=== PATIENT | female | born 1965 | race Caucasian/White ===

== ENCOUNTER 2018-09-14 22:48 | Inpatient (IN) ==
--- NOTE | 2018-09-15 01:39 | MB ---
cc: Randy Colmenares MD, PhD DATE: 09/15/2018 REASON FOR CONSULTATION: Stroke alert. HISTORY OF PRESENT ILLNESS: This is a 52-year-old woman who was in her usual state of health until this evening when she fell at home. She presented to the emergency room and was found to have a trimalleolar fracture of her right ankle and arrangements were being made for admission to the [facility] from [facility] in ER with orthopedic consultation. Initially while in the ER, she was alert, was speaking clearly with no focal deficits. At 12:45 a.m., she suddenly developed difficulty expressing herself and had a left facial droop. A stroke alert was therefore called. I was consulted and evaluated the patient via the teleneurology system. The patient is not on any anticoagulants. PAST MEDICAL HISTORY: Remarkable for hypertension and diabetes. MEDICATIONS AT HOME: Listed as metformin and glyburide. NEUROLOGICAL EXAMINATION CONDUCTED VIA THE TELENEUROLOGY SYSTEM: VITAL SIGNS: Blood pressure 112/56, pulse 93, respiratory rate 18. HIGHER CORTICAL FUNCTION TESTING: The patient is alert. She has an expressive aphasia, is unable to speak fluently. She is able to answer some questions and repeat some sentences, but it is very fragmentary. At other times, she is not able to repeat at all. There is no neglect. CRANIAL NERVES: She has got a right facial droop at this time. MOTOR: She has weakness of the right arm compared with the left. She does have a drift in the right upper extremity. There is no drift in the lower extremities. SENSORY: Intact. CEREBELLAR TESTING: There is mild dysmetria right upper extremity. IMAGING STUDIES: CT of the brain: There is some motion artifact, but there is no evidence for hemorrhage. LABORATORY DATA: The white count is 9300, hemoglobin 12.8, hematocrit 38.9%, platelet count 250,000. PT 9.7, INR 0.9, APTT 19.5. Sodium is 143, potassium 4.3, chloride 109, CO2 22, BUN is 17, creatinine 0.7, GFR is 88, glucose 378. Tox screen and serum alcohol level was 79. IMPRESSION: The examination is consistent with a probable left hemisphere stroke with expressive aphasia and mild right-sided weakness. Her calculated NIH stroke scale is 8. Because of the ankle fracture as well as the potential for head trauma on her fall, I recommended against giving TPA, especially with the ankle fracture with the hemorrhagic risk. I recommended proceeding with CT angiogram of the head and neck to assess as to whether or not there would be a large vessel occlusion amenable for clot extraction. This is currently being conducted. I called the interventional radiologist surveyor oil well directional, Dr. Kian Mora, and discussed the case with him and he is going to be reviewing the CT angiogram results. I would recommend close neurological checks, further evaluation after transfer to the main hospital with MRI and MRA of the brain, as well as echocardiogram. ADDENDUM Since the original dictation, CT angiogram has been obtained of the head and neck, and I spoke with Dr. Kian Mora regarding the results. The patient has a very distal left M2 and M3 thrombus as well as a very significant left carotid stenosis. He feels that because of these findings and the distal nature of the thrombus as well as the difficulty passing the carotid with the catheter that she would not be a candidate for intervention. Given this finding, I did recommend proceeding with IV TPA, although there was an increased risk of hemorrhage regarding the ankle fracture; however, there is definite thrombus in the left middle cerebral artery. I discussed this with Dr. Rudy Dunlap of the emergency department as the patient has now been transferred to the main ED and we will proceed with IV TPA per protocol. We will wrap the ankle and watch the ankle fracture carefully. Randy Colmenares MD, PhD MAICO/lidia , 01:58 AM , 02:06 AM
[2018-09-15] MEDS ORDERED: ALTEPLASE DRIP IV.SIG ONE (01:41)
[2018-09-15] MEDS ORDERED: Alteplase Bolus 9 MG/9 ML Syringe IV.PUSH ONE (01:41)
--- NOTE | 2018-09-15 02:17 | ED ---
HPI General Chief Complaint: Stroke Alert Time Seen by Provider: 09/15/18 01:37 EST History of Present Illness HPI Narrative: This is a 52-year-old female history diabetes mellitus, presents here as a transfer from [place] on a emergency department for stroke alert. Patient had a presentation at [facility] after she had a fall and had a broken ankle. At approximately 12:45 AM, the patient started to experiencing expressive a aphasia and receptive aphasia. She also had a right upper extremity drift and intermittent right-sided facial droop. The patient has stroke scale of 8. At that time Dr. Colmenares did tell neurology and evaluated the patient. Initially there was concern given the fact that she had a broken ankle. The initial discussion was that she was not a TPA candidate because of the ankle. Patient was transferred emergently to the [facility] and when she was on rote, Dr. Colmenares discussed with the orthopedic surgeon the risks and benefits of TPA. It was then decided that she would benefit from the TPA. When the patient arrived here, she was unable to express herself or tell me whether or not she was agreeable to the TPA. Her was on his way. When he arrived , risks and benefits were discussed and the decision was to administer the TPA. Please note that she was 2.5 hours into her stroke window when the decision was made. Related Data Home Medications Medication Instructions Recorded Confirmed glyburide 5 mg PO BID 09/14/18 09/15/18 metformin 500 mg PO BID 09/14/18 09/15/18 Allergies Allergy/AdvReac Type Severity Reaction Status Date / Time No Known Allergies Allergy Verified 09/15/18 01:40 EST Review of Systems ROS Unobtainable ROS Unobtainable: unobtainable due to mental status (Patient is unable to give me review of systems. Please see HPI.) ROS: all other systems reviewed are negative PMFSH Medical History Medical History Diabetes 1.5, managed as type 2 (Acute) Surgical History Surgical History No history of previous surgery (Acute) Social History Social History Substance History: No History of Abuse Second Hand Smoke Exposure: Yes Smoking Status: Current every day smoker Tobacco Type: Cigarettes How Often Do You Have a Drink Containing Alcohol: 2 to 4 times a month Immunization History Tetanus Immunization: Unsure Exam Narrative Exam Narrative: GENERAL: Well-developed well-nourished female in no acute respiratory distress. SKIN: Focused skin assessment warm/dry. HEAD: Atraumatic. Normocephalic. EYES: Pupils equal and round. No scleral icterus. No injection or drainage. ENT: No nasal bleeding or discharge. Mucous membranes pink and moist. NECK: Trachea midline. Supple. CARDIOVASCULAR: Regular rate and rhythm. No murmur appreciated. RESPIRATORY: No accessory muscle use. Clear to auscultation. Breath sounds equal bilaterally. GASTROINTESTINAL: Abdomen soft, non-tender, nondistended. Hepatic and splenic margins not palpable. MUSCULOSKELETAL: No obvious deformities. No clubbing. No cyanosis. No edema. NEUROLOGICAL: Awake and alert. The patient has incomprehensible words. She knows what she wants to say but cannot say. She also has a right upper extremity arm drift. Her stroke scale was then 9 here. Course Initial Documented Vital Signs Temperature 98.3 F 09/15/18 01:34 EST Pulse Rate 97 H 09/15/18 01:34 EST Respiratory Rate 18 09/15/18 01:34 EST Blood Pressure 133/70 09/15/18 01:34 EST Pulse Oximetry 96 09/15/18 01:34 EST Last Documented Vital Signs Temperature 98.3 F 09/15/18 01:34 EST Pulse Rate 108 H 09/15/18 01:55 EST Respiratory Rate 18 09/15/18 01:34 EST Blood Pressure 134/65 09/15/18 01:55 EST Pulse Oximetry 96 09/15/18 01:39 EST Critical Care Time Critical Care Time: Yes Total Critical Care Time: 45 Attestation: Aggregate critical care time was 45 minutes. Time to perform other separately billable procedures was not included in the critical care time. My time did not include minutes spent treating any other patients simultaneously or on activities that did not directly contribute to the patient's treatment. The services I provided to this patient were to treat and/or prevent clinically significant deterioration that could result in: , hemorrhage, worsening condition. I provided critical care services requiring my management, as noted below: Chart data review, documentation time, medication orders and management, vital sign assessments/reviewing monitor data, ordering and reviewing lab tests, ordering and interpreting/reviewing x-rays and diagnostic studies, care of the patient and discussion of the patient with the admitting physicians. NIH Stroke Scale NIH Stroke Scale Level of Consciousness: 0-Alert Orientation Questions: 0-Answers both correct Responds to Commands: 0-Both tasks correct Gaze Eye Movement: 1-Partial gaze palsy Visual Nunn: 1-Partial hemianopia Facial Movement: 2-Partial facial palsy Motor Functions Arm LEFT: 0-No drift Motor Functions Arm RIGHT: 1-Drift before 10 seconds Motor Functions Leg LEFT: 0-No drift Motor Functions Leg RIGHT: 0-No drift Limb Ataxia: 0-No ataxia Sensory Loss: 0-No sensory loss Best Language: 2-Severe aphasia Articulation: 2-Severe dysarthria Extinction or Inattention Sensory: 0-Absent Total: 9 Medical Decision Making MDM Narrative Medical decision making narrative: 52-year-old female presents [facility] emergency department with acute stroke. Patient also has a trimalleolar right ankle fracture. She is in a splint for her ankle fracture. The case was discussed with Dr. Colmenares who discussed with the orthopedic surgeon the risks and benefits of TPA. While the patient was on route via EMS, the decision was made to give the patient TPA. When the arrived, risks and benefits were discussed with him and he decided for the TPA. TPA was started at 2.5 hours into the stroke. The patient will be admitted to the intensive care unit , under Dr. Aneta Thomson. Case was discussed with Dr. Thomson. Dr. Saad Colmenares will also follow as a systems security consultant. Medical Screen Exam Complete: Yes Emergency Medical Condition: Yes Differential Diagnosis Differential Diagnosis: Embolic versus hemorrhagic CVA versus right ankle fracture versus contusion Discharge Plan Discharge Disposition Patient Disposition: 30 Still Patient Discharge Details Diagnosis: Acute CVA (cerebrovascular accident), Closed trimalleolar fracture of ankle, Diabetes mellitus Physicians Team ED Provider: Rudy Dunlap Primary Care Provider: Steven Paloom Rxs /Orders / Referrals /Forms Prescriptions: No Action metformin 500 mg Tablet 500 mg PO BID RF: 0 glyburide 5 mg Tablet 5 mg PO BID RF: 0 Discharge Interventions Interventions: Vital Signs Last Done: 09/15/18 01:55 Status ED Status: With Doctor
[2018-09-15] MEDS ORDERED: Morphine Inj 4 MG/ML Vial IV.PUSH ONE (02:48)
[2018-09-15] MEDS ORDERED: Morphine Inj 4 MG/ML Vial ONE (02:57)
[2018-09-15] MEDS ORDERED: Dextrose 50% in Water 50 ML Vial IV.PUSH PRN (04:58)
[2018-09-15] MEDS ORDERED: niCARdipine Inj 25 MG in Sodium Chlor 0.9% Inj 240 ML IV.CONT PRN (05:00)
[2018-09-15] MEDS ORDERED: Bisacodyl 10 MG Supp RECTAL PRN (05:11)
[2018-09-15] MEDS ORDERED: Acetaminophen 325 MG Tablet PO PRN (05:11)
[2018-09-15] MEDS: hydrALAZINE HCl Inj 20 MG/ML Vial IV.PUSH PRN ×3 (06:00→17:10)
[2018-09-15] MEDS: Sod Chloride 0.9% Inj 1,000 ML IV.CONT SCH ×2 (06:01→21:10)
--- NOTE | 2018-09-15 06:30 | P.HPCC ---
History of Present Illness Service: Critical care medicine Primary Care Physician: Steven Palomo MD Chief Complaint: Fall, R ankle fracture, stroke History of Present Illness: 52-year-old female with past medical history of diabetes, tobacco abuse who tripped over a rake in the yard and presented to [facility] with right ankle pain. She was diagnosed with R trimalleolar fracture and preparations were being made for transfer to [facility] for eventual operative management. While in the [place] ED, she became agitated with aphasia and R facial droop. Stroke alert was called. CT brain was negative for hemorrhage. She had no head trauma. Initial preference was to avoid systemic TPA due to the fracture. Stat CTA brain and carotids were performed and she was transferred to [facility] for possible IR thrombectomy/ intraarterial lysis. CTA demonstrates proximal L MCA occlusion. Dr. Dunlap states images were reviewed by Dr. Mora and patient was not a candidate for IR intervention due to carotid atherosclerotic disease with significant stenosis. At that point, decision was made to proceed with systemic TPA which has been administered. Patient has persistent expressive aphasia. No prior h/o stroke or TIA. No seizure. She was drinking tonight with friends before this happened, but denies daily EtOH. - Diagnosis (1) Acute ischemic left MCA stroke (2) Tobacco abuse (3) Aphasia due to acute stroke (4) Fall (5) Closed trimalleolar fracture of ankle (6) Diabetes mellitus (7) HLD (hyperlipidemia) Inpatient Certification: I certify that the inpatient services were ordered in accordance with Medicare regulations governing the order. This includes certification that hospital inpatient services are reasonable and necessary and in the case of services not specified as inpatient-only under 42 CFR 419.22(n), that they are appropriately provided as inpatient services in accordance to with the 2-midnight benchmark under 43 CFR 412.3(e) Estimated Total Length of Stay (Days): 7 Plans for Post Hospital Care: Not yet determined Review of Systems Constitutional: Denies chills Cardiovascular: Denies chest pain Gastrointestinal: Denies abdominal pain, Denies black, tarry stools, Denies bright, red blood in stools Genitourinary: Denies abnormal periods, Denies abnormal vaginal bleeding PMF - History History Provided By: Patient, Significant Other - Medical History Medical History: Medical History (Last Updated 09/15/18 @ 08:50 by Aneta Thomson MD) Diabetes mellitus Tobacco abuse - Surgical History Surgical History: Surgical History (Last Updated 09/14/18 @ 23:06 by Lesley Spring RN) No history of previous surgery - Family History Family History: Family History (Last Updated 09/15/18 @ 08:48 by Aneta Thomson MD) Father Hx of CABG CAD (coronary artery disease) - Tobacco History Second Hand Smoke Exposure: No Tobacco Use In Past 30 Days: Yes Smoking Status: Current some day smoker Tobacco Type: Cigarettes - Alcohol History How Often Do You Have a Drink Containing Alcohol: Monthly or less - Substance Use History Substance History: No History of Abuse - Immunization History Tetanus Immunization: Unsure Medications and Allergies Active Medications: Active Medications Acetaminophen (Tylenol) 650 mg PO Q6H PRN PRN Reason: PAIN 1-10 AND/OR FEVER >101F Al Hydroxide/Mg Hydroxide (Milk Of Magnestrellita Liq) 30 ml PO Q12H PRN PRN Reason: Mild Constipation Albuterol (Albuterol Neb (Prn)) 2.5 mg NEB Q2HR NEB PRN PRN Reason: SHORTNESS OF BREATH/WHEEZING Bisacodyl (Dulcolax Supp) 10 mg RECTAL DAILY PRN PRN Reason: SEVERE CONSITIPATION Chlorhexidine Gluconate (Chlorhexidine 2% Cloth) 3 pack TOPICAL DAILY@0400 JULIAN Stop: 09/21/18 03:59 Chlorhexidine Gluconate (Chlorhexidine 2% Cloth) 3 pack TOPICAL DAILY@0400 PRN PRN Reason: Extra cloth needed Stop: 09/21/18 03:59 Dextrose (D50w Vial) 50 ml IV.PUSH UNSCH PRN PRN Reason: PER HYPOGLYCEMIA PROTOCOL Famotidine (Pepcid Pf Inj) 20 mg IV.PUSH Q12HR JULIAN Glucagon (Glucagon Inj) 1 mg OTHER PRN PRN PRN Reason: for Hypoglycemia Protocol Hydralazine HCl (Apresoline Inj) 10 mg IV.PUSH Q4H PRN PRN Reason: SBP >180/DBP >100 Last Admin: 09/15/18 06:00 Dose: 10 mg Nicardipine HCl 25 mg/ Sodium (Chloride) 250 mls @ 50 mls/hr IV.CONT TITRATE PRN; Protocol PRN Reason: Per Protocol Sodium Chloride (Ns Inj) 1,000 mls @ 70 mls/hr IV.CONT .[id number] [facility] Last Admin: 09/15/18 06:01 Dose: 70 mls/hr Insulin Aspart (Novolog Insulin Correctional Sugar Inj) 0 unit SQ Q4HR [facility]; Protocol Labetalol HCl (Trandate Inj) 10 mg IV.PUSH Q20M PRN PRN Reason: SBP >180/DBP >100 Lactulose (Lactulose Liq) 30 ml PO DAILY PRN PRN Reason: SEVERE CONSITIPATION Ondansetron HCl (Zofran Inj) 4 mg IV.PUSH Q6H PRN PRN Reason: NAUSEA OR VOMITING Senna/Docusate Sodium (Deena-Colace) 1 tab PO BID [facility] Sennosides (Senokot) 17.2 mg PO Q12H PRN PRN Reason: Moderate Constipation Sodium Chloride (Ns Flush) 2 ml IV.FLUSH BID [facility] Sodium Chloride (Ns Flush) 2 ml IV.FLUSH PRN PRN PRN Reason: FLUSH AFTER USING IV ACCESS Allergies Allergy/AdvReac Type Severity Reaction Status Date / Time No Known Allergies Allergy Verified 09/15/18 01:40 EST Home Medications Medication Instructions Recorded Confirmed Type glyburide 5 mg PO BID 09/14/18 09/15/18 History metformin 500 mg PO BID 09/14/18 09/15/18 History Exam Vital signs: Vital Signs 09/15/18 01:34 EST 09/15/18 01:39 EST 09/15/18 01:55 EST Temperature 98.3 F Pulse Rate 97 H 108 H Respiratory Rate 18 Blood Pressure 133/70 134/65 Pulse Oximetry 96 96 09/15/18 03:10 Temperature Pulse Rate 96 H Respiratory Rate Blood Pressure 142/64 H Pulse Oximetry Intake & Output 09/14/18 09/14/18 09/15/18 06:59 18:59 05:59 Weight 62.2 kg Other: Weight On Admission 62.2 kg Narrative: GENERAL: Well-nourished, well-developed female patient who is aphasic, frustrated by this. SKIN: Warm and dry. HEAD: Atraumatic. Normocephalic. EYES: Pupils equal and round. No scleral icterus. No injection or drainage. ENT: No nasal bleeding or discharge. Mucous membranes pink and moist. NECK: Trachea midline. No JVD. CARDIOVASCULAR: Regular rate and rhythm, sinus rhythm on the monitor. No murmurs rubs or gallops. RESPIRATORY: No accessory muscle use. Clear to auscultation. Breath sounds equal bilaterally. On room air GASTROINTESTINAL: Abdomen soft, non-tender, nondistended. MUSCULOSKELETAL: Extremities without clubbing, cyanosis. Posterior splint in place RLE, knee immobilizer in place. Normal cap refill. NEUROLOGICAL: Awake and alert. Tongue deviates to right. Right lower facial droop. No pronator drift. Strength 5/5 BUE and sensation intact. 5/5 hip flexor bilaterally, 5/5 L plantar and dorsiflexion. Caprini VTE Risk Assessment Caprini VTE Risk Assessment: Moderate/High Risk (score >= 2) VTE Pharmacological Exception Reason: Documented (TPA ) Caprini Risk Assessment Model: Point Value = 1 Point Value = 2 Point Value = 3 Point Value = 5 Age 41-60 Minor surgery BMI > 25 kg/m2 Swollen legs Varicose veins or History of unexplained or recurrent spontaneous Oral contraceptives or hormone replacement Sepsis (< 1 month) Serious lung disease, including pneumonia (< 1 month) Abnormal pulmonary function Acute myocardial infarction Congestive heart failure (< 1 month) History of inflammatory bowel disease Medical patient at bed rest Age 61-74 Arthroscopic surgery Major open surgery (> 45 min) Laparoscopic surgery (> 45 min) Malignancy Confined to bed (> 72 hours) Immobilizing plaster cast Central venous access Age >= 75 History of VTE Family history of VTE Factor V Leiden Prothrombin [id number] Lupus anticoagulant Anticardiolipin antibodies Elevated serum homocysteine Heparin-induced thrombocytopenia Other congenital or acquired thrombophilia Stroke (< 1 month) Elective arthroplasty Hip, pelvis, or leg fracture Acute spinal cord injury (< 1 month) Prophylaxis Regimen: Total Risk Factor Score Risk Level Prophylaxis Regimen 0-1 Low Early ambulation 2 Moderate Order ONE of the following: *Sequential Compression Device (SCD) *Heparin 5000 units SQ BID 3-4 Higher Order ONE of the following medications: *Heparin 5000 units SQ TID *Enoxaparin/Lovenox 40 mg SQ daily (WT < 150 kg, CrCl > 30 mL/min) *Enoxaparin/Lovenox 30 mg SQ daily (WT < 150 kg, CrCl > 10-29 mL/min) *Enoxaparin/Lovenox 30 mg SQ BID (WT < 150 kg, CrCl > 30 mL/min) AND/OR *Sequential Compression Device (SCD) 5 or more Highest Order ONE of the following medications: *Heparin 5000 units SQ TID (Preferred with Epidurals) *Enoxaparin/Lovenox 40 mg SQ daily (WT < 150 kg, CrCl > 30 mL/min) *Enoxaparin/Lovenox 30 mg SQ daily (WT < 150 kg, CrCl > 10-29 mL/min) *Enoxaparin/Lovenox 30 mg SQ BID (WT < 150 kg, CrCl > 30 mL/min) AND *Sequential Compression Device (SCD) Assessment and Plan - Problem List (1) Acute ischemic left MCA stroke Code(s): I63.512 - Cerebral infarction due to unspecified occlusion or stenosis of left middle cerebral artery Status: Acute (2) Tobacco abuse Code(s): Z72.0 - Tobacco use Status: Chronic (3) Aphasia due to acute stroke Code(s): I63.9 - Cerebral infarction, unspecified; R47.01 - Aphasia Status: Acute (4) Fall Code(s): W19.XXXA - Unspecified fall, initial encounter Status: Acute (5) Closed trimalleolar fracture of ankle Code(s): S82.853A - Displaced trimalleolar fracture of unspecified lower leg, initial encounter for closed fracture Status: Acute (6) Diabetes mellitus Code(s): E11.9 - Type 2 diabetes mellitus without complications Status: Chronic (7) HLD (hyperlipidemia) Code(s): E78.5 - Hyperlipidemia, unspecified Status: Chronic - Assessment and Plan Plan: NEURO: Acute ischemic left MCA stroke Bilateral carotid stenosis s/p TPA 02:16 on 09/15. No antiplatelets or anticoagulants for 24 hours post TPA. Will need antiplatelet therapy. F/u CT brain 24 hours post-TPA. Neurochecks and BP monitoring in ISC. Maintain SBP <180/100 due to TPA, avoid hypotension with carotid disease. 2D Echo, fasting lipid, hgbA1c, telemetry monitoring (currently sinus rhythm) F/u MRI Neurology consult. Vascular surgery consult RESP: Tobacco abuse Tobacco cessation counseling discussed. On room air. CV: HTN Labetalol/hydralazine/cardene prn SBP <180/100 for first 24 hours post TPA. HLD pravastatin 40 mg daily GI: NPO. Speech therapy consult to evaluate swallow FEN/RENAL: Normal creatinine. Voiding. Replace electrolytes as indicated ID: Monitor for signs and symptoms of infection HEME: Monitor CBC ENDO: Diabetes mellitus, with acute hyperglycemia Hold oral anti-hypoglycemics including metformin Monitor bedside glucose q4 and initiate low dose sliding scale MSK: Trimalleolar ankle fracture Neurovascular checks, maintain splint and knee immobilizer. Eventual operative management when stabilized from standpoint of stroke. PROPH: SCD for DVT prophylaxis. No pharmacologic DVT prophylaxis for 24 hours post TPA. Famotidine 20 mill grams IV every 12 hours for stress ulcer prophylaxis. ACCESS: Peripheral IV. No central or arterial sticks for 24 hours post TPA Discussed with Dr. Win and Dr. Dunlap. Patient and her updated at bedside. Discussed with Dr. Dempsey; eventual operative repair when stabilized from standpoint of stroke. He states operative repair can wait up to 1- 1.5 week,, also needs to allow swelling to ease. Timing of operative repair will be determined based on stroke clinical course. Dr. Kumar assuming ortho care Sunday. Level 3 H and P H&P: Quality - VTE Deep Vein Thrombosis/Pulmonary Embolism Present on Admission: No (5) Closed trimalleolar fracture of ankle Qualifiers: Encounter type: initial encounter Laterality: right Qualified Code(s): S82.851A - Displaced trimalleolar fracture of right lower leg, initial encounter for closed fracture (6) Diabetes mellitus Qualifiers: Diabetes mellitus type: type 2 Diabetes mellitus jail insulin use: without termination clerk use Diabetes mellitus complication status: with neurologic complications Qualified Code(s): E11.69 - Type 2 diabetes mellitus with other specified complication (7) HLD (hyperlipidemia) Qualifiers: Hyperlipidemia type: mixed hyperlipidemia Qualified Code(s): E78.2 - Mixed hyperlipidemia
[2018-09-15 07:21] LABS: Chol/HDL Ratio 8.03 Ratio; HDL Cholesterol 25.5 mg/dL (40.0-60.0)
--- NOTE | 2018-09-15 08:26 | P.CONOP ---
[facility] Orthopedics Consult Note - [facility] Consult date: 09/15/18 Requesting physician: Aneta Thomson Consult reason: fracture Chief complaint: Acute CVA, Trimalleolar fx of rt ankle, diabetes Narrative: This 52-year-old female injured her right ankle late last night tripping over a rake. She had pain and an obvious deformity. She presented to the emergency department in [place] where x-rays revealed a displaced trimalleolar fracture of the ankle. It was recommended she be referred to the [facility] for surgical management. She subsequently began having symptoms of a stroke. She was admitted to the intensive care unit and evaluated by critical care and neurology. TPA was initiated. Her is at the bedside. She has an expressive aphasia. She denies other extremity injury. Review of Systems Reviewed and well outlined in the medical record PMFSH - History History Provided By: Patient, Significant Other - Medical History Medical History: Medical History (Last Reviewed 09/15/18 @ 07:46 by Claudia Angela, MOLINA) Diabetes 1.5, managed as type 2 - Surgical History Surgical History: Surgical History (Last Updated 09/14/18 @ 23:06 by Lesley Spring RN) No history of previous surgery - Tobacco History Second Hand Smoke Exposure: No Tobacco Use In Past 30 Days: Yes Smoking Status: Current some day smoker Tobacco Type: Cigarettes - Alcohol History How Often Do You Have a Drink Containing Alcohol: Monthly or less - Substance Use History Substance History: No History of Abuse - Immunization History Tetanus Immunization: Unsure Medications and Allergies Active Medications: Active Medications Acetaminophen (Tylenol) 650 mg PO Q6H PRN PRN Reason: PAIN 1-10 AND/OR FEVER >101F Al Hydroxide/Mg Hydroxide (Milk Of Magnestrellita Liq) 30 ml PO Q12H PRN PRN Reason: Mild Constipation Albuterol (Albuterol Neb (Prn)) 2.5 mg NEB Q2HR NEB PRN PRN Reason: SHORTNESS OF BREATH/WHEEZING Bisacodyl (Dulcolax Supp) 10 mg RECTAL DAILY PRN PRN Reason: SEVERE CONSITIPATION Chlorhexidine Gluconate (Chlorhexidine 2% Cloth) 3 pack TOPICAL DAILY@0400 [facility] Stop: 09/21/18 03:59 Chlorhexidine Gluconate (Chlorhexidine 2% Cloth) 3 pack TOPICAL DAILY@0400 PRN PRN Reason: Extra cloth needed Stop: 09/21/18 03:59 Dextrose (D50w Vial) 50 ml IV.PUSH UNSCH PRN PRN Reason: PER HYPOGLYCEMIA PROTOCOL Famotidine (Pepcid Pf Inj) 20 mg IV.PUSH Q12HR [facility] Glucagon (Glucagon Inj) 1 mg OTHER PRN PRN PRN Reason: for Hypoglycemia Protocol Hydralazine HCl (Apresoline Inj) 10 mg IV.PUSH Q4H PRN PRN Reason: SBP >180/DBP >100 Last Admin: 09/15/18 06:00 Dose: 10 mg Nicardipine HCl 25 mg/ Sodium (Chloride) 250 mls @ 50 mls/hr IV.CONT TITRATE PRN; Protocol PRN Reason: Per Protocol Sodium Chloride (Ns Inj) 1,000 mls @ 70 mls/hr IV.CONT .[id number] JULIAN Last Admin: 09/15/18 06:01 Dose: 70 mls/hr Insulin Aspart (Novolog Insulin Correctional Sugar Inj) 0 unit SQ Q4HR JULIAN; Protocol Labetalol HCl (Trandate Inj) 10 mg IV.PUSH Q20M PRN PRN Reason: SBP >180/DBP >100 Lactulose (Lactulose Liq) 30 ml PO DAILY PRN PRN Reason: SEVERE CONSITIPATION Ondansetron HCl (Zofran Inj) 4 mg IV.PUSH Q6H PRN PRN Reason: NAUSEA OR VOMITING Senna/Docusate Sodium (Deena-Colace) 1 tab PO BID [facility] Sennosides (Senokot) 17.2 mg PO Q12H PRN PRN Reason: Moderate Constipation Sodium Chloride (Ns Flush) 2 ml IV.FLUSH BID [facility] Sodium Chloride (Ns Flush) 2 ml IV.FLUSH PRN PRN PRN Reason: FLUSH AFTER USING IV ACCESS Allergies Allergy/AdvReac Type Severity Reaction Status Date / Time No Known Allergies Allergy Verified 09/15/18 01:40 EST Home Medications Medication Instructions Recorded Confirmed Type glyburide 5 mg PO BID 09/14/18 09/15/18 History metformin 500 mg PO BID 09/14/18 09/15/18 History Exam Vital signs: Vital Signs 09/15/18 01:34 EST 09/15/18 01:39 EST 09/15/18 01:55 EST Temperature 98.3 F Pulse Rate 97 H 108 H Respiratory Rate 18 Blood Pressure 133/70 134/65 Pulse Oximetry 96 96 09/15/18 03:10 09/15/18 04:23 09/15/18 04:24 Temperature Pulse Rate 96 H 96 H 99 H Respiratory Rate 25 H 23 Blood Pressure 142/64 H 184/84 H Pulse Oximetry 96 96 09/15/18 04:35 09/15/18 04:50 09/15/18 05:00 Temperature 98.5 F Pulse Rate 102 H 94 H 93 H Respiratory Rate 27 H 32 H 28 H Blood Pressure 178/88 H 179/92 H Pulse Oximetry 97 97 96 09/15/18 05:05 09/15/18 05:15 09/15/18 05:20 Temperature Pulse Rate 94 H 98 H 94 H Respiratory Rate 35 H 36 H 33 H Blood Pressure 197/100 H 194/88 H 170/92 H Pulse Oximetry 97 97 96 09/15/18 05:35 09/15/18 05:50 09/15/18 06:00 Temperature Pulse Rate 94 H 95 H 94 H Respiratory Rate 35 H 32 H 36 H Blood Pressure 196/85 H 194/91 H Pulse Oximetry 96 96 96 09/15/18 06:05 09/15/18 06:20 Temperature Pulse Rate 95 H 103 H Respiratory Rate 25 H 33 H Blood Pressure 192/92 H 168/81 H Pulse Oximetry 97 98 Intake & Output 09/14/18 09/15/18 09/15/18 19:59 06:59 18:59 Weight Other: # Voids Weight On Admission Narrative: The patient is awake and alert. She is able to answer some questions. Her assists with the history. The right lower extremity is in a splint. She has good capillary refill involving the toes and relates normal sensation. There are no other localizing signs of extremity injury. Results - Labs Labs: Laboratory Results - last 24 hr 09/15/18 09/15/18 09/15/18 00:40 04:34 07:19 Fibrinogen 240 POC Glucose 341 H Triglycerides 302 H Cholesterol 205 H LDL Cholesterol, Calc 119 H HDL Cholesterol 25.5 L Cholesterol/HDL Ratio 8.03 Assessment and Plan - Assessment and Plan Trimalleolar fracture right ankle Acute CVA with recent TPA treatment Diabetes Tobacco use The findings were discussed. The nature of the injury and the recommended plan of treatment was discussed. Her case was also discussed with the rock wool applicator. Because she recently had TPA, it is not recommended to proceed with surgical management of the right ankle at this time. This may also be of benefit to allow swelling to decrease. Recommendations are for ORIF when stable from a neurological standpoint. Because of this delay, she will most likely be referred to Dr. Kumar for definitive management. Patient and her acknowledge full understanding and agreed to the plan.
[2018-09-15] MEDS: Insulin NovoLOG Aspart Correctional Sugar Inj SQ SCH ×4 (08:30→21:36)
[2018-09-15] MEDS: Famotidine PF Inj 20 MG/2 ML Vial IV.PUSH SCH ×2 (09:29→21:36)
[2018-09-15] MEDS: Senna/Docusate Sodium 8.6/50 MG Tablet PO SCH ×2 (09:30→21:12)
[2018-09-15] MEDS: Labetalol HCl Inj 100 MG/20 ML Vial IV.PUSH PRN (09:30)
--- NOTE | 2018-09-15 10:09 | P.PNNEU ---
Subjective Active Medications: Active Medications Acetaminophen (Tylenol) 650 mg PO Q6H PRN PRN Reason: PAIN 1-10 AND/OR FEVER >101F Al Hydroxide/Mg Hydroxide (Milk Of Magnesia Liq) 30 ml PO Q12H PRN PRN Reason: Mild Constipation Albuterol (Albuterol Neb (Prn)) 2.5 mg NEB Q2HR NEB PRN PRN Reason: SHORTNESS OF BREATH/WHEEZING Bisacodyl (Dulcolax Supp) 10 mg RECTAL DAILY PRN PRN Reason: SEVERE CONSITIPATION Chlorhexidine Gluconate (Chlorhexidine 2% Cloth) 3 pack TOPICAL DAILY@0400 [facility] Stop: 09/21/18 03:59 Chlorhexidine Gluconate (Chlorhexidine 2% Cloth) 3 pack TOPICAL DAILY@0400 PRN PRN Reason: Extra cloth needed Stop: 09/21/18 03:59 Dextrose (D50w Vial) 50 ml IV.PUSH UNSCH PRN PRN Reason: PER HYPOGLYCEMIA PROTOCOL Famotidine (Pepcid Pf Inj) 20 mg IV.PUSH Q12HR [facility] Last Admin: 09/15/18 09:29 Dose: 20 mg Glucagon (Glucagon Inj) 1 mg OTHER PRN PRN PRN Reason: for Hypoglycemia Protocol Hydralazine HCl (Apresoline Inj) 10 mg IV.PUSH Q4H PRN PRN Reason: SBP >180/DBP >100 Last Admin: 09/15/18 06:00 Dose: 10 mg Nicardipine HCl 25 mg/ Sodium (Chloride) 250 mls @ 50 mls/hr IV.CONT TITRATE PRN; Protocol PRN Reason: Per Protocol Sodium Chloride (Ns Inj) 1,000 mls @ 70 mls/hr IV.CONT .[id number] [facility] Last Admin: 09/15/18 06:01 Dose: 70 mls/hr Insulin Aspart (Novolog Insulin Correctional Sugar Inj) 0 unit SQ Q4HR [facility]; Protocol Last Admin: 09/15/18 08:30 Dose: 5 unit Labetalol HCl (Trandate Inj) 10 mg IV.PUSH Q20M PRN PRN Reason: SBP >180/DBP >100 Last Admin: 09/15/18 09:30 Dose: 10 mg Lactulose (Lactulose Liq) 30 ml PO DAILY PRN PRN Reason: SEVERE CONSITIPATION Ondansetron HCl (Zofran Inj) 4 mg IV.PUSH Q6H PRN PRN Reason: NAUSEA OR VOMITING Pravastatin Sodium (Pravachol) 40 mg PO [facility] Senna/Docusate Sodium (Deena-Colace) 1 tab PO BID [facility] Last Admin: 09/15/18 09:30 Dose: Not Given Sennosides (Senokot) 17.2 mg PO Q12H PRN PRN Reason: Moderate Constipation Sodium Chloride (Ns Flush) 2 ml IV.FLUSH BID [facility] Last Admin: 09/15/18 09:29 Dose: 2 ml Sodium Chloride (Ns Flush) 2 ml IV.FLUSH PRN PRN PRN Reason: FLUSH AFTER USING IV ACCESS Allergies/Adverse Reactions: Allergies Allergy/AdvReac Type Severity Reaction Status Date / Time No Known Allergies Allergy Verified 09/15/18 01:40 EST Physical Exam Vital signs: Vital Signs 09/15/18 01:34 EST 09/15/18 01:39 EST 09/15/18 01:55 EST Temperature 98.3 F Pulse Rate 97 H 108 H Respiratory Rate 18 Blood Pressure 133/70 134/65 Pulse Oximetry 96 96 09/15/18 03:10 09/15/18 04:23 09/15/18 04:24 Temperature Pulse Rate 96 H 96 H 99 H Respiratory Rate 25 H 23 Blood Pressure 142/64 H 184/84 H Pulse Oximetry 96 96 09/15/18 04:35 09/15/18 04:50 09/15/18 05:00 Temperature 98.5 F Pulse Rate 102 H 94 H 93 H Respiratory Rate 27 H 32 H 28 H Blood Pressure 178/88 H 179/92 H Pulse Oximetry 97 97 96 09/15/18 05:05 09/15/18 05:15 09/15/18 05:20 Temperature Pulse Rate 94 H 98 H 94 H Respiratory Rate 35 H 36 H 33 H Blood Pressure 197/100 H 194/88 H 170/92 H Pulse Oximetry 97 97 96 09/15/18 05:35 09/15/18 05:50 09/15/18 06:00 Temperature Pulse Rate 94 H 95 H 94 H Respiratory Rate 35 H 32 H 36 H Blood Pressure 196/85 H 194/91 H Pulse Oximetry 96 96 96 09/15/18 06:05 09/15/18 06:20 09/15/18 08:00 Temperature 98.8 F Pulse Rate 95 H 103 H 110 H Respiratory Rate 25 H 33 H 25 H Blood Pressure 192/92 H 168/81 H 172/77 H Pulse Oximetry 97 98 96 Intake & Output 09/14/18 09/15/18 09/15/18 19:59 06:59 18:59 Weight Other: # Voids Weight On Admission Objective Laboratory Results - last 24 hr 09/15/18 09/15/18 09/15/18 00:40 03:30 04:34 Fibrinogen POC Glucose 341 H Triglycerides 302 H Cholesterol 205 H LDL Cholesterol, Calc 119 H HDL Cholesterol 25.5 L Cholesterol/HDL Ratio 8.03 Nasal Screen MRSA (PCR) Not detected 09/15/18 09/15/18 07:19 08:04 Fibrinogen 240 POC Glucose 282 H Triglycerides Cholesterol LDL Cholesterol, Calc HDL Cholesterol Cholesterol/HDL Ratio Nasal Screen MRSA (PCR) Review/Management - Review/Management Plan: ADDENDUM to TELENEUROLOGY CONSULT Since my original dictation, the patient underwent CT angiogram of the brain and the neck. I discussed the results as soon as available early this am with Dr Kian Mora of radiology who reported a distal left M2 and M3 thrombus on the left. He felt that given the very distal nature of the thrombus as well as aberrant anatomy of the carotid system with stenosis that the patient would not be a candidate for intervention. Because of this, I recommended proceeding with iv TPA since she was not a candidate for thrombectomy despite the ankle fracture. THe patient had been transferred to the main ED and was within the time window for iv TPA and I conveyed this recommendation to Dr Rudy Dunlap in the main ED.
--- NOTE | 2018-09-15 10:21 | P.CONVS ---
History of Present Illness Service: Vascular surgery Consult date: 09/15/18 Reason for Consult: Acute left hemispheric stroke, carotid artery stenosis Primary Care Provider: Steven Palomo MD Chief Complaint: Fall, R ankle fracture, stroke History of Present Illness: 53-year-old female who presented to the ER with acute right ankle fracture. During her ER visit she started developing stroke symptoms. The workup was completed and she is noted to have acute left MCA occlusion. She is not a candidate for any intervention by IR due to left carotid artery stenosis. She was given systemic TPA. Vascular was consulted f to evaluate her carotid artery stenosis. She currently have expressive aphasia. She denies any dysphagia. She complains of right ankle pain. She denies any chest pain or shortness of breath. Review of Systems All other systems reviewed negative except as stated in HPI [facility] - History History Provided By: Patient, Significant Other - Medical History Medical History: Medical History (Last Updated 09/15/18 @ 08:50 by Aneta Thomson MD) Diabetes mellitus Tobacco abuse - Surgical History Surgical History: Surgical History (Last Updated 09/14/18 @ 23:06 by Lesley Spring RN) No history of previous surgery - Family History Family History: Family History (Last Updated 09/15/18 @ 08:48 by Aneta Thomson MD) Father Hx of CABG CAD (coronary artery disease) - Tobacco History Second Hand Smoke Exposure: No Tobacco Use In Past 30 Days: Yes Smoking Status: Current some day smoker Tobacco Type: Cigarettes - Alcohol History How Often Do You Have a Drink Containing Alcohol: Monthly or less - Substance Use History Substance History: No History of Abuse - Immunization History Tetanus Immunization: Unsure Medications and Allergies Active Medications: Active Medications Acetaminophen (Tylenol) 650 mg PO Q6H PRN PRN Reason: PAIN 1-10 AND/OR FEVER >101F Al Hydroxide/Mg Hydroxide (Milk Of Nils Liq) 30 ml PO Q12H PRN PRN Reason: Mild Constipation Albuterol (Albuterol Neb (Prn)) 2.5 mg NEB Q2HR NEB PRN PRN Reason: SHORTNESS OF BREATH/WHEEZING Bisacodyl (Dulcolax Supp) 10 mg RECTAL DAILY PRN PRN Reason: SEVERE CONSITIPATION Chlorhexidine Gluconate (Chlorhexidine 2% Cloth) 3 pack TOPICAL DAILY@0400 [facility] Stop: 09/21/18 03:59 Chlorhexidine Gluconate (Chlorhexidine 2% Cloth) 3 pack TOPICAL DAILY@0400 PRN PRN Reason: Extra cloth needed Stop: 09/21/18 03:59 Dextrose (D50w Vial) 50 ml IV.PUSH UNSCH PRN PRN Reason: PER HYPOGLYCEMIA PROTOCOL Famotidine (Pepcid Pf Inj) 20 mg IV.PUSH Q12HR [facility] Last Admin: 09/15/18 09:29 Dose: 20 mg Glucagon (Glucagon Inj) 1 mg OTHER PRN PRN PRN Reason: for Hypoglycemia Protocol Hydralazine HCl (Apresoline Inj) 10 mg IV.PUSH Q4H PRN PRN Reason: SBP >180/DBP >100 Last Admin: 09/15/18 06:00 Dose: 10 mg Nicardipine HCl 25 mg/ Sodium (Chloride) 250 mls @ 50 mls/hr IV.CONT TITRATE PRN; Protocol PRN Reason: Per Protocol Sodium Chloride (Ns Inj) 1,000 mls @ 70 mls/hr IV.CONT .[id number] [facility] Last Admin: 09/15/18 06:01 Dose: 70 mls/hr Insulin Aspart (Novolog Insulin Correctional Sugar Inj) 0 unit SQ Q4HR [facility]; Protocol Last Admin: 09/15/18 08:30 Dose: 5 unit Labetalol HCl (Trandate Inj) 10 mg IV.PUSH Q20M PRN PRN Reason: SBP >180/DBP >100 Last Admin: 09/15/18 09:30 Dose: 10 mg Lactulose (Lactulose Liq) 30 ml PO DAILY PRN PRN Reason: SEVERE CONSITIPATION Ondansetron HCl (Zofran Inj) 4 mg IV.PUSH Q6H PRN PRN Reason: NAUSEA OR VOMITING Pravastatin Sodium (Pravachol) 40 mg PO HS [facility] Senna/Docusate Sodium (Deena-Colace) 1 tab PO BID [facility] Last Admin: 09/15/18 09:30 Dose: Not Given Sennosides (Senokot) 17.2 mg PO Q12H PRN PRN Reason: Moderate Constipation Sodium Chloride (Ns Flush) 2 ml IV.FLUSH BID [facility] Last Admin: 09/15/18 09:29 Dose: 2 ml Sodium Chloride (Ns Flush) 2 ml IV.FLUSH PRN PRN PRN Reason: FLUSH AFTER USING IV ACCESS Allergies Allergy/AdvReac Type Severity Reaction Status Date / Time No Known Allergies Allergy Verified 09/15/18 01:40 EST Home Medications Medication Instructions Recorded Confirmed Type glyburide 5 mg PO BID 09/14/18 09/15/18 History metformin 500 mg PO BID 09/14/18 09/15/18 History Physical Exam Vital Signs / I&O: Vital Signs 09/15/18 01:34 EST 09/15/18 01:39 EST 09/15/18 01:55 EST Temperature 98.3 F Pulse Rate 97 H 108 H Respiratory Rate 18 Blood Pressure 133/70 134/65 Pulse Oximetry 96 96 09/15/18 03:10 09/15/18 04:23 09/15/18 04:24 Temperature Pulse Rate 96 H 96 H 99 H Respiratory Rate 25 H 23 Blood Pressure 142/64 H 184/84 H Pulse Oximetry 96 96 09/15/18 04:35 09/15/18 04:50 09/15/18 05:00 Temperature 98.5 F Pulse Rate 102 H 94 H 93 H Respiratory Rate 27 H 32 H 28 H Blood Pressure 178/88 H 179/92 H Pulse Oximetry 97 97 96 09/15/18 05:05 09/15/18 05:15 09/15/18 05:20 Temperature Pulse Rate 94 H 98 H 94 H Respiratory Rate 35 H 36 H 33 H Blood Pressure 197/100 H 194/88 H 170/92 H Pulse Oximetry 97 97 96 09/15/18 05:35 09/15/18 05:50 09/15/18 06:00 Temperature Pulse Rate 94 H 95 H 94 H Respiratory Rate 35 H 32 H 36 H Blood Pressure 196/85 H 194/91 H Pulse Oximetry 96 96 96 09/15/18 06:05 09/15/18 06:20 09/15/18 08:00 Temperature 98.8 F Pulse Rate 95 H 103 H 110 H Respiratory Rate 25 H 33 H 25 H Blood Pressure 192/92 H 168/81 H 172/77 H Pulse Oximetry 97 98 96 Intake & Output 09/14/18 09/15/18 09/15/18 19:59 06:59 18:59 Weight Other: # Voids Weight On Admission Neuro: Expressive aphasia, tongue deviation to the right, motor 5/5 bilaterally. Her sensory is intact bilaterally HEENT: Normocephalic atraumatic Neck: Supple Heart: S1-S2 Lungs: Clear to auscultation bilateral Abdomen: Soft nontender nondistended Vascular: Palpable pulses throughout Laboratory Results - last 24 hr 09/15/18 09/15/18 09/15/18 00:40 03:30 04:34 Fibrinogen POC Glucose 341 H Triglycerides 302 H Cholesterol 205 H LDL Cholesterol, Calc 119 H HDL Cholesterol 25.5 L Cholesterol/HDL Ratio 8.03 Nasal Screen MRSA (PCR) Not detected 09/15/18 09/15/18 07:19 08:04 Fibrinogen 240 POC Glucose 282 H Triglycerides Cholesterol LDL Cholesterol, Calc HDL Cholesterol Cholesterol/HDL Ratio Nasal Screen MRSA (PCR) Assessment and Plan - Plan #1 acute left hemispheric stroke with occlusion of the left MCA. CT of the neck is reviewed. Very low bifurcation of the left carotid artery. Approximate 60% stenosis of the left internal carotid artery with ulcerative plaque and adherent thrombus. There is approximately 50% stenosis of the proximal left common carotid artery. Patient is currently on best medical therapy and I recommended smoke cessation. Her surgical options will include left carotid artery endarterectomy. She may need a sternotomy to obtain proximal control given the low bifurcation of the common carotid artery. Her other option will be left carotid artery stenting, this will be a very high risk for stroke given the nature of the plaque and adherent thrombus. Will await MRI of the brain to identify the size of the stroke and proceed with treatment plan. 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 Patient is currently asymptomatic with no evidence of dysphagia lusoria Continue with conservative management. Thank you for allowing me to participate in this patient care. If you have any questions please do not hesitate to call my cell phone Everardo Jack MD [facility] [phone]
--- NOTE | 2018-09-15 11:28 | P.PN ---
Subjective Interval history: per pt's speech is better s/p tpa early this am. seen by teleneurology Dr Colmenares. Physical Exam Vital signs: Vital Signs 09/15/18 01:34 EST 09/15/18 01:39 EST 09/15/18 01:55 EST Temperature 98.3 F Pulse Rate 97 H 108 H Respiratory Rate 18 Blood Pressure 133/70 134/65 Pulse Oximetry 96 96 09/15/18 03:10 09/15/18 04:23 09/15/18 04:24 Temperature Pulse Rate 96 H 96 H 99 H Respiratory Rate 25 H 23 Blood Pressure 142/64 H 184/84 H Pulse Oximetry 96 96 09/15/18 04:35 09/15/18 04:50 09/15/18 05:00 Temperature 98.5 F Pulse Rate 102 H 94 H 93 H Respiratory Rate 27 H 32 H 28 H Blood Pressure 178/88 H 179/92 H Pulse Oximetry 97 97 96 09/15/18 05:05 09/15/18 05:15 09/15/18 05:20 Temperature Pulse Rate 94 H 98 H 94 H Respiratory Rate 35 H 36 H 33 H Blood Pressure 197/100 H 194/88 H 170/92 H Pulse Oximetry 97 97 96 09/15/18 05:35 09/15/18 05:50 09/15/18 06:00 Temperature Pulse Rate 94 H 95 H 94 H Respiratory Rate 35 H 32 H 36 H Blood Pressure 196/85 H 194/91 H Pulse Oximetry 96 96 96 09/15/18 06:05 09/15/18 06:20 09/15/18 08:00 Temperature 98.8 F Pulse Rate 95 H 103 H 110 H Respiratory Rate 25 H 33 H 25 H Blood Pressure 192/92 H 168/81 H 172/77 H Pulse Oximetry 97 98 96 Intake & Output 09/14/18 09/15/18 09/15/18 19:59 06:59 18:59 Weight Other: # Voids Weight On Admission - Constitutional no acute distress - Routine HEENT Exam Head: Present: normocephalic Eye: Present: EOMI, PERRL - Routine Cardiovascular Exam Present: RRR, S1, S2 - Routine Abdominal Exam Present: soft - Routine Neurological Exam Present: alert, CN II-XII intact expressive aphasia motor ue nl right leg in cast but can lift against gravity. Results - Labs Laboratory Results - last 24 hr 09/15/18 09/15/18 09/15/18 00:40 03:30 04:34 Fibrinogen POC Glucose 341 H Triglycerides 302 H Cholesterol 205 H LDL Cholesterol, Calc 119 H HDL Cholesterol 25.5 L Cholesterol/HDL Ratio 8.03 Nasal Screen MRSA (PCR) Not detected 09/15/18 09/15/18 07:19 08:04 Fibrinogen 240 POC Glucose 282 H Triglycerides Cholesterol LDL Cholesterol, Calc HDL Cholesterol Cholesterol/HDL Ratio Nasal Screen MRSA (PCR) - Imaging reviewed Assessment and Plan - Plan ct as f/u tpa mri brain appreciate vascular surgeons input no anticoag or antiplatlets 24h post tpa bedrest today. cont current care post tpa.
--- NOTE | 2018-09-15 14:23 | MR ---
EXAM DATE: 09/15/2018 2:04 PM EST AGE/SEX: 52 years / Female INDICATIONS: CVA. CLINICAL DATA: This is the patient's initial encounter. Patient reports that signs and symptoms have been present for 1 day and indicates a pain score of 0/10. MEDICAL/SURGICAL HISTORY: Hypertension. Diabetes mellitus type II. None. COMPARISON: [facility]DL, CTA HEAD W CONTRAST W 3D, 09/15/2018. . TECHNIQUE: Multiplanar, multisequence examination of the brain was performed without contrast. FINDINGS: Cerebrum: Restricted diffusion has developed within the left insula, opercular region of the left fr ontal lobe and in the left posterior parietal cortex. Minimal restricted diffusion is also seen in th e head of the caudate nucleus on the left. There is no evidence of acute hemorrhage or significant ma ss effect. White Matter: No significant signal abnormalities are seen in the white matter. Posterior Fossa: The cerebellum and brainstem are intact. The 4th ventricle is midline. The cerebel lopontine angle is unremarkable. The cerebellar tonsils are normal in position. Diffusion Imaging: No other focal areas of restricted diffusion are seen. Extracranial: The visualized portions of the orbits and paranasal sinuses are unremarkable. CONCLUSION: 1. Focal areas of restricted diffusion in the left frontal, left parietal and left insular lobes yuli racteristic of acute middle cerebral artery infarcts. 2. No evidence of hemorrhage or significant edema. Electronically signed by: Kaleb Chandler MD 09/15/2018 2:21 PM EST
[2018-09-15] MEDS ORDERED: Metoprolol Inj 5 MG/5 ML Vial IV.PUSH PRN (17:40)
[2018-09-15] MEDS ORDERED: levETIRAcetam 1000mg/100mL Inj 100 ML IV.SIG ONE (18:00)
[2018-09-15] MEDS ORDERED: Phenylephrine Inj 40 MG in Sodium Chlor 0.9% Inj 496 ML IV.CONT PRN (18:00)
[2018-09-16] MEDS: Insulin NovoLOG Aspart Correctional Sugar Inj SQ SCH ×6 (00:21→20:54)
--- NOTE | 2018-09-16 03:26 | CT ---
EXAM DATE: 09/16/2018 3:19 AM EST AGE/SEX: 52 years / Female INDICATIONS: Hemiparesis. Post TPA. CLINICAL DATA: This is the patient's subsequent encounter. Patient reports that signs and symptoms h ave been present for 1 day and indicates a pain score of 0/10. MEDICAL/SURGICAL HISTORY: Diabetes. None. RADIATION DOSE: 34.63 CTDI (mGy) COMPARISON: HHDL, CTA HEAD W CONTRAST W 3D, 09/15/2018. . TECHNIQUE: CT of the head without contrast. Using automated exposure control and adjustment of the mA and/or kV according to patient size, radiation dose was kept as low as reasonably achievable to ob tain optimal diagnostic quality images. DICOM format image data is available electronically for revi ew and comparison. FINDINGS: There is patchy evolving hypodensity in the left MCA territory, including within the basal ganglia. M ild mass effect with slight compression of the ipsilateral lateral ventricle and slight asymmetric ef facement of the hemispheric cortical sulci. No evidence of midline shift. No evidence of macroscopic hemorrhage. Contralateral right hemisphere is stable and benign. Posterior fossa and brainstem struct ures are unremarkable. CONCLUSION: Evolving left MCA territory hypodensities. No evidence of hemorrhage . Electronically signed by: Geraldo Pruitt MD 09/16/2018 3:25 AM EST
[2018-09-16] MEDS: Chlorhexidine Gluconate 2% 1 Pack (2 Cloths) TOPICAL SCH (03:58)
[2018-09-16] MEDS ORDERED: Chlorhexidine Gluconate 2% 1 Pack (2 Cloths) TOPICAL PRN (04:00)
[2018-09-16 04:36] LABS: Baso # (Auto) 0.1 th/mm3 (0.0-0.2); Baso % (Auto) 0.8 % (0.0-2.0); Eos % (Auto) 0.4 % (0.0-4.0); Hematocrit 35.4 % (35.0-46.0); Hemoglobin 11.9 gm/dL (11.6-15.3); Lymph # (Auto) 1.6 th/mm3 (1.0-4.8); Lymph % (Auto) 16.5 % (9.0-44.0); Mean Corpuscular HGB Conc 33.6 % (32.0-36.0); Mean Corpuscular Hemoglobin 28.7 pg (27.0-34.0); Mean Corpuscular Volume 85.3 fL (80.0-100.0); Mean Platelet Volume 9.5 fL (7.0-11.0); Mono # (Auto) 0.7 th/mm3 (0.0-0.9); Neut # (Auto) 7.3 th/mm3 (1.8-7.7); Neut % (Auto) 75.3 % (16.0-70.0); Platelet Count 187 th/mm3 (150-450); Red Blood Count 4.15 mil/mm3 (4.00-5.30); Red Cell Distribution Width 13.6 % (11.6-17.2); White Blood Count 9.6 th/mm3 (4.0-11.0)
[2018-09-16 04:58] LABS: Anion Gap 10 meq/L (5-15); Blood Urea Nitrogen 9 mg/dL (7-18); Calcium 7.7 mg/dL (8.5-10.1); Carbon Dioxide 23.9 meq/L (21.0-32.0); Chloride 108 meq/L (98-107); Glomerular Filtration Rate Greater Than 89 mL/min (>89); Glucose,Random 243 mg/dL (74-106); Potassium 3.3 meq/L (3.5-5.1); Sodium 142 meq/L (136-145)
--- NOTE | 2018-09-16 07:25 | P.CONOP ---
[facility] Orthopedics Consult Note - [facility] Consult date: 09/16/18 Chief complaint: Acute CVA, Trimalleolar fx of rt ankle, diabetes Narrative: Stephanie is a 52-year-old female. She has a history of diabetes and tobacco use. She was outside in her yard around her fire pit. She is walking back to the house and tripped over her break. She was able to crawl to the back door and get her 's attention. Her was able to get her into her car and brought her to [facility] emergency room. She has subsequent transferred to [facility] and [place]. According to patient's he did initially notice some facial drooping when he first saw his on the ground. That seemed to resolve and she was coherent. While she was in the emergency room she began developing facial drooping again with slurred speech. She also developed aphasia. She is currently in the intensive care unit. She is sleeping comfortably and difficult to arouse. She is aphasic at this time. X- rays in the emergency room revealed a displaced right ankle fracture. She has been placed into a splint. 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 She also has significant carotid atherosclerotic disease and stenosis. She has been given TPA. According to patient's , her only complaint was her right ankle pain initially. She was able to bear weight on her left leg. Review of Systems Stephanie is currently aphasic. She is unable to give any response to review of systems, family history, social history, past medical history questions. [facility] - History History Provided By: Patient, Significant Other - Medical History Medical History: Medical History (Last Reviewed 09/16/18 @ 07:18 by Arvind Linder MD) Diabetes mellitus Tobacco abuse - Surgical History Surgical History: Surgical History (Last Reviewed 09/16/18 @ 07:18 by Arvind Linder MD) No history of previous surgery - Family History Family History: Family History (Last Reviewed 09/16/18 @ 07:18 by Arvind Linder MD) Father Hx of CABG CAD (coronary artery disease) - Social History I have reviewed the patient's Social History: Yes - Tobacco History Second Hand Smoke Exposure: No Tobacco Use In Past 30 Days: Yes Smoking Status: Current some day smoker Tobacco Type: Cigarettes - Alcohol History How Often Do You Have a Drink Containing Alcohol: Monthly or less - Substance Use History Substance History: No History of Abuse - Immunization History Tetanus Immunization: Unsure Medications and Allergies Active Medications: Active Medications Acetaminophen (Tylenol) 650 mg PO Q6H PRN PRN Reason: PAIN 1-10 AND/OR FEVER >101F Al Hydroxide/Mg Hydroxide (Milk Of Magnesia Liq) 30 ml PO Q12H PRN PRN Reason: Mild Constipation Albuterol (Albuterol Neb (Prn)) 2.5 mg NEB Q2HR NEB PRN PRN Reason: SHORTNESS OF BREATH/WHEEZING Bisacodyl (Dulcolax Supp) 10 mg RECTAL DAILY PRN PRN Reason: SEVERE CONSITIPATION Chlorhexidine Gluconate (Chlorhexidine 2% Cloth) 3 pack TOPICAL DAILY@0400 [facility] Stop: 09/21/18 03:59 Last Admin: 09/16/18 03:58 Dose: 3 pack Chlorhexidine Gluconate (Chlorhexidine 2% Cloth) 3 pack TOPICAL DAILY@0400 PRN PRN Reason: Extra cloth needed Stop: 09/21/18 03:59 Dextrose (D50w Vial) 50 ml IV.PUSH UNSCH PRN PRN Reason: PER HYPOGLYCEMIA PROTOCOL Famotidine (Pepcid Pf Inj) 20 mg IV.PUSH Q12HR [facility] Last Admin: 09/15/18 21:36 Dose: 20 mg Glucagon (Glucagon Inj) 1 mg OTHER PRN PRN PRN Reason: for Hypoglycemia Protocol Hydralazine HCl (Apresoline Inj) 10 mg IV.PUSH Q4H PRN PRN Reason: SBP >180/DBP >100 Last Admin: 09/15/18 17:10 Dose: 10 mg Nicardipine HCl 25 mg/ Sodium (Chloride) 250 mls @ 50 mls/hr IV.CONT TITRATE PRN; Protocol PRN Reason: Per Protocol Sodium Chloride (Ns Inj) 1,000 mls @ 70 mls/hr IV.CONT .[id number] [facility] Last Admin: 09/15/18 21:10 Dose: 70 mls/hr Acetaminophen (Ofirmev Inj) 1,000 mg in 100 mls @ 400 mls/hr IV.SIG Q6H PRN PRN Reason: FEVER OR PAIN 1-10 Last Infusion: 09/16/18 00:17 Dose: Infused Phenylephrine HCl 40 mg/ (Sodium Chloride) 500 mls @ 30 mls/hr IV.CONT TITRATE PRN; Protocol PRN Reason: See Protocol Last Admin: 09/15/18 18:08 Dose: 40 mcg/min, 30 mls/hr Levetiracetam 500 mg/ Sodium (Chloride) 105 mls @ 400 mls/hr IV.SIG Q12H [facility] Last Infusion: 09/16/18 05:35 Dose: Infused Insulin Aspart (Novolog Insulin Correctional Sugar Inj) 0 unit SQ Q4HR [facility]; Protocol Last Admin: 09/16/18 03:58 Dose: 3 unit Labetalol HCl (Trandate Inj) 10 mg IV.PUSH Q20M PRN PRN Reason: SBP >180/DBP >100 Last Admin: 09/15/18 09:30 Dose: 10 mg Lactulose (Lactulose Liq) 30 ml PO DAILY PRN PRN Reason: SEVERE CONSITIPATION Metoprolol Tartrate (Lopressor Inj) 5 mg IV.PUSH Q6H PRN PRN Reason: Pulse > 100 Last Admin: 09/15/18 18:12 Dose: 5 mg Ondansetron HCl (Zofran Inj) 4 mg IV.PUSH Q6H PRN PRN Reason: NAUSEA OR VOMITING Pravastatin Sodium (Pravachol) 40 mg PO HS [facility] Last Admin: 09/15/18 21:11 Dose: Not Given Senna/Docusate Sodium (Deena-Colace) 1 tab PO BID [facility] Last Admin: 09/15/18 21:12 Dose: Not Given Sennosides (Senokot) 17.2 mg PO Q12H PRN PRN Reason: Moderate Constipation Sodium Chloride (Ns Flush) 2 ml IV.FLUSH BID [facility] Last Admin: 09/15/18 21:37 Dose: Not Given Sodium Chloride (Ns Flush) 2 ml IV.FLUSH PRN PRN PRN Reason: FLUSH AFTER USING IV ACCESS Terbutaline Sulfate (Brethine Inj) 1 mg SQ UNSCH PRN PRN Reason: For Extravasation Allergies Allergy/AdvReac Type Severity Reaction Status Date / Time No Known Allergies Allergy Verified 09/15/18 01:40 EST Home Medications Medication Instructions Recorded Confirmed Type glyburide 5 mg PO BID 09/14/18 09/15/18 History metformin 500 mg PO BID 09/14/18 09/15/18 History Exam Vital signs: Vital Signs 09/15/18 08:00 09/15/18 12:00 09/15/18 16:00 Temperature 98.8 F 100.1 F H 98.8 F Pulse Rate 110 H 116 H 110 H Respiratory Rate 25 H 26 H 27 H Blood Pressure 172/77 H 130/71 176/90 H Pulse Oximetry 96 97 98 09/15/18 17:00 09/15/18 17:08 09/15/18 17:40 Temperature Pulse Rate 112 H 128 H 139 H Respiratory Rate 28 H 25 H 33 H Blood Pressure 168/75 H 131/67 Pulse Oximetry 98 98 97 09/15/18 18:00 09/15/18 18:45 09/15/18 19:00 Temperature Pulse Rate 124 H 95 H 106 H Respiratory Rate 28 H 23 24 Blood Pressure 144/81 H 148/84 H Pulse Oximetry 97 97 97 09/15/18 19:15 09/15/18 19:30 09/15/18 19:45 Temperature Pulse Rate 92 H 96 H 104 H Respiratory Rate 25 H 26 H 26 H Blood Pressure 155/88 H 175/89 H 156/76 H Pulse Oximetry 98 98 09/15/18 20:00 09/15/18 20:15 09/15/18 20:30 Temperature 100.5 F H Pulse Rate 98 H 100 H 95 H Respiratory Rate 27 H 25 H 26 H Blood Pressure 163/82 H 173/82 H 159/77 H Pulse Oximetry 97 97 09/15/18 20:45 09/15/18 21:00 09/15/18 21:15 Temperature Pulse Rate 114 H 102 H 103 H Respiratory Rate 27 H 26 H 26 H Blood Pressure 187/84 H 165/90 H 160/78 H Pulse Oximetry 98 97 97 09/15/18 21:30 09/15/18 21:45 09/15/18 22:00 Temperature Pulse Rate 98 H 98 H 94 H Respiratory Rate 27 H 25 H 39 H Blood Pressure 153/76 H 155/69 H 148/76 H Pulse Oximetry 97 95 96 09/15/18 22:15 09/15/18 22:30 09/15/18 22:45 Temperature Pulse Rate 100 H 92 H 91 H Respiratory Rate 44 H 24 24 Blood Pressure 151/76 H 135/64 142/70 H Pulse Oximetry 97 97 98 09/15/18 23:00 09/15/18 23:15 09/15/18 23:30 Temperature Pulse Rate 96 H 97 H 96 H Respiratory Rate 26 H 30 H 42 H Blood Pressure 139/63 155/67 H 160/70 H Pulse Oximetry 97 97 97 09/15/18 23:45 09/16/18 00:00 09/16/18 00:15 Temperature Pulse Rate 108 H 107 H 94 H Respiratory Rate 43 H 27 H 24 Blood Pressure 160/74 H 154/72 H 148/66 H Pulse Oximetry 96 94 L 95 09/16/18 00:30 09/16/18 00:45 09/16/18 01:00 Temperature Pulse Rate 92 H 110 H 89 Respiratory Rate 25 H 27 H 25 H Blood Pressure 158/66 H 154/67 H 166/74 H Pulse Oximetry 96 96 96 09/16/18 01:15 09/16/18 01:30 09/16/18 01:45 Temperature Pulse Rate 104 H 91 H 91 H Respiratory Rate 28 H 25 H 25 H Blood Pressure 163/73 H 135/65 150/71 H Pulse Oximetry 98 97 96 09/16/18 02:00 09/16/18 02:17 09/16/18 02:30 Temperature Pulse Rate 89 99 H 87 Respiratory Rate 25 H 30 H 25 H Blood Pressure 168/77 H 170/82 H 163/77 H Pulse Oximetry 96 97 97 09/16/18 02:45 09/16/18 03:00 09/16/18 03:19 Temperature Pulse Rate 88 93 H 96 H Respiratory Rate 26 H 26 H 26 H Blood Pressure 156/71 H 173/86 H 149/72 H Pulse Oximetry 96 96 96 09/16/18 03:33 09/16/18 03:56 09/16/18 03:59 Temperature 98.7 F Pulse Rate 94 H 95 H 94 H Respiratory Rate 25 H 25 H 24 Blood Pressure 169/84 H 153/121 H 174/79 H Pulse Oximetry 97 97 98 09/16/18 04:00 Temperature Pulse Rate 89 Respiratory Rate 25 H Blood Pressure Pulse Oximetry 97 Intake & Output 09/15/18 09/16/18 09/16/18 18:59 06:59 18:59 Intake Total 100 / 100 1205 / 1205 Output Total 500 / 500 Balance -400 / -400 1205 / 1205 Weight 60.8 kg Intake: IV 100 / 100 1205 / 1205 NS Inj 1,000 ML @ 70 mls/hr IV. 1000 / 1000 CONT .[id number] [facility] Rx#:[id number] Ofirmev Inj 1,000 mg In 100 ml 100 / 100 100 / 100 @ 400 mls/hr IV.SIG Q6H PRN Rx# :[id number] Keppra Inj 500 MG In NS Inj 100 105 / 105 ML @ 400 mls/hr IV.SIG Q12H [facility] Rx#:[id number] Oral 0 / 0 0 / 0 Output: Urine 500 / 500 Other: # Incontinent Voids 4 Date of Last Bowel Movement 09/15/18 09/16/18 # Bowel Movements 1 3 Narrative: Stephanie is a 52-year-old female. She is in the intensive care unit. Her is at bedside General: Aphasic, difficult to arouse, appears well-developed well-nourished Head: Normocephalic Neck: Soft, nontender, trachea midline Abdomen: Soft, nondistended Patient is not following commands--motor and sensory exam is not possible at this time Examination of right arm reveals no pain or deformity with shoulder, elbow, or wrist motion. Skin is intact. Radial pulse is palpable. Normal capillary refill in fingers. No lymphadenopathy noted. Examination of left arm reveals no pain or deformity with shoulder, elbow, or wrist motion. Skin is intact. Radial pulse is palpable. Normal capillary refill in fingers. No lymphadenopathy noted. Examination of left lower extremity reveals no pain or deformity with hip, knee , or ankle motion. Skin is intact. Dorsalis pedis pulse is palpable. Normal capillary refill and feet. Thigh and calf compartments are soft. No lymphadenopathy noted. Examination of right lower extremity reveals no pain or deformity with hip or knee motion. She has swelling around her right ankle With mild deformity. Skin is intact. Dorsalis pedis pulse is palpable. Normal capillary refill and feet. Thigh and calf compartments are soft. No lymphadenopathy noted. Results - Labs Result Diagrams: 09/16/18 03:54 09/16/18 03:54 Labs: Laboratory Results - last 24 hr 09/15/18 09/15/18 09/15/18 00:40 03:30 07:19 WBC RBC Hgb Hct MCV MCH MCHC RDW Plt Count MPV Neut % (Auto) Lymph % (Auto) [place] % (Auto) Eos % (Auto) Baso % (Auto) Neut # (Auto) Lymph # (Auto) [place] # (Auto) Eos # (Auto) Baso # (Auto) WBC Differential Differential Comment Fibrinogen 240 Sodium Potassium Chloride Carbon Dioxide Anion Gap BUN Creatinine Estimated GFR POC Glucose Random Glucose Calcium Triglycerides 302 H Cholesterol 205 H LDL Cholesterol, Calc 119 H HDL Cholesterol 25.5 L Cholesterol/HDL Ratio 8.03 Nasal Screen MRSA (PCR) Not detected 09/15/18 09/15/18 09/15/18 08:04 13:22 21:24 WBC RBC Hgb Hct MCV MCH MCHC RDW Plt Count MPV Neut % (Auto) Lymph % (Auto) [place] % (Auto) Eos % (Auto) Baso % (Auto) Neut # (Auto) Lymph # (Auto) [place] # (Auto) Eos # (Auto) Baso # (Auto) WBC Differential Differential Comment Fibrinogen Sodium Potassium Chloride Carbon Dioxide Anion Gap BUN Creatinine Estimated GFR POC Glucose 282 H 172 H 281 H Random Glucose Calcium Triglycerides Cholesterol LDL Cholesterol, Calc HDL Cholesterol Cholesterol/HDL Ratio Nasal Screen MRSA (PCR) 09/15/18 09/16/18 09/16/18 23:44 03:42 03:54 WBC 9.6 RBC 4.15 Hgb 11.9 Hct 35.4 MCV 85.3 MCH 28.7 MCHC 33.6 RDW 13.6 Plt Count 187 MPV 9.5 Neut % (Auto) 75.3 H Lymph % (Auto) 16.5 [place] % (Auto) 7.0 Eos % (Auto) 0.4 Baso % (Auto) 0.8 Neut # (Auto) 7.3 Lymph # (Auto) 1.6 [place] # (Auto) 0.7 Eos # (Auto) 0.0 Baso # (Auto) 0.1 WBC Differential . Differential Comment Auto diff final Fibrinogen Sodium Potassium Chloride Carbon Dioxide Anion Gap BUN Creatinine Estimated GFR POC Glucose 159 H 234 H Random Glucose Calcium Triglycerides Cholesterol LDL Cholesterol, Calc HDL Cholesterol Cholesterol/HDL Ratio Nasal Screen MRSA (PCR) 09/16/18 03:54 WBC RBC Hgb Hct MCV MCH MCHC RDW Plt Count MPV Neut % (Auto) Lymph % (Auto) [place] % (Auto) Eos % (Auto) Baso % (Auto) Neut # (Auto) Lymph # (Auto) [place] # (Auto) Eos # (Auto) Baso # (Auto) WBC Differential Differential Comment Fibrinogen Sodium 142 Potassium 3.3 L D Chloride 108 H Carbon Dioxide 23.9 Anion Gap 10 BUN 9 Creatinine 0.49 L Estimated GFR Greater than 89 POC Glucose Random Glucose 243 H D Calcium 7.7 L Triglycerides Cholesterol LDL Cholesterol, Calc HDL Cholesterol Cholesterol/HDL Ratio Nasal Screen MRSA (PCR) - Diagnostic results Imaging: Impressions Head MRI 09/15/18 00:00 CONCLUSION: 1. Focal areas of restricted diffusion in the left frontal, left parietal and left insular lobes characteristic of acute middle cerebral artery infarcts. 2. No evidence of hemorrhage or significant edema. Head CT 09/16/18 03:00 CONCLUSION: Evolving left MCA territory hypodensities. No evidence of hemorrhage . Ankle/Foot x-ray: report reviewed, image reviewed Assessment and Plan - Assessment and Plan Stephanie had a fall resulting in right ankle trimalleolar fracture. She is also having an acute CVA. She is undergoing TPA treatment. She has a history of tobacco use and diabetes. I discussed treatment options with patient's . Patient will need open reduction internal fixation of her ankle if her mental status stabilizes. The risk and benefits of surgery were discussed. Informed consent was obtained. I will continue to follow patient's progress. The risk and benefits of surgery were discussed in depth with patient. The risk of surgery include bleeding, infection, injuries to arteries, nerves, or blood vessels, infection, wound complications, nonunion, malunion, painful hardware, and need for further surgery. I also discussed medical complications including blood clots, pneumonia, stroke, heart attack, and . Informed consent was obtained and all questions were answered. plan on surgery if/when her neurologic status stabilizes Calcium and vitamin D supplementation Physical therapy consult--nonweightbearing right leg Follow-up with Dr. Linder in 2 weeks EMILY Ponce A mid-level provider in my office (nurse practitioner or physician hotel administrative assistant) may see this patient on follow-up visits and continue to implement the objectives of this plan including: Starting or adjusting medications, injections , cast application, orthotics, brace application, physical therapy, radiological studies (including x-ray, MRI, CT, ultrasound, bone scan), vascular studies, neurologic studies, specialist consultation, and proceeding with surgical management, as appropriate.
[2018-09-16] MEDS: Senna/Docusate Sodium 8.6/50 MG Tablet PO SCH ×2 (10:44→20:43)
[2018-09-16] MEDS: Famotidine PF Inj 20 MG/2 ML Vial IV.PUSH SCH ×2 (10:45→20:42)
[2018-09-16] MEDS: Sod Chloride 0.9% Inj 1,000 ML IV.CONT SCH (10:47)
--- NOTE | 2018-09-16 12:05 | P.PN ---
Subjective Interval history: failed swallow eval. sleepy arousable restless overnight. Physical Exam Vital signs: Vital Signs 09/15/18 16:00 09/15/18 17:00 09/15/18 17:08 Temperature 98.8 F Pulse Rate 110 H 112 H 128 H Respiratory Rate 27 H 28 H 25 H Blood Pressure 176/90 H 168/75 H Pulse Oximetry 98 98 98 09/15/18 17:40 09/15/18 18:00 09/15/18 18:45 Temperature Pulse Rate 139 H 124 H 95 H Respiratory Rate 33 H 28 H 23 Blood Pressure 131/67 144/81 H Pulse Oximetry 97 97 97 09/15/18 19:00 09/15/18 19:15 09/15/18 19:30 Temperature Pulse Rate 106 H 92 H 96 H Respiratory Rate 24 25 H 26 H Blood Pressure 148/84 H 155/88 H 175/89 H Pulse Oximetry 97 98 98 09/15/18 19:45 09/15/18 20:00 09/15/18 20:15 Temperature 100.5 F H Pulse Rate 104 H 98 H 100 H Respiratory Rate 26 H 27 H 25 H Blood Pressure 156/76 H 163/82 H 173/82 H Pulse Oximetry 97 09/15/18 20:30 09/15/18 20:45 09/15/18 21:00 Temperature Pulse Rate 95 H 114 H 102 H Respiratory Rate 26 H 27 H 26 H Blood Pressure 159/77 H 187/84 H 165/90 H Pulse Oximetry 97 98 97 09/15/18 21:15 09/15/18 21:30 09/15/18 21:45 Temperature Pulse Rate 103 H 98 H 98 H Respiratory Rate 26 H 27 H 25 H Blood Pressure 160/78 H 153/76 H 155/69 H Pulse Oximetry 97 97 95 09/15/18 22:00 09/15/18 22:15 09/15/18 22:30 Temperature Pulse Rate 94 H 100 H 92 H Respiratory Rate 39 H 44 H 24 Blood Pressure 148/76 H 151/76 H 135/64 Pulse Oximetry 96 97 97 09/15/18 22:45 09/15/18 23:00 09/15/18 23:15 Temperature Pulse Rate 91 H 96 H 97 H Respiratory Rate 24 26 H 30 H Blood Pressure 142/70 H 139/63 155/67 H Pulse Oximetry 98 97 97 09/15/18 23:30 09/15/18 23:45 09/16/18 00:00 Temperature Pulse Rate 96 H 108 H 107 H Respiratory Rate 42 H 43 H 27 H Blood Pressure 160/70 H 160/74 H 154/72 H Pulse Oximetry 97 96 94 L 09/16/18 00:15 09/16/18 00:30 09/16/18 00:45 Temperature Pulse Rate 94 H 92 H 110 H Respiratory Rate 24 25 H 27 H Blood Pressure 148/66 H 158/66 H 154/67 H Pulse Oximetry 95 96 96 09/16/18 01:00 09/16/18 01:15 09/16/18 01:30 Temperature Pulse Rate 89 104 H 91 H Respiratory Rate 25 H 28 H 25 H Blood Pressure 166/74 H 163/73 H 135/65 Pulse Oximetry 96 98 97 09/16/18 01:45 09/16/18 02:00 09/16/18 02:17 Temperature Pulse Rate 91 H 89 99 H Respiratory Rate 25 H 25 H 30 H Blood Pressure 150/71 H 168/77 H 170/82 H Pulse Oximetry 96 96 97 09/16/18 02:30 09/16/18 02:45 09/16/18 03:00 Temperature Pulse Rate 87 88 93 H Respiratory Rate 25 H 26 H 26 H Blood Pressure 163/77 H 156/71 H 173/86 H Pulse Oximetry 97 96 96 09/16/18 03:19 09/16/18 03:33 09/16/18 03:56 Temperature Pulse Rate 96 H 94 H 95 H Respiratory Rate 26 H 25 H 25 H Blood Pressure 149/72 H 169/84 H 153/121 H Pulse Oximetry 96 97 97 09/16/18 03:59 09/16/18 04:00 09/16/18 08:50 Temperature 98.7 F Pulse Rate 94 H 89 Respiratory Rate 24 25 H Blood Pressure 174/79 H Pulse Oximetry 98 97 98 Intake & Output 09/15/18 09/16/18 09/16/18 18:59 06:59 18:59 Intake Total 100 / 100 1205 / 1205 1000 / 1000 Output Total 500 / 500 Balance -400 / -400 1205 / 1205 1000 / 1000 Weight 60.8 kg Intake: IV 100 / 100 1205 / 1205 1000 / 1000 NS Inj 1,000 ML @ 70 mls/hr IV. 1000 / 1000 1000 / 1000 CONT .[id number] [facility] Rx#:[id number] Ofirmev Inj 1,000 mg In 100 ml 100 / 100 100 / 100 @ 400 mls/hr IV.SIG Q6H PRN Rx# :[id number] Keppra Inj 500 MG In NS Inj 100 105 / 105 ML @ 400 mls/hr IV.SIG Q12H [facility] Rx#:[id number] Oral 0 / 0 0 / 0 Output: Urine 500 / 500 Other: # Incontinent Voids 4 Date of Last Bowel Movement 09/15/18 09/16/18 # Bowel Movements 1 3 Narrative: awakens nonverbal moves all extremities but less right leg-fx and splint on Results - Labs CBC & Chem 7: 09/16/18 03:54 09/16/18 03:54 Laboratory Results - last 24 hr 09/15/18 09/15/18 09/15/18 13:22 21:24 23:44 WBC RBC Hgb Hct MCV MCH MCHC RDW Plt Count MPV Neut % (Auto) Lymph % (Auto) [place] % (Auto) Eos % (Auto) Baso % (Auto) Neut # (Auto) Lymph # (Auto) [place] # (Auto) Eos # (Auto) Baso # (Auto) WBC Differential Differential Comment Sodium Potassium Chloride Carbon Dioxide Anion Gap BUN Creatinine Estimated GFR POC Glucose 172 H 281 H 159 H Random Glucose Calcium 09/16/18 09/16/18 09/16/18 03:42 03:54 03:54 WBC 9.6 RBC 4.15 Hgb 11.9 Hct 35.4 MCV 85.3 MCH 28.7 MCHC 33.6 RDW 13.6 Plt Count 187 MPV 9.5 Neut % (Auto) 75.3 H Lymph % (Auto) 16.5 [place] % (Auto) 7.0 Eos % (Auto) 0.4 Baso % (Auto) 0.8 Neut # (Auto) 7.3 Lymph # (Auto) 1.6 [place] # (Auto) 0.7 Eos # (Auto) 0.0 Baso # (Auto) 0.1 WBC Differential . Differential Comment Auto diff final Sodium 142 Potassium 3.3 L D Chloride 108 H Carbon Dioxide 23.9 Anion Gap 10 BUN 9 Creatinine 0.49 L Estimated GFR Greater than 89 POC Glucose 234 H Random Glucose 243 H D Calcium 7.7 L 11/05/18 08:33 WBC RBC Hgb Hct MCV MCH MCHC RDW Plt Count MPV Neut % (Auto) Lymph % (Auto) [place] % (Auto) Eos % (Auto) Baso % (Auto) Neut # (Auto) Lymph # (Auto) [place] # (Auto) Eos # (Auto) Baso # (Auto) WBC Differential Differential Comment Sodium Potassium Chloride Carbon Dioxide Anion Gap BUN Creatinine Estimated GFR POC Glucose 203 H Random Glucose Calcium - Imaging Impressions Head MRI 09/15/18 00:00 CONCLUSION: 1. Focal areas of restricted diffusion in the left frontal, left parietal and left insular lobes characteristic of acute middle cerebral artery infarcts. 2. No evidence of hemorrhage or significant edema. Head CT 09/16/18 03:00 CONCLUSION: Evolving left MCA territory hypodensities. No evidence of hemorrhage . Assessment and Plan - Plan control bp start 300 pr asa qd statin dm control scds heparin dvt prevention. f/u vascular for left ica pt-ot-st fluids hob can go up rehab consult if not done.
[2018-09-16] MEDS: Aspirin 300 MG Supp RECTAL SCH (14:24)
[2018-09-16] MEDS: hydrALAZINE HCl Inj 20 MG/ML Vial IV.PUSH PRN ×2 (14:25→17:13)
--- NOTE | 2018-09-16 14:34 | ECHRPT ---
Indication: cva CONCLUSIONS Normal left ventricular size. Wall thickness is normal. The left ventricular systolic function is normal with an estimated ejection fraction in the range of 60-65%. Mild thickening of the aortic valve leaflets. CLEMENTE 1.1 cm, mean gradient = 15 mm hg The estimated pulmonary arterial pressure is 33 mmHg. Mild thickening of the tricuspid valve leaflets. Trivial pericardial effusion. BP: / HR: Rhythm: MEASUREMENTS (Male / Female) Normal Values Technical Quality: 2D ECHO LV Diastolic Diameter PLAX 4.6 cm 4.2 - 5.9 / 3.9 - 5.3 cm LV Systolic Diameter PLAX 2.9 cm IVS Diastolic Thickness 1.0 cm 0.6 - 1.0 / 0.6 - 0.9 cm LVPW Diastolic Thickness 1.0 cm 0.6 - 1.0 / 0.6 - 0.9 cm LV Relative Wall Thickness 0.4 RV Internal Dim ED PLAX 1.8 cm LVOT Diameter 2.0 cm Aortic Root Diameter 3.2 cm LA Systolic Diameter LX 2.4 cm 3.0 - 4.0 / 2.7 - 3.8 cm LV Ejection Fraction MOD BP 62.6 % >= 55 % LV Ejection Fraction MOD 4C 59.4 % LV Ejection Fraction 4C AL 59.2 % LV Ejection Fraction MOD 2C 62.1 % LV Ejection Fraction 2C AL 63.4 % M-MODE Aortic Root Diameter MM 2.7 cm LA Systolic Diameter MM 4.4 cm LA Ao Ratio MM 1.6 AV Cusp Separation MM 1.7 cm DOPPLER AV Peak Velocity 265.5 cm/s AV Peak Gradient 28.2 mmHg AV Mean Gradient 14.5 mmHg AV Velocity Time Integral 57.9 cm LVOT Peak Velocity 94.3 cm/s LVOT Peak Gradient 3.6 mmHg LVOT Velocity Time Integral 14.4 cm AV Area Cont Eq vti 0.8 cm AV Area Cont Eq pk 1.1 cm Mitral E Point Velocity 81.9 cm/s Mitral A Point Velocity 114.0 cm/s Mitral E to A Ratio 0.7 LV E' Lateral Velocity 5.9 cm/s Mitral E to LV E' Lateral Ratio 13.8 LV E' Septal Velocity 6.9 cm/s Mitral E to LV E' Septal Ratio 11.8 TR Peak Velocity 240.0 cm/s TR Peak Gradient 23.0 mmHg Right Atrial Pressure 10.0 mmHg Pulmonary Artery Systolic Pressu 33.0 mmHg Right Ventricular Systolic Press 33.0 mmHg PV Peak Velocity 134.0 cm/s PV Peak Gradient 7.2 mmHg FINDINGS LEFT VENTRICLE Normal left ventricular size. Wall thickness is normal. The left ventricular systolic function is normal with an estimated ejection fraction in the range of 60-65%. AORTIC VALVE Mild thickening of the aortic valve leaflets. CLEMENTE 1.1 cm TRICUSPID VALVE The estimated pulmonary arterial pressure is 33 mmHg. Mild thickening of the tricuspid valve leaflets. PERICARDIUM Trivial pericardial effusion. Freeman Cordero MD, FACC, [id number] (Electronically Signed) Final Date:16 September 2018 14:32
--- NOTE | 2018-09-16 15:31 | P.PNCC ---
Subjective Subjective Remarks/Hospital Course: 52-year-old female with past medical history of diabetes, tobacco abuse who tripped over a rake in the yard and [facility]. She was diagnosed with R trimalleolar fracture and preparations were being made for transfer to [facility] for eventual operative management. While in the [place] ED, she became agitated with aphasia and R facial droop. Stroke alert was called. CT brain was negative for hemorrhage. She had no head trauma. Initial preference was to avoid systemic TPA due to the fracture. Stat CTA brain and carotids were performed and she was transferred to [facility] for possible IR thrombectomy/ intraarterial lysis. CTA demonstrates proximal L MCA occlusion. Dr. Dunlap states images were reviewed by Dr. Mora and patient was not a candidate for IR intervention due to carotid atherosclerotic disease with significant stenosis. At that point, decision was made to proceed with systemic TPA which has been administered. Patient has persistent expressive aphasia. No prior h/o stroke or TIA. No seizure. She was drinking tonight with friends before this happened, but denies daily EtOH. SUBJ 09/16 lying in bed somnolent aphasic. Weaker on the right side. Follows commands on bilateral upper and lower extremities. Family at the bedside has noted that patient had not spoken any words today. Objective Vital Signs / I&O: Vital Signs 09/15/18 16:00 09/15/18 17:00 09/15/18 17:08 Temperature 98.8 F Pulse Rate 110 H 112 H 128 H Respiratory Rate 27 H 28 H 25 H Blood Pressure 176/90 H 168/75 H Pulse Oximetry 98 98 98 09/15/18 17:40 09/15/18 18:00 09/15/18 18:45 Temperature Pulse Rate 139 H 124 H 95 H Respiratory Rate 33 H 28 H 23 Blood Pressure 131/67 144/81 H Pulse Oximetry 97 97 97 09/15/18 19:00 09/15/18 19:15 09/15/18 19:30 Temperature Pulse Rate 106 H 92 H 96 H Respiratory Rate 24 25 H 26 H Blood Pressure 148/84 H 155/88 H 175/89 H Pulse Oximetry 97 98 98 09/15/18 19:45 09/15/18 20:00 09/15/18 20:15 Temperature 100.5 F H Pulse Rate 104 H 98 H 100 H Respiratory Rate 26 H 27 H 25 H Blood Pressure 156/76 H 163/82 H 173/82 H Pulse Oximetry 97 09/15/18 20:30 09/15/18 20:45 09/15/18 21:00 Temperature Pulse Rate 95 H 114 H 102 H Respiratory Rate 26 H 27 H 26 H Blood Pressure 159/77 H 187/84 H 165/90 H Pulse Oximetry 97 98 97 09/15/18 21:15 09/15/18 21:30 09/15/18 21:45 Temperature Pulse Rate 103 H 98 H 98 H Respiratory Rate 26 H 27 H 25 H Blood Pressure 160/78 H 153/76 H 155/69 H Pulse Oximetry 97 97 95 09/15/18 22:00 09/15/18 22:15 09/15/18 22:30 Temperature Pulse Rate 94 H 100 H 92 H Respiratory Rate 39 H 44 H 24 Blood Pressure 148/76 H 151/76 H 135/64 Pulse Oximetry 96 97 97 09/15/18 22:45 09/15/18 23:00 09/15/18 23:15 Temperature Pulse Rate 91 H 96 H 97 H Respiratory Rate 24 26 H 30 H Blood Pressure 142/70 H 139/63 155/67 H Pulse Oximetry 98 97 97 09/15/18 23:30 09/15/18 23:45 09/16/18 00:00 Temperature Pulse Rate 96 H 108 H 107 H Respiratory Rate 42 H 43 H 27 H Blood Pressure 160/70 H 160/74 H 154/72 H Pulse Oximetry 97 96 94 L 09/16/18 00:15 09/16/18 00:30 09/16/18 00:45 Temperature Pulse Rate 94 H 92 H 110 H Respiratory Rate 24 25 H 27 H Blood Pressure 148/66 H 158/66 H 154/67 H Pulse Oximetry 95 96 96 09/16/18 01:00 09/16/18 01:15 09/16/18 01:30 Temperature Pulse Rate 89 104 H 91 H Respiratory Rate 25 H 28 H 25 H Blood Pressure 166/74 H 163/73 H 135/65 Pulse Oximetry 96 98 97 09/16/18 01:45 09/16/18 02:00 09/16/18 02:17 Temperature Pulse Rate 91 H 89 99 H Respiratory Rate 25 H 25 H 30 H Blood Pressure 150/71 H 168/77 H 170/82 H Pulse Oximetry 96 96 97 09/16/18 02:30 09/16/18 02:45 09/16/18 03:00 Temperature Pulse Rate 87 88 93 H Respiratory Rate 25 H 26 H 26 H Blood Pressure 163/77 H 156/71 H 173/86 H Pulse Oximetry 97 96 96 09/16/18 03:19 09/16/18 03:33 09/16/18 03:56 Temperature Pulse Rate 96 H 94 H 95 H Respiratory Rate 26 H 25 H 25 H Blood Pressure 149/72 H 169/84 H 153/121 H Pulse Oximetry 96 97 97 09/16/18 03:59 09/16/18 04:00 09/16/18 08:00 Temperature 98.7 F 98.1 F Pulse Rate 94 H 89 100 H Respiratory Rate 24 25 H 26 H Blood Pressure 174/79 H Pulse Oximetry 98 97 96 09/16/18 08:26 09/16/18 08:50 09/16/18 09:00 Temperature Pulse Rate 99 H 105 H Respiratory Rate 28 H 37 H Blood Pressure 196/81 H Pulse Oximetry 96 98 96 09/16/18 09:05 09/16/18 10:00 09/16/18 11:00 Temperature Pulse Rate 111 H 98 H 97 H Respiratory Rate 31 H 26 H 26 H Blood Pressure 179/86 H Pulse Oximetry 98 97 98 09/16/18 11:51 09/16/18 11:56 09/16/18 12:00 Temperature 98.7 F Pulse Rate 97 H 92 H 93 H Respiratory Rate 39 H 28 H 28 H Blood Pressure 185/84 H 186/81 H 176/93 H Pulse Oximetry 98 98 97 Intake & Output 09/15/18 09/16/18 09/16/18 18:59 06:59 18:59 Intake Total 100 / 100 1205 / 1205 1000 / 1000 Output Total 500 / 500 Balance -400 / -400 1205 / 1205 1000 / 1000 Weight 60.8 kg Intake: IV 100 / 100 1205 / 1205 1000 / 1000 NS Inj 1,000 ML @ 70 mls/hr IV. 1000 / 1000 1000 / 1000 CONT .[id number] JULIAN Rx#:[id number] Ofirmev Inj 1,000 mg In 100 ml 100 / 100 100 / 100 @ 400 mls/hr IV.SIG Q6H PRN Rx# :[id number] Keppra Inj 500 MG In NS Inj 100 105 / 105 ML @ 400 mls/hr IV.SIG Q12H JULIAN Rx#:[id number] Oral 0 / 0 0 / 0 Output: Urine 500 / 500 Other: # Incontinent Voids 4 Date of Last Bowel Movement 09/15/18 09/16/18 09/15/18 # Bowel Movements 1 3 Result Diagrams: 09/16/18 03:54 09/16/18 03:54 Objective Remarks: GENERAL: Well-nourished, well-developed female patient who is aphasic, more lethargic and somnolent SKIN: Warm and dry. HEAD: Atraumatic. Normocephalic. EYES: Pupils equal and round. No scleral icterus. No injection or drainage. ENT: No nasal bleeding or discharge. Mucous membranes pink and moist. NECK: Trachea midline. No JVD. CARDIOVASCULAR: Regular rate and rhythm, sinus rhythm on the monitor. No murmurs rubs or gallops. RESPIRATORY: No accessory muscle use. Clear to auscultation. Breath sounds equal bilaterally. On room air GASTROINTESTINAL: Abdomen soft, non-tender, nondistended. MUSCULOSKELETAL: Extremities without clubbing, cyanosis. Posterior splint in place RLE, knee immobilizer in place. Normal cap refill. NEUROLOGICAL: Awake and alert, but somnolent. Tongue deviates to right. Right lower facial droop. No pronator drift. Strength 4/5 RUE and sensation intact. 5/ 5 hip flexor bilaterally, 5/5 L plantar and dorsiflexion. Assessment and Plan - Problem List (1) Acute ischemic left MCA stroke Code(s): I63.512 - Cerebral infarction due to unspecified occlusion or stenosis of left middle cerebral artery Status: Acute (2) Tobacco abuse Code(s): Z72.0 - Tobacco use Status: Chronic (3) Aphasia due to acute stroke Code(s): I63.9 - Cerebral infarction, unspecified; R47.01 - Aphasia Status: Acute (4) Fall Code(s): W19.XXXA - Unspecified fall, initial encounter Status: Acute (5) Closed trimalleolar fracture of ankle Code(s): S82.853A - Displaced trimalleolar fracture of unspecified lower leg, initial encounter for closed fracture Status: Acute (6) Diabetes mellitus Code(s): E11.9 - Type 2 diabetes mellitus without complications Status: Chronic (7) HLD (hyperlipidemia) Code(s): E78.5 - Hyperlipidemia, unspecified Status: Chronic - Assessment and Plan Plan: NEURO: Acute ischemic left MCA stroke Bilateral carotid stenosis s/p TPA 02:16 on 09/15. No antiplatelets or anticoagulants for 24 hours post TPA. Started on antiplatelet therapy. F/u CT brain 24 hours post-TPA. -Evolving left MCA infarct Neurochecks and BP monitoring in ISC. Maintain SBP <180/100 due to TPA, avoid hypotension with carotid disease. 2D Echo, fasting lipid, hgbA1c, telemetry monitoring (currently sinus rhythm) Neurology consult. Vascular surgery consult CTA neck High-grade stenosis at the origin of the right common carotid artery and moderately severe stenosis at the origin of the left common carotid artery. 50-60% carotid bifurcation stenosis also present bilaterally. Right bifurcation is in the thorax per vascular surgery. When more stable consult IR. Vascular surgery Dr. Jack recommends anticoagulation in 24 hours if cleared by neurosurgery RESP: Tobacco abuse Tobacco cessation counseling discussed. On room air. CV: HTN Labetalol/hydralazine/cardene prn SBP <180/100 for first 24 hours post TPA. HLD pravastatin 40 mg daily when PO permitted GI: NPO. Speech therapy to evaluate swallow and speech FEN/RENAL: Normal creatinine. Voiding. Replace electrolytes as indicated ID: Monitor for signs and symptoms of infection HEME: Monitor CBC ENDO: Diabetes mellitus, with acute hyperglycemia Hold oral anti-hypoglycemics including metformin Monitor bedside glucose q4 and initiate low dose sliding scale MSK: Trimalleolar ankle fracture Neurovascular checks, maintain splint and knee immobilizer. Eventual operative management when stabilized from standpoint of stroke. PROPH: SCD for DVT prophylaxis. No pharmacologic DVT prophylaxis for 24 hours post TPA. Famotidine 20 mill grams IV every 12 hours for stress ulcer prophylaxis. ACCESS: Peripheral IV. No central or arterial sticks for [address] Thomson discussed with Dr. Win and Dr. Dunlap. Patient and her updated at bedside. Discussed with Dr. Dempsey; eventual operative repair when stabilized from standpoint of stroke. He states operative repair can wait up to 1- 1.5 week,, also needs to allow swelling to ease. Timing of operative repair will be determined based on stroke clinical course. Dr. Kumar assuming ortho care Sunday. Level 3 Remains critical with chance of acute deterioration. Continue ICU care (5) Closed trimalleolar fracture of ankle Qualifiers: Encounter type: initial encounter Laterality: right Qualified Code(s): S82.851A - Displaced trimalleolar fracture of right lower leg, initial encounter for closed fracture (6) Diabetes mellitus Qualifiers: Diabetes mellitus type: type 2 Diabetes mellitus skilled nursing insulin use: without waste handling technician use Diabetes mellitus complication status: with neurologic complications (7) HLD (hyperlipidemia) Qualifiers: Hyperlipidemia type: mixed hyperlipidemia Qualified Code(s): E78.2 - Mixed hyperlipidemia
--- NOTE | 2018-09-16 17:15 | P.PNVS ---
Subjective Subjective/Hospital Course: Complaint of aphasia, dysphagia Objective Vital Signs / I&O: Vital Signs 09/15/18 17:40 09/15/18 18:00 09/15/18 18:45 Temperature Pulse Rate 139 H 124 H 95 H Respiratory Rate 33 H 28 H 23 Blood Pressure 131/67 144/81 H Pulse Oximetry 97 97 97 09/15/18 19:00 09/15/18 19:15 09/15/18 19:30 Temperature Pulse Rate 106 H 92 H 96 H Respiratory Rate 24 25 H 26 H Blood Pressure 148/84 H 155/88 H 175/89 H Pulse Oximetry 97 98 98 09/15/18 19:45 09/15/18 20:00 09/15/18 20:15 Temperature 100.5 F H Pulse Rate 104 H 98 H 100 H Respiratory Rate 26 H 27 H 25 H Blood Pressure 156/76 H 163/82 H 173/82 H Pulse Oximetry 97 09/15/18 20:30 09/15/18 20:45 09/15/18 21:00 Temperature Pulse Rate 95 H 114 H 102 H Respiratory Rate 26 H 27 H 26 H Blood Pressure 159/77 H 187/84 H 165/90 H Pulse Oximetry 97 98 97 09/15/18 21:15 09/15/18 21:30 09/15/18 21:45 Temperature Pulse Rate 103 H 98 H 98 H Respiratory Rate 26 H 27 H 25 H Blood Pressure 160/78 H 153/76 H 155/69 H Pulse Oximetry 97 97 95 09/15/18 22:00 09/15/18 22:15 09/15/18 22:30 Temperature Pulse Rate 94 H 100 H 92 H Respiratory Rate 39 H 44 H 24 Blood Pressure 148/76 H 151/76 H 135/64 Pulse Oximetry 96 97 97 09/15/18 22:45 09/15/18 23:00 09/15/18 23:15 Temperature Pulse Rate 91 H 96 H 97 H Respiratory Rate 24 26 H 30 H Blood Pressure 142/70 H 139/63 155/67 H Pulse Oximetry 98 97 97 09/15/18 23:30 09/15/18 23:45 09/16/18 00:00 Temperature Pulse Rate 96 H 108 H 107 H Respiratory Rate 42 H 43 H 27 H Blood Pressure 160/70 H 160/74 H 154/72 H Pulse Oximetry 97 96 94 L 09/16/18 00:15 09/16/18 00:30 09/16/18 00:45 Temperature Pulse Rate 94 H 92 H 110 H Respiratory Rate 24 25 H 27 H Blood Pressure 148/66 H 158/66 H 154/67 H Pulse Oximetry 95 96 96 09/16/18 01:00 09/16/18 01:15 09/16/18 01:30 Temperature Pulse Rate 89 104 H 91 H Respiratory Rate 25 H 28 H 25 H Blood Pressure 166/74 H 163/73 H 135/65 Pulse Oximetry 96 98 97 09/16/18 01:45 09/16/18 02:00 09/16/18 02:17 Temperature Pulse Rate 91 H 89 99 H Respiratory Rate 25 H 25 H 30 H Blood Pressure 150/71 H 168/77 H 170/82 H Pulse Oximetry 96 96 97 09/16/18 02:30 09/16/18 02:45 09/16/18 03:00 Temperature Pulse Rate 87 88 93 H Respiratory Rate 25 H 26 H 26 H Blood Pressure 163/77 H 156/71 H 173/86 H Pulse Oximetry 97 96 96 09/16/18 03:19 09/16/18 03:33 09/16/18 03:56 Temperature Pulse Rate 96 H 94 H 95 H Respiratory Rate 26 H 25 H 25 H Blood Pressure 149/72 H 169/84 H 153/121 H Pulse Oximetry 96 97 97 09/16/18 03:59 09/16/18 04:00 09/16/18 08:00 Temperature 98.7 F 98.1 F Pulse Rate 94 H 89 100 H Respiratory Rate 24 25 H 26 H Blood Pressure 174/79 H Pulse Oximetry 98 97 96 09/16/18 08:26 09/16/18 08:50 09/16/18 09:00 Temperature Pulse Rate 99 H 105 H Respiratory Rate 28 H 37 H Blood Pressure 196/81 H Pulse Oximetry 96 98 96 09/16/18 09:05 09/16/18 10:00 09/16/18 11:00 Temperature Pulse Rate 111 H 98 H 97 H Respiratory Rate 31 H 26 H 26 H Blood Pressure 179/86 H Pulse Oximetry 98 97 98 09/16/18 11:51 09/16/18 11:56 09/16/18 12:00 Temperature 98.7 F Pulse Rate 97 H 92 H 93 H Respiratory Rate 39 H 28 H 28 H Blood Pressure 185/84 H 186/81 H 176/93 H Pulse Oximetry 98 98 97 09/16/18 13:00 09/16/18 13:30 09/16/18 13:33 Temperature Pulse Rate 91 H 94 H 96 H Respiratory Rate 27 H 25 H 29 H Blood Pressure 177/88 H 198/88 H 200/87 H Pulse Oximetry 98 98 97 09/16/18 13:40 09/16/18 14:00 09/16/18 14:30 Temperature Pulse Rate 90 100 H 123 H Respiratory Rate 27 H 25 H 39 H Blood Pressure 188/92 H 180/84 H 156/70 H Pulse Oximetry 97 97 98 09/16/18 15:00 09/16/18 15:30 09/16/18 16:00 Temperature 99.2 F Pulse Rate 108 H 108 H 105 H Respiratory Rate 24 29 H 27 H Blood Pressure 157/73 H 146/69 H 180/83 H Pulse Oximetry 98 98 98 Intake & Output 09/15/18 09/16/18 09/16/18 18:59 06:59 18:59 Intake Total 100 / 100 1205 / 1205 1000 / 1000 Output Total 500 / 500 Balance -400 / -400 1205 / 1205 1000 / 1000 Weight 60.8 kg Intake: IV 100 / 100 1205 / 1205 1000 / 1000 NS Inj 1,000 ML @ 70 mls/hr IV. 1000 / 1000 1000 / 1000 CONT .[id number] JULIAN Rx#:[id number] Ofirmev Inj 1,000 mg In 100 ml 100 / 100 100 / 100 @ 400 mls/hr IV.SIG Q6H PRN Rx# :[id number] Keppra Inj 500 MG In NS Inj 100 105 / 105 ML @ 400 mls/hr IV.SIG Q12H JULIAN Rx#:[id number] Oral 0 / 0 0 / 0 Output: Urine 500 / 500 Other: # Incontinent Voids 4 Date of Last Bowel Movement 09/15/18 09/16/18 09/15/18 # Bowel Movements 1 3 Physical Exam: No new neurological deficits identified and physical exam. Laboratory Results - last 24 hr 09/15/18 09/15/18 09/16/18 21:24 23:44 03:42 WBC RBC Hgb Hct MCV MCH MCHC RDW Plt Count MPV Neut % (Auto) Lymph % (Auto) [place] % (Auto) Eos % (Auto) Baso % (Auto) Neut # (Auto) Lymph # (Auto) [place] # (Auto) Eos # (Auto) Baso # (Auto) WBC Differential Differential Comment Sodium Potassium Chloride Carbon Dioxide Anion Gap BUN Creatinine Estimated GFR POC Glucose 281 H 159 H 234 H Random Glucose Calcium 09/16/18 09/16/18 09/16/18 03:54 03:54 08:33 WBC 9.6 RBC 4.15 Hgb 11.9 Hct 35.4 MCV 85.3 MCH 28.7 MCHC 33.6 RDW 13.6 Plt Count 187 MPV 9.5 Neut % (Auto) 75.3 H Lymph % (Auto) 16.5 [place] % (Auto) 7.0 Eos % (Auto) 0.4 Baso % (Auto) 0.8 Neut # (Auto) 7.3 Lymph # (Auto) 1.6 [place] # (Auto) 0.7 Eos # (Auto) 0.0 Baso # (Auto) 0.1 WBC Differential . Differential Comment Auto diff final Sodium 142 Potassium 3.3 L D Chloride 108 H Carbon Dioxide 23.9 Anion Gap 10 BUN 9 Creatinine 0.49 L Estimated GFR Greater than 89 POC Glucose 203 H Random Glucose 243 H D Calcium 7.7 L 09/16/18 16:32 WBC RBC Hgb Hct MCV MCH MCHC RDW Plt Count MPV Neut % (Auto) Lymph % (Auto) [place] % (Auto) Eos % (Auto) Baso % (Auto) Neut # (Auto) Lymph # (Auto) [place] # (Auto) Eos # (Auto) Baso # (Auto) WBC Differential Differential Comment Sodium Potassium Chloride Carbon Dioxide Anion Gap BUN Creatinine Estimated GFR POC Glucose 189 H Random Glucose Calcium Impressions Head MRI 09/15/18 00:00 CONCLUSION: 1. Focal areas of restricted diffusion in the left frontal, left parietal and left insular lobes characteristic of acute middle cerebral artery infarcts. 2. No evidence of hemorrhage or significant edema. Head CT 09/16/18 03:00 CONCLUSION: Evolving left MCA territory hypodensities. No evidence of hemorrhage . Assessment and Plan - Plan #1 acute left hemispheric stroke with occlusion of the left MCA. I believe that the left carotid lesion is best treated with carotid artery stenting. The location of the lesion and the very low bifurcation of the carotid artery will make carotid artery endarterectomy difficult requiring a sternotomy. Short-term treatment with anticoagulation may be beneficial to help resolve the adherent thrombus and decrease the risk of perioperative stroke. A consult to neuro intervention will be obtained. I had a discussion with Dr. Chow and he agreed to the plan. 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 Patient is currently asymptomatic with no evidence of dysphagia lusoria Continue with conservative management.
[2018-09-16 17:39] LABS: Hemoglobin A1c 8.7 % (4.3-6.0)
[2018-09-17] MEDS: Sod Chloride 0.9% Inj 1,000 ML IV.CONT SCH ×2 (00:04→13:23)
[2018-09-17] MEDS: Insulin NovoLOG Aspart Correctional Sugar Inj SQ SCH ×6 (02:07→21:29)
[2018-09-17] MEDS: Chlorhexidine Gluconate 2% 1 Pack (2 Cloths) TOPICAL SCH (04:17)
[2018-09-17] MEDS ORDERED: Morphine Sulfate Inj 2 MG/ML Vial ONE (08:26)
--- NOTE | 2018-09-17 08:56 | P.PNOP ---
Subjective Interval history: Resting comfortably with short leg splint in place Physical Exam Vital signs: Vital Signs 09/16/18 09:00 09/16/18 09:05 09/16/18 10:00 Temperature Pulse Rate 105 H 111 H 98 H Respiratory Rate 37 H 31 H 26 H Blood Pressure 179/86 H Pulse Oximetry 96 98 97 09/16/18 11:00 09/16/18 11:51 09/16/18 11:56 Temperature Pulse Rate 97 H 97 H 92 H Respiratory Rate 26 H 39 H 28 H Blood Pressure 185/84 H 186/81 H Pulse Oximetry 98 98 98 09/16/18 12:00 09/16/18 13:00 09/16/18 13:30 Temperature 98.7 F Pulse Rate 93 H 91 H 94 H Respiratory Rate 28 H 27 H 25 H Blood Pressure 176/93 H 177/88 H 198/88 H Pulse Oximetry 97 98 98 09/16/18 13:33 09/16/18 13:40 09/16/18 14:00 Temperature Pulse Rate 96 H 90 100 H Respiratory Rate 29 H 27 H 25 H Blood Pressure 200/87 H 188/92 H 180/84 H Pulse Oximetry 97 97 97 09/16/18 14:30 09/16/18 15:00 09/16/18 15:30 Temperature Pulse Rate 123 H 108 H 108 H Respiratory Rate 39 H 24 29 H Blood Pressure 156/70 H 157/73 H 146/69 H Pulse Oximetry 98 98 98 09/16/18 16:00 09/16/18 18:49 09/16/18 20:00 Temperature 99.2 F 98.6 F Pulse Rate 105 H 94 H Respiratory Rate 27 H 27 H 27 H Blood Pressure 180/83 H 191/88 H Pulse Oximetry 98 96 09/16/18 20:34 09/17/18 00:00 09/17/18 04:00 Temperature 98.1 F 98.2 F Pulse Rate 92 H 93 H Respiratory Rate 21 26 H Blood Pressure 172/74 H 171/77 H Pulse Oximetry 98 99 97 09/17/18 08:29 Temperature Pulse Rate Respiratory Rate Blood Pressure Pulse Oximetry 97 Intake & Output 09/16/18 09/17/18 09/17/18 18:59 06:59 18:59 Intake Total 1555 / 1555 1105 / 1105 Output Total 1350 / 1350 850 / 850 Balance 205 / 205 255 / 255 Weight 58.5 kg Intake: IV 1555 / 1555 1105 / 1105 Neosynephrine Inj 40 MG In NS 250 / 250 Inj 496 ML @ 40 MCG/MIN 30 mls/ hr IV.CONT TITRATE PRN Rx#: [id number] NS Inj 1,000 ML @ 70 mls/hr IV. 1000 / 1000 1000 / 1000 CONT .[id number] JULIAN Rx#:[id number] Ofirmev Inj 1,000 mg In 100 ml 200 / 200 @ 400 mls/hr IV.SIG Q6H PRN Rx# :[id number] Keppra Inj 500 MG In NS Inj 100 105 / 105 105 / 105 ML @ 400 mls/hr IV.SIG Q12H JULIAN Rx#:[id number] Oral 0 / 0 Output: Urine 100 / 100 Urine Amount (Catheter) 1250 / 1250 850 / 850 Indwelling Urethral Catheter 1250 / 1250 850 / 850 Other: # Incontinent Voids 7 # Urine Diapers 1 Date of Last Bowel Movement 09/15/18 09/15/18 Narrative: Left lower extremity: Knee immobilizer and splint removed. Fracture blister noted over medial ankle and some skin discoloration over the dorsum of the foot. No lacerations or abrasions noted. Intact distal pulses - Urinary Catheter Management Indwelling Urethral Catheter Cath placed during this visit: yes Reason for continuing: Acute urinary retention Insertion date: 09/16/18 Insertion time: 18:30 Results - Labs CBC & Chem 7: 09/16/18 03:54 09/16/18 03:54 Laboratory Results - last 24 hr 09/16/18 09/16/18 09/16/18 03:54 16:32 20:49 POC Glucose 189 H 214 H Hemoglobin A1c 8.7 H 09/17/18 09/17/18 02:07 04:27 POC Glucose 186 H 171 H Hemoglobin A1c Assessment and Plan - Assessment and Plan Right trimalleolar ankle fracture Resplinted and well-padded posterior and stirrup splint. Knee immobilizer removed. Intact distal pulses and capillary refills noted. X-ray today for post reduction of right ankle When medically cleared surgery will be performed for external fixation versus open reduction internal fixation of the ankle. Surgery may be limited due to fracture blister. We will continue to assess when medically cleared Nonweightbearing and maintain right ankle splint
[2018-09-17] MEDS: Senna/Docusate Sodium 8.6/50 MG Tablet PO SCH ×2 (08:57→21:14)
[2018-09-17] MEDS: Aspirin 300 MG Supp RECTAL SCH (09:18)
[2018-09-17] MEDS: Famotidine PF Inj 20 MG/2 ML Vial IV.PUSH SCH ×2 (09:18→21:14)
[2018-09-17] MEDS ORDERED: Morphine Sulfate Inj 2 MG/ML Vial IV.PUSH ONE (09:45)
--- NOTE | 2018-09-17 10:18 | XR ---
EXAM DATE: 09/17/2018 10:11 AM EST AGE/SEX: 52 years / Female INDICATIONS: Post Reduction right ankle fracture dislocation. CLINICAL DATA: This is the patient's subsequent encounter. Patient reports that signs and symptoms h ave been present for 1 week and indicates a pain score of Nonresponsive. MEDICAL/SURGICAL HISTORY: . Patient had a stroke while in the hospital. None. COMPARISON: [facility], ANKLE COMPLETE RIGHT MIN 3V, 09/14/2018. . FINDINGS: Multiple views of the ankle were obtained and demonstrate overlying artifact from casting material. A gain noted is a trimalleolar fracture. The fracture fragments are in stable alignment compared to the prior study. It is abnormal widening of the medial ankle mortise with posterior dislocation of the t alar dome with relation to the tibial plateau which appears unchanged on the lateral exam. The talus and calcaneus appear intact. The fibular fracture is stable in appearance. There is overlying soft ti ssue swelling. CONCLUSION: No significant change in alignment of the trimalleolar fracture dislocation. Electronically signed by: Everardo Varghese MD 09/17/2018 10:16 AM EST
--- NOTE | 2018-09-17 10:23 | P.PNCC ---
Subjective Subjective Remarks/Hospital Course: 52-year-old female with past medical history of diabetes, tobacco abuse who tripped over a rake in the yard and presented to [facility] with right ankle pain. She was diagnosed with R trimalleolar fracture and preparations were being made for transfer to [facility] for eventual operative management. While in the [place] ED, she became agitated with aphasia and R facial droop. Stroke alert was called. CT brain was negative for hemorrhage. She had no head trauma. Initial preference was to avoid systemic TPA due to the fracture. Stat CTA brain and carotids were performed and she was transferred to [facility] for possible IR thrombectomy/ intraarterial lysis. CTA demonstrates proximal L MCA occlusion. Dr. Dunlap states images were reviewed by Dr. Mora and patient was not a candidate for IR intervention due to carotid atherosclerotic disease with significant stenosis. At that point, decision was made to proceed with systemic TPA which has been administered. Patient has persistent expressive aphasia. No prior h/o stroke or TIA. No seizure. She was drinking tonight with friends before this happened, but denies daily EtOH. SUBJ 09/16 lying in bed somnolent aphasic. Weaker on the right side. Follows commands on bilateral upper and lower extremities. Family at the bedside has noted that patient had not spoken any words today. 09/17: Patient is more awake today following commands still aphasic. Discussed with vascular surgery yesterday. Recommends left carotid stenting by IR due to intrathoracic carotid bifurcation. Patient not cleared by neurologist for IV heparin due to risk of hemorrhagic conversion Objective Vital Signs / I&O: Vital Signs 09/16/18 11:00 09/16/18 11:51 09/16/18 11:56 Temperature Pulse Rate 97 H 97 H 92 H Respiratory Rate 26 H 39 H 28 H Blood Pressure 185/84 H 186/81 H Pulse Oximetry 98 98 98 09/16/18 12:00 09/16/18 13:00 09/16/18 13:30 Temperature 98.7 F Pulse Rate 93 H 91 H 94 H Respiratory Rate 28 H 27 H 25 H Blood Pressure 176/93 H 177/88 H 198/88 H Pulse Oximetry 97 98 98 09/16/18 13:33 09/16/18 13:40 09/16/18 14:00 Temperature Pulse Rate 96 H 90 100 H Respiratory Rate 29 H 27 H 25 H Blood Pressure 200/87 H 188/92 H 180/84 H Pulse Oximetry 97 97 97 09/16/18 14:30 09/16/18 15:00 09/16/18 15:30 Temperature Pulse Rate 123 H 108 H 108 H Respiratory Rate 39 H 24 29 H Blood Pressure 156/70 H 157/73 H 146/69 H Pulse Oximetry 98 98 98 09/16/18 16:00 09/16/18 18:49 09/16/18 20:00 Temperature 99.2 F 98.6 F Pulse Rate 105 H 94 H Respiratory Rate 27 H 27 H 27 H Blood Pressure 180/83 H 191/88 H Pulse Oximetry 98 96 09/16/18 20:34 09/17/18 00:00 09/17/18 04:00 Temperature 98.1 F 98.2 F Pulse Rate 92 H 93 H Respiratory Rate 21 26 H Blood Pressure 172/74 H 171/77 H Pulse Oximetry 98 99 97 09/17/18 08:29 Temperature Pulse Rate Respiratory Rate Blood Pressure Pulse Oximetry 97 Intake & Output 09/16/18 09/17/18 09/17/18 18:59 06:59 18:59 Intake Total 1555 / 1555 1105 / 1105 Output Total 1350 / 1350 850 / 850 Balance 205 / 205 255 / 255 Weight 58.5 kg Intake: IV 1555 / 1555 1105 / 1105 Neosynephrine Inj 40 MG In NS 250 / 250 Inj 496 ML @ 40 MCG/MIN 30 mls/ hr IV.CONT TITRATE PRN Rx#: [id number] NS Inj 1,000 ML @ 70 mls/hr IV. 1000 / 1000 1000 / 1000 CONT .[id number] [facility] Rx#:[id number] Ofirmev Inj 1,000 mg In 100 ml 200 / 200 @ 400 mls/hr IV.SIG Q6H PRN Rx# :[id number] Keppra Inj 500 MG In NS Inj 100 105 / 105 105 / 105 ML @ 400 mls/hr IV.SIG Q12H [facility] Rx#:[id number] Oral 0 / 0 Output: Urine 100 / 100 Urine Amount (Catheter) 1250 / 1250 850 / 850 Indwelling Urethral Catheter 1250 / 1250 850 / 850 Other: # Incontinent Voids 7 # Urine Diapers 1 Date of Last Bowel Movement 09/15/18 09/15/18 Result Diagrams: 09/16/18 03:54 09/16/18 03:54 Objective Remarks: GENERAL: Well-nourished, well-developed female patient who is aphasic, but alert awake SKIN: Warm and dry. HEAD: Atraumatic. Normocephalic. EYES: Pupils equal and round. No scleral icterus. No injection or drainage. ENT: No nasal bleeding or discharge. Mucous membranes pink and moist. NECK: Trachea midline. No JVD. CARDIOVASCULAR: Regular rate and rhythm, sinus rhythm on the monitor. No murmurs rubs or gallops. RESPIRATORY: No accessory muscle use. Clear to auscultation. Breath sounds equal bilaterally. On room air GASTROINTESTINAL: Abdomen soft, non-tender, nondistended. MUSCULOSKELETAL: Extremities without clubbing, cyanosis. Posterior splint in place RLE, knee immobilizer in place. Normal cap refill. NEUROLOGICAL: Awake and alert, remains aphasic. No pronator drift. Strength 4/5 RUE and sensation intact. 5/5 hip flexor bilaterally, 5/5 L plantar and dorsiflexion. Assessment and Plan - Problem List (1) Acute ischemic left MCA stroke Code(s): I63.512 - Cerebral infarction due to unspecified occlusion or stenosis of left middle cerebral artery Status: Acute (2) Tobacco abuse Code(s): Z72.0 - Tobacco use Status: Chronic (3) Aphasia due to acute stroke Code(s): I63.9 - Cerebral infarction, unspecified; R47.01 - Aphasia Status: Acute (4) Fall Code(s): W19.XXXA - Unspecified fall, initial encounter Status: Acute (5) Closed trimalleolar fracture of ankle Code(s): S82.853A - Displaced trimalleolar fracture of unspecified lower leg, initial encounter for closed fracture Status: Acute (6) Diabetes mellitus Code(s): E11.9 - Type 2 diabetes mellitus without complications Status: Chronic (7) HLD (hyperlipidemia) Code(s): E78.5 - Hyperlipidemia, unspecified Status: Chronic - Assessment and Plan Plan: NEURO: Acute ischemic left MCA stroke Bilateral carotid stenosis s/p TPA 02:16 on 09/15. No antiplatelets or anticoagulants for 24 hours post TPA. Started on ASA therapy. F/u CT brain 24 hours post-TPA. -Evolving left MCA infarct Neurochecks and BP monitoring in ISC. Maintain SBP <180/100 due to TPA, avoid hypotension with carotid disease. 2D Echo, fasting lipid, hgbA1c, telemetry monitoring (currently sinus rhythm) Neurology Dr. Arriaga. Not cleared for full anticoagulation Vascular surgery consult CTA neck High-grade stenosis at the origin of the right common carotid artery and moderately severe stenosis at the origin of the left common carotid artery. 50-60% carotid bifurcation stenosis also present bilaterally. Consult IR for Left carotid stenting. Vascular surgery Dr. Jack recommends anticoagulation in 24 hours if cleared by neurosurgery RESP: Tobacco abuse Tobacco cessation counseling discussed. On room air. CV: HTN Labetalol/hydralazine/cardene prn SBP <180/100 for first 24 hours post TPA. HLD pravastatin 40 mg daily when PO permitted GI: NPO until cleared by speech. Speech therapy to evaluate swallow and speech FEN/RENAL: Normal creatinine. Voiding. Replace electrolytes as indicated ID: Monitor for signs and symptoms of infection HEME: Monitor CBC ENDO: Diabetes mellitus, with acute hyperglycemia Hold oral anti-hypoglycemics including metformin Monitor bedside glucose q4 and low dose sliding scale MSK: Trimalleolar ankle fracture Neurovascular checks, maintain splint and knee immobilizer. Eventual operative management when stabilized from standpoint of stroke. PROPH: SCD for DVT prophylaxis. No pharmacologic DVT prophylaxis for 24 hours post TPA , start sq heparin today. Famotidine 20 mill grams IV every 12 hours for stress ulcer prophylaxis. ACCESS: Peripheral IV. No central or arterial sticks for [address] Thomson discussed with Dr. Win and Dr. Dunlap. Patient and her updated at bedside. Discussed with Dr. Dempsey; eventual operative repair when stabilized from standpoint of stroke. He states operative repair can wait up to 1- 1.5 week,, also needs to allow swelling to ease. Timing of operative repair will be determined based on stroke clinical course. Dr. Kumar assuming ortho care Sunday. 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
[2018-09-17] MEDS: Heparin - SQ 10,000 UNITS/ML Vial SQ SCH ×2 (13:21→21:14)
--- NOTE | 2018-09-17 16:32 | P.PN ---
Subjective Interval history: was more alert today now sleeping on her right side had manipulation right ankle and given morphine Physical Exam Vital signs: Vital Signs 09/16/18 18:49 09/16/18 20:00 09/16/18 20:34 Temperature 98.6 F Pulse Rate 94 H Respiratory Rate 27 H 27 H Blood Pressure 191/88 H Pulse Oximetry 96 98 09/17/18 00:00 09/17/18 04:00 09/17/18 08:29 Temperature 98.1 F 98.2 F Pulse Rate 92 H 93 H Respiratory Rate 21 26 H Blood Pressure 172/74 H 171/77 H Pulse Oximetry 99 97 97 Intake & Output 09/16/18 09/17/18 09/17/18 18:59 06:59 18:59 Intake Total 1555 / 1555 1105 / 1105 1000 / 1000 Output Total 1350 / 1350 850 / 850 Balance 205 / 205 255 / 255 1000 / 1000 Weight 58.5 kg Intake: IV 1555 / 1555 1105 / 1105 1000 / 1000 Neosynephrine Inj 40 MG In NS 250 / 250 Inj 496 ML @ 40 MCG/MIN 30 mls/ hr IV.CONT TITRATE PRN Rx#: [id number] NS Inj 1,000 ML @ 70 mls/hr IV. 1000 / 1000 1000 / 1000 1000 / 1000 CONT .[id number] [facility] Rx#:[id number] Ofirmev Inj 1,000 mg In 100 ml 200 / 200 @ 400 mls/hr IV.SIG Q6H PRN Rx# :[id number] Keppra Inj 500 MG In NS Inj 100 105 / 105 105 / 105 ML @ 400 mls/hr IV.SIG Q12H [facility] Rx#:[id number] Oral 0 / 0 Output: Urine 100 / 100 Urine Amount (Catheter) 1250 / 1250 850 / 850 Indwelling Urethral Catheter 1250 / 1250 850 / 850 Other: # Incontinent Voids 7 # Urine Diapers 1 Date of Last Bowel Movement 09/15/18 09/15/18 - Routine HEENT Exam Head: Present: normocephalic Eye: Present: EOMI - Routine Neurological Exam Present: moving all extremities - Detailed Neurological Exam: Coma Scale Eye Opening: To sound Motor Response: Obey commands - Urinary Catheter Management Indwelling Urethral Catheter Cath placed during this visit: yes Reason for continuing: Acute urinary retention Insertion date: 09/16/18 Insertion time: 18:30 Results - Labs CBC & Chem 7: 09/16/18 03:54 09/16/18 03:54 Laboratory Results - last 24 hr 09/16/18 09/16/18 09/16/18 03:54 16:32 20:49 POC Glucose 189 H 214 H Hemoglobin A1c 8.7 H 09/17/18 09/17/18 09/17/18 02:07 04:27 09:06 POC Glucose 186 H 171 H 198 H Hemoglobin A1c 09/17/18 12:50 POC Glucose 182 H Hemoglobin A1c - Imaging Impressions Ankle X-Ray 09/17/18 00:00 CONCLUSION: No significant change in alignment of the trimalleolar fracture dislocation. Assessment and Plan - Plan ok sq heparin start heprain drip in am with strict monitoring stent as per vascular vs neuroradiology would hold of ankle surgery for at least a week due to possible drop in bp and anesthesia. repeat swallow evaluation in am.PT-OT-ST.
[2018-09-17] MEDS ORDERED: Potassium Chlor 40 mEq Premix 40 MEQ/100 ML PIGGYBACK IV.SIG PRN ×2 (19:35)
[2018-09-17] MEDS ORDERED: Magnesium Sulfate Inj 4 GM in Sodium Chlor 0.9% Inj 92 ML IV.SIG PRN (19:35)
[2018-09-17] MEDS ORDERED: Sodium Phosphate Inj 30 MMOL in Sodium Chlor 0.9% Inj 250 ML IV.SIG PRN (19:35)
[2018-09-17] MEDS ORDERED: Magnesium Oxide 400 MG Tablet PO PRN (19:35)
[2018-09-17] MEDS ORDERED: Potassium Phosphate 500 MG Soluble Tablet PO PRN ×2 (19:35)
[2018-09-17] MEDS ORDERED: Potassium Chloride 25 MEQ Effervescent Tablet PO PRN (19:35)
[2018-09-17] MEDS ORDERED: Magnesium Sulfate Inj 2 GM in Sodium Chlor 0.9% Inj 96 ML IV.SIG PRN (19:35)
[2018-09-17] MEDS ORDERED: Potassium Phosphate Inj 30 MMOL in Sodium Chlor 0.9% Inj 250 ML IV.SIG PRN (19:35)
[2018-09-18] MEDS: Chlorhexidine Gluconate 2% 1 Pack (2 Cloths) TOPICAL SCH (05:12)
[2018-09-18] MEDS: Heparin - SQ 10,000 UNITS/ML Vial SQ SCH ×3 (05:14→21:22)
[2018-09-18] MEDS: Insulin NovoLOG Aspart Correctional Sugar Inj SQ SCH ×6 (06:03→21:20)
[2018-09-18] MEDS: Sod Chloride 0.9% Inj 1,000 ML IV.CONT SCH ×3 (06:08→17:51)
[2018-09-18] MEDS: Senna/Docusate Sodium 8.6/50 MG Tablet PO SCH ×2 (08:56→21:22)
[2018-09-18] MEDS: Famotidine PF Inj 20 MG/2 ML Vial IV.PUSH SCH ×2 (09:37→21:21)
[2018-09-18] MEDS: Aspirin 300 MG Supp RECTAL SCH (09:37)
[2018-09-18 10:26] LABS: Baso % (Auto) 0.6 % (0.0-2.0); Eos # (Auto) 0.1 th/mm3 (0.0-0.4); Eos % (Auto) 1.1 % (0.0-4.0); Hematocrit 34.6 % (35.0-46.0); Hemoglobin 11.4 gm/dL (11.6-15.3); Lymph # (Auto) 1.3 th/mm3 (1.0-4.8); Lymph % (Auto) 17.6 % (9.0-44.0); Mean Corpuscular Hemoglobin 28.8 pg (27.0-34.0); Mean Corpuscular Volume 87.4 fL (80.0-100.0); Mono # (Auto) 0.5 th/mm3 (0.0-0.9); Neut # (Auto) 5.3 th/mm3 (1.8-7.7); Neut % (Auto) 73.7 % (16.0-70.0); Platelet Count 189 th/mm3 (150-450); Red Blood Count 3.96 mil/mm3 (4.00-5.30); Red Cell Distribution Width 13.1 % (11.6-17.2); White Blood Count 7.2 th/mm3 (4.0-11.0)
[2018-09-18 11:04] LABS: Alanine Aminotransferase 18 U/L (10-53); Albumin 2.8 g/dL (3.4-5.0); Alkaline Phosphatase 71 U/L (45-117); Anion Gap 12 meq/L (5-15); Aspartate Aminotransferase 14 U/L (15-37); Blood Urea Nitrogen 13 mg/dL (7-18); Calcium 7.9 mg/dL (8.5-10.1); Carbon Dioxide 19.5 meq/L (21.0-32.0); Chloride 110 meq/L (98-107); Chol/HDL Ratio 6.96 Ratio; Cholesterol 161 mg/dL (120-200); Free T4 (Free Thyroxine) 1.34 ng/dL (0.76-1.46); Glomerular Filtration Rate Greater Than 89 mL/min (>89); Glucose,Random 137 mg/dL (74-106); HDL Cholesterol 23.1 mg/dL (40.0-60.0); LDL Cholesterol,Calculated 103 mg/dL (0-99); Magnesium 1.8 mg/dL (1.5-2.5); Phosphorus 2.9 mg/dL (2.5-4.9); Sodium 141 meq/L (136-145); Total Protein 6.5 g/dL (6.4-8.2); Triglycerides 173 mg/dL (42-150)
[2018-09-18] MEDS ORDERED: Morphine Sulfate Inj 2 MG/ML Vial IV.PUSH ONE (11:30)
--- NOTE | 2018-09-18 12:00 | P.PNOP ---
Subjective Interval history: Pain is controlled. No new changes. X-rays still show ankle displaced and subluxed Physical Exam Vital signs: Vital Signs 09/17/18 12:00 09/17/18 16:00 09/17/18 19:00 Temperature 98.2 F 98.2 F 98.8 F Pulse Rate 93 H 93 H 103 H Respiratory Rate 26 H 26 H 24 Blood Pressure 171/77 H 171/77 H 159/77 H Pulse Oximetry 97 97 98 09/17/18 20:00 09/17/18 21:00 09/17/18 22:00 Temperature Pulse Rate 97 H 100 H 99 H Respiratory Rate 26 H 20 21 Blood Pressure 178/78 H 170/73 H 154/71 H Pulse Oximetry 99 97 99 09/17/18 23:00 09/17/18 23:30 09/18/18 00:00 Temperature 97.8 F Pulse Rate 101 H 90 Respiratory Rate 23 22 Blood Pressure 169/74 H 165/76 H 158/71 H Pulse Oximetry 98 98 09/18/18 01:00 09/18/18 01:30 09/18/18 02:00 Temperature Pulse Rate 94 H 91 H 96 H Respiratory Rate 23 22 13 Blood Pressure 149/75 H 170/73 H 126/60 Pulse Oximetry 98 98 97 09/18/18 03:00 09/18/18 03:30 09/18/18 04:00 Temperature 97.8 F Pulse Rate 90 92 H 93 H Respiratory Rate 13 22 21 Blood Pressure 140/63 168/77 H 147/68 H Pulse Oximetry 99 98 97 09/18/18 05:00 09/18/18 06:00 09/18/18 08:00 Temperature 98.8 F Pulse Rate 93 H 88 108 H Respiratory Rate 18 22 22 Blood Pressure 143/67 H 125/65 133/83 Pulse Oximetry 98 98 98 Intake & Output 09/17/18 09/18/18 09/18/18 18:59 06:59 18:59 Intake Total 1105 / 1105 1105 / 1105 100 / 100 Output Total 850 / 850 750 / 750 Balance 255 / 255 355 / 355 100 / 100 Weight 59.421 kg Intake: IV 1105 / 1105 1105 / 1105 100 / 100 NS Inj 1,000 ML @ 70 mls/hr IV. 1000 / 1000 1000 / 1000 CONT .[id number] [facility] Rx#:[id number] Ofirmev Inj 1,000 mg In 100 ml 100 / 100 @ 400 mls/hr IV.SIG Q6H PRN Rx# :[id number] Keppra Inj 500 MG In NS Inj 100 105 / 105 105 / 105 ML @ 400 mls/hr IV.SIG Q12H [facility] Rx#:[id number] Output: Urine Amount (Catheter) 850 / 850 750 / 750 Indwelling Urethral Catheter 850 / 850 750 / 750 Narrative: Right lower extremity: Splint intact. Splint is removed revealing continued skin blister over the medial portion of the ankle. He continues to have a blister over the dorsum of the foot. She has intact sensation in all her toes. And has sensation throughout the foot. Good distal pulses - Urinary Catheter Management Indwelling Urethral Catheter Cath placed during this visit: yes Reason for continuing: Acute urinary retention Insertion date: 09/16/18 Insertion time: 18:30 Results - Labs CBC & Chem 7: 09/18/18 09:47 09/18/18 09:47 Laboratory Results - last 24 hr 09/17/18 09/17/18 09/17/18 12:50 17:28 21:20 WBC RBC Hgb Hct MCV MCH MCHC RDW Plt Count MPV Neut % (Auto) Lymph % (Auto) [place] % (Auto) Eos % (Auto) Baso % (Auto) Neut # (Auto) Lymph # (Auto) [place] # (Auto) Eos # (Auto) Baso # (Auto) WBC Differential Differential Comment Sodium Potassium Chloride Carbon Dioxide Anion Gap BUN Creatinine Estimated GFR POC Glucose 182 H 224 H 157 H Random Glucose Calcium Phosphorus Magnesium Total Bilirubin AST ALT Alkaline Phosphatase Total Protein Albumin Triglycerides Cholesterol LDL Cholesterol, Calc HDL Cholesterol Cholesterol/HDL Ratio TSH Free T4 09/18/18 09/18/18 09/18/18 05:21 08:47 09:47 WBC 7.2 RBC 3.96 L Hgb 11.4 L Hct 34.6 L MCV 87.4 MCH 28.8 MCHC 33.0 RDW 13.1 Plt Count 189 MPV 9.0 Neut % (Auto) 73.7 H Lymph % (Auto) 17.6 [place] % (Auto) 7.0 Eos % (Auto) 1.1 Baso % (Auto) 0.6 Neut # (Auto) 5.3 Lymph # (Auto) 1.3 [place] # (Auto) 0.5 Eos # (Auto) 0.1 Baso # (Auto) 0.0 WBC Differential . Differential Comment Auto diff final Sodium Potassium Chloride Carbon Dioxide Anion Gap BUN Creatinine Estimated GFR POC Glucose 168 H 168 H Random Glucose Calcium Phosphorus Magnesium Total Bilirubin AST ALT Alkaline Phosphatase Total Protein Albumin Triglycerides Cholesterol LDL Cholesterol, Calc HDL Cholesterol Cholesterol/HDL Ratio TSH Free T4 09/18/18 09:47 WBC RBC Hgb Hct MCV MCH MCHC RDW Plt Count MPV Neut % (Auto) Lymph % (Auto) [place] % (Auto) Eos % (Auto) Baso % (Auto) Neut # (Auto) Lymph # (Auto) [place] # (Auto) Eos # (Auto) Baso # (Auto) WBC Differential Differential Comment Sodium 141 Potassium 3.0 L Chloride 110 H Carbon Dioxide 19.5 L Anion Gap 12 BUN 13 Creatinine 0.36 L Estimated GFR Greater than 89 POC Glucose Random Glucose 137 H Calcium 7.9 L Phosphorus 2.9 Magnesium 1.8 Total Bilirubin 0.5 AST 14 L ALT 18 Alkaline Phosphatase 71 Total Protein 6.5 D Albumin 2.8 L Triglycerides 173 H Cholesterol 161 LDL Cholesterol, Calc 103 H HDL Cholesterol 23.1 L Cholesterol/HDL Ratio 6.96 TSH 1.730 Free T4 1.34 Assessment and Plan - Assessment and Plan Right trimalleolar ankle fracture Resplinted and well-padded posterior and stirrup splint. Intact distal pulses and capillary refills noted. X-ray today for post reduction of right ankle When medically cleared, surgery will be performed for external fixation versus open reduction internal fixation of the ankle. Surgery may be limited due to fracture blister. We will continue to assess when medically cleared Nonweightbearing and maintain right ankle splint N.p.o. after midnight
--- NOTE | 2018-09-18 12:23 | P.PNIM ---
Subjective Interval history: 52-year-old female with past medical history of diabetes, tobacco abuse who tripped over a rake in the yard and presented to [facility] with right ankle pain. She was diagnosed with R trimalleolar fracture and preparations were being made for transfer to [facility] for eventual operative management. While in the [place] ED, she became agitated with aphasia and R facial droop. Stroke alert was called. CT brain was negative for hemorrhage. She had no head trauma. Initial preference was to avoid systemic TPA due to the fracture. Stat CTA brain and carotids were performed and she was transferred to [facility] for possible IR thrombectomy/ intraarterial lysis. CTA demonstrates proximal L MCA occlusion. Dr. Dunlap states images were reviewed by Dr. Mora and patient was not a candidate for IR intervention due to carotid atherosclerotic disease with significant stenosis. At that point, decision was made to proceed with systemic TPA which has been administered. Patient has persistent expressive aphasia. No prior h/o stroke or TIA. No seizure. She was drinking tonight with friends before this happened, but denies daily EtOH. SUBJ 09/16 lying in bed somnolent aphasic. Weaker on the right side. Follows commands on bilateral upper and lower extremities. Family at the bedside has noted that patient had not spoken any words today. 09/17: Patient is more awake today following commands still aphasic. Discussed with vascular surgery yesterday. Recommends left carotid stenting by IR due to intrathoracic carotid bifurcation. Patient not cleared by neurologist for IV heparin due to risk of hemorrhagic conversion Discussed with Dr. Fierro and Dr. Delvalle. Patient will need stenting of bilateral carotids by IR. However this will be planned as a staged procedure with probable stenting of one side on or Sunday followed by IV heparin for 24 hours. Stenting of the other carotid will be performed after [address] Delvalle prefers to wait at least until to reevaluate for stenting and IV heparin. 09-28 TRANSFERRED TO OUR SERVICE TODAY HAD RIGHT ANKLE REDUCED BY ORTHO TODAY THEY WANT TO REPAIR IT TOMORROW NEEDS NEUROLOGICAL CLEARANCE STILL VERY APHASIC AND NONVERBAL AT THIS TIME FOLLOWS COMMANDS DW DR SHIRA PÉREZ RN AND PT AND FAMILY NEEDS PAIN CONTROL Physical Exam Vital signs: Vital Signs 09/17/18 16:00 09/17/18 19:00 09/17/18 20:00 Temperature 98.2 F 98.8 F Pulse Rate 93 H 103 H 97 H Respiratory Rate 26 H 24 26 H Blood Pressure 171/77 H 159/77 H 178/78 H Pulse Oximetry 97 98 99 09/17/18 21:00 09/17/18 22:00 09/17/18 23:00 Temperature Pulse Rate 100 H 99 H 101 H Respiratory Rate 20 21 23 Blood Pressure 170/73 H 154/71 H 169/74 H Pulse Oximetry 97 99 98 09/17/18 23:30 09/18/18 00:00 09/18/18 01:00 Temperature 97.8 F Pulse Rate 90 94 H Respiratory Rate 22 23 Blood Pressure 165/76 H 158/71 H 149/75 H Pulse Oximetry 98 98 09/18/18 01:30 09/18/18 02:00 09/18/18 03:00 Temperature Pulse Rate 91 H 96 H 90 Respiratory Rate 22 13 13 Blood Pressure 170/73 H 126/60 140/63 Pulse Oximetry 98 97 99 09/18/18 03:30 09/18/18 04:00 09/18/18 05:00 Temperature 97.8 F Pulse Rate 92 H 93 H 93 H Respiratory Rate 22 21 18 Blood Pressure 168/77 H 147/68 H 143/67 H Pulse Oximetry 98 97 98 09/18/18 06:00 09/18/18 08:00 Temperature 98.8 F Pulse Rate 88 108 H Respiratory Rate 22 22 Blood Pressure 125/65 133/83 Pulse Oximetry 98 98 Intake & Output 09/17/18 09/18/18 09/18/18 18:59 06:59 18:59 Intake Total 1105 / 1105 1105 / 1105 100 / 100 Output Total 850 / 850 750 / 750 Balance 255 / 255 355 / 355 100 / 100 Weight 59.421 kg Intake: IV 1105 / 1105 1105 / 1105 100 / 100 NS Inj 1,000 ML @ 70 mls/hr IV. 1000 / 1000 1000 / 1000 CONT .[id number] JULIAN Rx#:[id number] Ofirmev Inj 1,000 mg In 100 ml 100 / 100 @ 400 mls/hr IV.SIG Q6H PRN Rx# :[id number] Keppra Inj 500 MG In NS Inj 100 105 / 105 105 / 105 ML @ 400 mls/hr IV.SIG Q12H JULIAN Rx#:[id number] Output: Urine Amount (Catheter) 850 / 850 750 / 750 Indwelling Urethral Catheter 850 / 850 750 / 750 Narrative: GENERAL: Well-nourished, well-developed female patient who is aphasic, but alert awake SKIN: Warm and dry. HEAD: Atraumatic. Normocephalic. EYES: Pupils equal and round. No scleral icterus. No injection or drainage. ENT: No nasal bleeding or discharge. Mucous membranes pink and moist. NECK: Trachea midline. No JVD. CARDIOVASCULAR: Regular rate and rhythm, sinus rhythm on the monitor. No murmurs rubs or gallops. RESPIRATORY: No accessory muscle use. Clear to auscultation. Breath sounds equal bilaterally. On room air GASTROINTESTINAL: Abdomen soft, non-tender, nondistended. MUSCULOSKELETAL: Extremities without clubbing, cyanosis. Posterior splint in place RLE, knee immobilizer in place. Normal cap refill. RIGHT LE IN SPLINT NEUROLOGICAL: Awake and alert, remains aphasic. No pronator drift. Strength 4/5 RUE and sensation intact. 5/5 hip flexor bilaterally, 5/5 L plantar and dorsiflexion. - Urinary Catheter Management Indwelling Urethral Catheter Cath placed during this visit: yes Reason for continuing: Acute urinary retention Insertion date: 09/16/18 Insertion time: 18:30 Results - Labs CBC & Chem 7: 09/18/18 09:47 09/18/18 09:47 Laboratory Results - last 24 hr 09/17/18 09/17/18 09/17/18 12:50 17:28 21:20 WBC RBC Hgb Hct MCV MCH MCHC RDW Plt Count MPV Neut % (Auto) Lymph % (Auto) [place] % (Auto) Eos % (Auto) Baso % (Auto) Neut # (Auto) Lymph # (Auto) [place] # (Auto) Eos # (Auto) Baso # (Auto) WBC Differential Differential Comment Sodium Potassium Chloride Carbon Dioxide Anion Gap BUN Creatinine Estimated GFR POC Glucose 182 H 224 H 157 H Random Glucose Calcium Phosphorus Magnesium Total Bilirubin AST ALT Alkaline Phosphatase Total Protein Albumin Triglycerides Cholesterol LDL Cholesterol, Calc HDL Cholesterol Cholesterol/HDL Ratio TSH Free T4 09/18/18 09/18/18 09/18/18 05:21 08:47 09:47 WBC 7.2 RBC 3.96 L Hgb 11.4 L Hct 34.6 L MCV 87.4 MCH 28.8 MCHC 33.0 RDW 13.1 Plt Count 189 MPV 9.0 Neut % (Auto) 73.7 H Lymph % (Auto) 17.6 [place] % (Auto) 7.0 Eos % (Auto) 1.1 Baso % (Auto) 0.6 Neut # (Auto) 5.3 Lymph # (Auto) 1.3 [place] # (Auto) 0.5 Eos # (Auto) 0.1 Baso # (Auto) 0.0 WBC Differential . Differential Comment Auto diff final Sodium Potassium Chloride Carbon Dioxide Anion Gap BUN Creatinine Estimated GFR POC Glucose 168 H 168 H Random Glucose Calcium Phosphorus Magnesium Total Bilirubin AST ALT Alkaline Phosphatase Total Protein Albumin Triglycerides Cholesterol LDL Cholesterol, Calc HDL Cholesterol Cholesterol/HDL Ratio TSH Free T4 09/18/18 09/18/18 09:47 12:01 WBC RBC Hgb Hct MCV MCH MCHC RDW Plt Count MPV Neut % (Auto) Lymph % (Auto) [place] % (Auto) Eos % (Auto) Baso % (Auto) Neut # (Auto) Lymph # (Auto) [place] # (Auto) Eos # (Auto) Baso # (Auto) WBC Differential Differential Comment Sodium 141 Potassium 3.0 L Chloride 110 H Carbon Dioxide 19.5 L Anion Gap 12 BUN 13 Creatinine 0.36 L Estimated GFR Greater than 89 POC Glucose 154 H Random Glucose 137 H Calcium 7.9 L Phosphorus 2.9 Magnesium 1.8 Total Bilirubin 0.5 AST 14 L ALT 18 Alkaline Phosphatase 71 Total Protein 6.5 D Albumin 2.8 L Triglycerides 173 H Cholesterol 161 LDL Cholesterol, Calc 103 H HDL Cholesterol 23.1 L Cholesterol/HDL Ratio 6.96 TSH 1.730 Free T4 1.34 - Procedures SP BEDSIDE REDUCTION OF RIGHT LE BY ORTHO 09-18 Assessment and Plan - Plan Acute ischemic left MCA stroke Bilateral carotid stenosis s/p TPA 02:16 on 09/15. No antiplatelets or anticoagulants for 24 hours post TPA. Started on ASA therapy. F/u CT brain 24 hours post-TPA. -Evolving left MCA infarct Neurochecks and BP monitoring in [facility] [place]. Maintain SBP <180/100 due to TPA, avoid hypotension with carotid disease. 2D Echo, fasting lipid, hgbA1c, telemetry monitoring (currently sinus rhythm) Neurology Dr. Arriaga. Not cleared for full anticoagulation Vascular surgery consult CTA neck High-grade stenosis at the origin of the right common carotid artery and moderately severe stenosis at the origin of the left common carotid artery. 50-60% carotid bifurcation stenosis also present bilaterally. Consult IR for Left carotid stenting. Vascular surgery Dr. Jack recommends anticoagulation in 24 hours if cleared by neurosurgery WILL NEED BL CAROTID STENTING IN FUTURE RESP: Tobacco abuse Tobacco cessation counseling discussed. On room air. CV: HTN Labetalol/hydralazine/cardene prn SBP <180/100 for first 24 hours post TPA. HLD pravastatin 40 mg daily when PO permitted GI: NPO until cleared by speech. Speech therapy to evaluate swallow and speech FEN/RENAL: Normal creatinine. Voiding. Replace electrolytes as indicated ID: Monitor for signs and symptoms of infection HEME: Monitor CBC ENDO: Diabetes mellitus, with acute hyperglycemia Hold oral anti-hypoglycemics including metformin Monitor bedside glucose q4 and low dose sliding scale MSK: Trimalleolar ankle fracture Neurovascular checks, maintain splint and knee immobilizer. Eventual operative management when stabilized from standpoint of stroke. SP BEDSIDE REDUCTION ON 09-18 BY ORTHO - THEY WANT TO REPAIR ON 09-19-- NEEDS NEUROLOGY CLEARANCE PROPH: SCD for DVT prophylaxis. No pharmacologic DVT prophylaxis for 24 hours post TPA , start sq heparin today. Famotidine 20 mill grams IV every 12 hours for stress ulcer prophylaxis. ACCESS: Peripheral IV. No central or arterial sticks for 24 hours post TPA Code Status: FULL CODE Discussed Condition With: RN AND PT AND FAMILY Discharge Planning: PENDING ORTHO AND NEUROLOGICAL CLEARANCE
[2018-09-18] MEDS ORDERED: Naloxone Inj 0.4 MG/ML Vial IV.PUSH PRN (12:24)
[2018-09-18] MEDS ORDERED: Morphine Inj 4 MG/ML Vial IV.PUSH PRN ×2 (12:24)
--- NOTE | 2018-09-18 20:08 | ECG ---
Date Performed: 09/17/2018 Time Performed: 11:19:02 PTAGE: 52 years EKG: Sinus rhythm with PAC(s) Left anterior fascicular block Borderline ECG NO PREVIOUS TRACING DOCTOR: Kirill Garcia Interpretating Date/Time 09/18/2018 20:07:24
[2018-09-18 20:35] LABS: Hemoglobin A1c 8.4 % (4.3-6.0)
[2018-09-19] MEDS: Insulin NovoLOG Aspart Correctional Sugar Inj SQ SCH ×6 (00:35→20:43)
[2018-09-19 05:36] LABS: Baso # (Auto) 0.1 th/mm3 (0.0-0.2); Eos # (Auto) 0.1 th/mm3 (0.0-0.4); Eos % (Auto) 1.6 % (0.0-4.0); Hematocrit 31.4 % (35.0-46.0); Hemoglobin 10.4 gm/dL (11.6-15.3); Lymph # (Auto) 1.2 th/mm3 (1.0-4.8); Lymph % (Auto) 19.5 % (9.0-44.0); Mean Corpuscular HGB Conc 33.1 % (32.0-36.0); Mean Corpuscular Hemoglobin 28.7 pg (27.0-34.0); Mean Corpuscular Volume 86.7 fL (80.0-100.0); Mean Platelet Volume 8.6 fL (7.0-11.0); Mono # (Auto) 0.5 th/mm3 (0.0-0.9); Mono % (Auto) 7.1 % (0.0-8.0); Neut # (Auto) 4.5 th/mm3 (1.8-7.7); Neut % (Auto) 70.8 % (16.0-70.0); Platelet Count 187 th/mm3 (150-450); Red Blood Count 3.62 mil/mm3 (4.00-5.30); Red Cell Distribution Width 13.3 % (11.6-17.2); White Blood Count 6.4 th/mm3 (4.0-11.0)
[2018-09-19 05:45] LABS: Prothrombin Time 10.4 sec (9.8-11.6)
[2018-09-19 06:03] LABS: Albumin 2.6 g/dL (3.4-5.0); Anion Gap 12 meq/L (5-15); Aspartate Aminotransferase 13 U/L (15-37); Blood Urea Nitrogen 14 mg/dL (7-18); Calcium 7.8 mg/dL (8.5-10.1); Carbon Dioxide 20.5 meq/L (21.0-32.0); Chloride 111 meq/L (98-107); Glomerular Filtration Rate Greater Than 89 mL/min (>89); Glucose,Random 132 mg/dL (74-106); Magnesium 1.8 mg/dL (1.5-2.5); Sodium 143 meq/L (136-145)
[2018-09-19 06:05] LABS: Alanine Aminotransferase 18 U/L (10-53)
[2018-09-19 06:07] LABS: Alkaline Phosphatase 70 U/L (45-117); Phosphorus 3.2 mg/dL (2.5-4.9); Total Protein 6.1 g/dL (6.4-8.2)
[2018-09-19] MEDS: Chlorhexidine Gluconate 2% 1 Pack (2 Cloths) TOPICAL SCH (06:18)
[2018-09-19] MEDS: Heparin - SQ 10,000 UNITS/ML Vial SQ SCH ×3 (06:18→21:18)
[2018-09-19] MEDS: Potassium Chlor 20 mEq Premix 20 MEQ/100 ML PIGGYBACK IV.SIG PRN ×4 (07:20→15:23)
[2018-09-19] MEDS: Famotidine PF Inj 20 MG/2 ML Vial IV.PUSH SCH ×2 (08:09→20:42)
[2018-09-19] MEDS: Aspirin 300 MG Supp RECTAL SCH (08:09)
[2018-09-19] MEDS: Sod Chloride 0.9% Inj 1,000 ML IV.CONT SCH ×2 (08:10→22:28)
[2018-09-19] MEDS: Senna/Docusate Sodium 8.6/50 MG Tablet PO SCH ×2 (08:10→20:42)
[2018-09-19] MEDS: Morphine Sulfate Inj 2 MG/ML Vial IV.PUSH PRN ×4 (08:10→20:43)
[2018-09-19] MEDS ORDERED: niCARdipine 20mg/NS Premix 20 MG/200 ML PIGGYBACK IV.SIG PRN (08:33)
[2018-09-19] MEDS ORDERED: Glycopyrrolate Inj 1 MG/5 ML Syringe IV.PUSH ONE (11:12)
[2018-09-19] MEDS ORDERED: Phenylephrine/NS 1000 MCG/10ML Syringe IV.PUSH ONE (11:12)
[2018-09-19] MEDS ORDERED: Lidocaine PF 1% Inj 5 ML Syringe INFILTRATN ONE (11:12)
[2018-09-19] MEDS ORDERED: Neostigmine Inj 5 MG/5 ML Syringe IV.PUSH ONE (11:12)
[2018-09-19] MEDS ORDERED: ceFAZolin 1 GM Premix Inj 1 GM/50 ML PIGGYBACK IV.SIG ONE (11:20)
[2018-09-19] MEDS ORDERED: Bupivacaine/Epinephrine PF Inj 0.5% 30 ML Vial ONE (11:21)
[2018-09-19] MEDS ORDERED: Post-op Orders (for Pharmacy) OTHER STA (12:01)
--- NOTE | 2018-09-19 12:06 | P.OP ---
- Preoperative Diagnosis (1) Closed trimalleolar fracture of ankle Date of procedure: 09/19/18 Procedure: Closed reduction of right ankle with external fixation Anesthesia: GETA Surgeon: Arvind Linder MD Electronic Train Control Technician: REBECCA Pineda PA-C The surgical procedure was assisted by my physician resident programs assistant. My P.A. presence was necessary throughout this case for the manipulation and positioning of the surgical extremity. My P.A. was assisting me throughout the duration of this procedure. The skill set of a physician resident programs assistant was medically necessary to complete this procedure. During the surgical case the surgical supply assistant was working at the back table and the physician resident programs assistant was directly assisting me. Operation and Findings: Implants used: [employer] Details of procedure: This patient sustained an injury resulting in unstable fractures of the right distal tibia and fibula. Patient was also having us acute stroke. She was not cleared for surgery until today. Attempt was made for closed reduction and splinting. Patient's fracture was very unstable and had recurrent dislocation. Patient was seen and evaluated preoperatively and found to have too much swelling to proceed with open reduction internal fixation. Risk and benefits of surgery were discussed in depth with patient and informed consent was confirmed. Surgical site was marked. Patient was brought to operating room and placed on the OR table. Patient was given IV sedation and GETA. Patient received IV antibiotics and timeout procedure was performed. Operative leg was prepped with alcohol followed by Hibiclens and draped in the usual sterile fashion. Timeout procedure was performed. The procedure began with placement of external fixation. Two percutaneous incisions were made over the tibia. Pin sites were pre-drilled. External fixation pins were placed from anterior to posterior in the tibia shaft. An additional transfixion pin was placed through the calcaneus. Pins were also placed in the first and fifth metatarsals. An external fixator was now constructed. Fluoroscopy was used to confirm appropriate pin placement Next attention was turned to traction with manipulation of the leg. The fracture was manipulated under fluoroscopy. Reasonable reduction was achieved. With the fracture held in reduced position, the external fixator was tightened. An additional bar was placed posterior to the heel to keep the heel off the bed and avoid pressure ulceration. Fluoroscopy confirmed a well-placed external fixation with well-aligned fractures. Sterile dressings were applied. The patient was awakened and transferred to Recovery in stable condition. The soft tissue was reevaluated. Patient did have swelling around the ankle and calf but compartments were soft and compressible with no signs of compartment syndrome.
[2018-09-19] MEDS ORDERED: fentaNYL Citrate Inj 100 MCG/2 ML Ampul ONE (12:36)
--- NOTE | 2018-09-19 14:46 | P.PNIM ---
Subjective Interval history: 52-year-old female with past medical history of diabetes, tobacco abuse who tripped over a rake in the yard and presented to [facility] with right ankle pain. She was diagnosed with R trimalleolar fracture and preparations were being made for transfer to [facility] for eventual operative management. While in the [place] ED, she became agitated with aphasia and R facial droop. Stroke alert was called. CT brain was negative for hemorrhage. She had no head trauma. Initial preference was to avoid systemic TPA due to the fracture. Stat CTA brain and carotids were performed and she was transferred to [facility] for possible IR thrombectomy/ intraarterial lysis. CTA demonstrates proximal L MCA occlusion. Dr. Dunlap states images were reviewed by Dr. Mora and patient was not a candidate for IR intervention due to carotid atherosclerotic disease with significant stenosis. At that point, decision was made to proceed with systemic TPA which has been administered. Patient has persistent expressive aphasia. No prior h/o stroke or TIA. No seizure. She was drinking tonight with friends before this happened, but denies daily EtOH. SUBJ 09/16 lying in bed somnolent aphasic. Weaker on the right side. Follows commands on bilateral upper and lower extremities. Family at the bedside has noted that patient had not spoken any words today. 09/17: Patient is more awake today following commands still aphasic. Discussed with vascular surgery yesterday. Recommends left carotid stenting by IR due to intrathoracic carotid bifurcation. Patient not cleared by neurologist for IV heparin due to risk of hemorrhagic conversion Discussed with Dr. Fierro and Dr. Delvalle. Patient will need stenting of bilateral carotids by IR. However this will be planned as a staged procedure with probable stenting of one side on or Sunday followed by IV heparin for 24 hours. Stenting of the other carotid will be performed after [address] Delvalle prefers to wait at least until to reevaluate for stenting and IV heparin. 09-28 TRANSFERRED TO OUR SERVICE TODAY HAD RIGHT ANKLE REDUCED BY ORTHO TODAY THEY WANT TO REPAIR IT TOMORROW NEEDS NEUROLOGICAL CLEARANCE STILL VERY APHASIC AND NONVERBAL AT THIS TIME FOLLOWS COMMANDS DW DR SHIRA PÉREZ RN AND PT AND FAMILY NEEDS PAIN CONTROL 11-8 SP EXTERNAL FIXATION OF RIGHT ANKLE BY SURGERY REMAINS NONVERBAL AM LABS NEEDS BL CAROTID STENTING BY IR Physical Exam Vital signs: Vital Signs 09/18/18 15:00 09/18/18 15:30 09/18/18 16:00 Temperature 98.9 F Pulse Rate 106 H 96 H 93 H Respiratory Rate 21 23 21 Blood Pressure 139/76 162/77 H 178/87 H Pulse Oximetry 98 97 97 09/18/18 20:00 09/19/18 00:00 09/19/18 04:00 Temperature 98.9 F 98.2 F 98.7 F Pulse Rate 85 81 89 Respiratory Rate 24 20 22 Blood Pressure 136/74 156/82 H 160/78 H Pulse Oximetry 97 98 97 09/19/18 08:00 09/19/18 10:00 09/19/18 12:25 Temperature 98.2 F 97.2 F L Pulse Rate 95 H 89 107 H Respiratory Rate 21 20 14 Blood Pressure 148/74 H 152/79 H Pulse Oximetry 99 96 09/19/18 12:30 09/19/18 12:45 09/19/18 13:00 Temperature Pulse Rate 104 H 87 97 H Respiratory Rate 14 16 17 Blood Pressure 149/86 H 150/63 H 174/81 H Pulse Oximetry 96 100 98 09/19/18 13:15 Temperature 97 F L Pulse Rate 91 H Respiratory Rate 15 Blood Pressure 175/77 H Pulse Oximetry 98 Intake & Output 09/18/18 09/19/18 09/19/18 18:59 06:59 18:59 Intake Total 1205 / 1205 1855 / 1855 Output Total 800 / 800 525 / 525 455 / 455 Balance 405 / 405 -525 / -525 1400 / 1400 Weight 60.9 kg Intake: IV 1205 / 1205 1355 / 1355 NS Inj 1,000 ML @ 70 mls/hr IV. 1000 / 1000 1000 / 1000 CONT .[id number] [facility] Rx#:[id number] Ofirmev Inj 1,000 mg In 100 ml 100 / 100 @ 400 mls/hr IV.SIG Q6H PRN Rx# :[id number] KCl 20 mEq Premix Inj 20 meq In 200 / 200 100 ml @ 50 mls/hr IV.SIG Q2H PRN Rx#:[id number] Ancef 1 GM Premix Inj 1 gm In 50 / 50 50 ml @ 0 mls/hr IV.SIG .STK- MED ONE Rx#:[id number] Keppra Inj 500 MG In NS Inj 100 105 / 105 105 / 105 ML @ 400 mls/hr IV.SIG Q12H [facility] Rx#:[id number] Oral 0 / 0 Anesthesia Amount 500 / 500 Output: Estimated Blood Loss 5 / 5 Urine Amount (Catheter) 800 / 800 525 / 525 450 / 450 Indwelling Urethral Catheter 800 / 800 525 / 525 450 / 450 Other: Date of Last Bowel Movement 09/15/18 09/15/18 # Bowel Movements 0 Narrative: GENERAL: Well-nourished, well-developed female patient who is aphasic, but alert awake-FOLLOWS COMMANDS BUT TOTALLY APHASIC AND NONVERBAL AT THIS TIME SKIN: Warm and dry. HEAD: Atraumatic. Normocephalic. EYES: Pupils equal and round. No scleral icterus. No injection or drainage. ENT: No nasal bleeding or discharge. Mucous membranes pink and moist. NECK: Trachea midline. No JVD. CARDIOVASCULAR: Regular rate and rhythm, sinus rhythm on the monitor. No murmurs rubs or gallops. RESPIRATORY: No accessory muscle use. Clear to auscultation. Breath sounds equal bilaterally. On room air GASTROINTESTINAL: Abdomen soft, non-tender, nondistended. MUSCULOSKELETAL: Extremities without clubbing, cyanosis. Posterior splint in place RLE, knee immobilizer in place. Normal cap refill. RIGHT LE WITH EXTERNAL FIXATION IN PLACE NEUROLOGICAL: Awake and alert, remains aphasic. No pronator drift. Strength 4/5 RUE and sensation intact. 5/5 hip flexor bilaterally, 5/5 L plantar and dorsiflexion. - Urinary Catheter Management Indwelling Urethral Catheter Cath placed during this visit: yes Reason for continuing: Hourly intake/output Insertion date: 09/16/18 Insertion time: 18:30 Results - Labs CBC & Chem 7: 09/19/18 05:23 09/19/18 05:23 Laboratory Results - last 24 hr 09/18/18 09/18/18 09/18/18 09:47 16:15 20:08 WBC RBC Hgb Hct MCV MCH MCHC RDW Plt Count MPV Neut % (Auto) Lymph % (Auto) [place] % (Auto) Eos % (Auto) Baso % (Auto) Neut # (Auto) Lymph # (Auto) [place] # (Auto) Eos # (Auto) Baso # (Auto) WBC Differential Differential Comment PT INR Sodium Potassium Chloride Carbon Dioxide Anion Gap BUN Creatinine Estimated GFR POC Glucose 141 H 162 H Random Glucose Hemoglobin A1c 8.4 H Calcium Phosphorus Magnesium Total Bilirubin AST ALT Alkaline Phosphatase Total Protein Albumin 09/18/18 09/19/18 09/19/18 23:49 04:00 05:23 WBC 6.4 RBC 3.62 L Hgb 10.4 L Hct 31.4 L MCV 86.7 MCH 28.7 MCHC 33.1 RDW 13.3 Plt Count 187 MPV 8.6 Neut % (Auto) 70.8 H Lymph % (Auto) 19.5 [place] % (Auto) 7.1 Eos % (Auto) 1.6 Baso % (Auto) 1.0 Neut # (Auto) 4.5 Lymph # (Auto) 1.2 [place] # (Auto) 0.5 Eos # (Auto) 0.1 Baso # (Auto) 0.1 WBC Differential . Differential Comment Auto diff final PT INR Sodium Potassium Chloride Carbon Dioxide Anion Gap BUN Creatinine Estimated GFR POC Glucose 140 H 132 H Random Glucose Hemoglobin A1c Calcium Phosphorus Magnesium Total Bilirubin AST ALT Alkaline Phosphatase Total Protein Albumin 09/19/18 09/19/18 09/19/18 05:23 05:23 12:35 WBC RBC Hgb Hct MCV MCH MCHC RDW Plt Count MPV Neut % (Auto) Lymph % (Auto) [place] % (Auto) Eos % (Auto) Baso % (Auto) Neut # (Auto) Lymph # (Auto) [place] # (Auto) Eos # (Auto) Baso # (Auto) WBC Differential Differential Comment PT 10.4 INR 1.0 Sodium 143 Potassium 3.0 L Chloride 111 H Carbon Dioxide 20.5 L Anion Gap 12 BUN 14 Creatinine 0.41 L Estimated GFR Greater than 89 POC Glucose 149 H Random Glucose 132 H Hemoglobin A1c Calcium 7.8 L Phosphorus 3.2 Magnesium 1.8 Total Bilirubin 0.5 AST 13 L ALT 18 Alkaline Phosphatase 70 Total Protein 6.1 L Albumin 2.6 L - Imaging ITS Impressions Head MRI 09/15/18 00:00 CONCLUSION: 1. Focal areas of restricted diffusion in the left frontal, left parietal and left insular lobes characteristic of acute middle cerebral artery infarcts. 2. No evidence of hemorrhage or significant edema. Head CT 09/16/18 03:00 CONCLUSION: Evolving left MCA territory hypodensities. No evidence of hemorrhage . Ankle X-Ray 09/17/18 00:00 CONCLUSION: No significant change in alignment of the trimalleolar fracture dislocation. - Procedures SP BEDSIDE REDUCTION OF RIGHT LE BY ORTHO 11-7 (1) Closed trimalleolar fracture of ankle Date of procedure: 09/19/18 Procedure: Closed reduction of right ankle with external fixation Anesthesia: GETA Surgeon: Arvind Linder MD Manufacture Specialist: REBECCA Pineda PA-C The surgical procedure was assisted by my physician benefits assistant. My P.A. presence was necessary throughout this case for the manipulation and positioning of the surgical extremity. My P.A. was assisting me throughout the duration of this procedure. The skill set of a physician benefits assistant was medically necessary to complete this procedure. During the surgical case the heat treatment technician was working at the back table and the physician benefits assistant was directly assisting me. Operation and Findings: Implants used: Orthofix Details of procedure: This patient sustained an injury resulting in unstable fractures of the right distal tibia and fibula. Patient was also having us acute stroke. She was not cleared for surgery until today. Attempt was made for closed reduction and splinting. Patient's fracture was very unstable and had recurrent dislocation. Patient was seen and evaluated preoperatively and found to have too much swelling to proceed with open reduction internal fixation. Risk and benefits of surgery were discussed in depth with patient and informed consent was confirmed. Surgical site was marked. Patient was brought to operating room and placed on the OR table. Patient was given IV sedation and GETA. Patient received IV antibiotics and timeout procedure was performed. Operative leg was prepped with alcohol followed by Hibiclens and draped in the usual sterile fashion. Timeout procedure was performed. The procedure began with placement of external fixation. Two percutaneous incisions were made over the tibia. Pin sites were pre-drilled. External fixation pins were placed from anterior to posterior in the tibia shaft. An additional transfixion pin was placed through the calcaneus. Pins were also placed in the first and fifth metatarsals. An external fixator was now constructed. Fluoroscopy was used to confirm appropriate pin placement Next attention was turned to traction with manipulation of the leg. The fracture was manipulated under fluoroscopy. Reasonable reduction was achieved. With the fracture held in reduced position, the external fixator was tightened. An additional bar was placed posterior to the heel to keep the heel off the bed and avoid pressure ulceration. Fluoroscopy confirmed a well-placed external fixation with well-aligned fractures. Sterile dressings were applied. The patient was awakened and transferred to Recovery in stable condition. The soft tissue was reevaluated. Patient did have swelling around the ankle and calf but compartments were soft and compressible with no signs of compartment syndrome. Additional CC's: Arvind Linder Assessment and Plan - Plan Acute ischemic left MCA stroke Bilateral carotid stenosis s/p TPA 02:16 on 09/15. No antiplatelets or anticoagulants for 24 hours post TPA. Started on ASA therapy. F/u CT brain 24 hours post-TPA. -Evolving left MCA infarct Neurochecks and BP monitoring in ISC. Maintain SBP <180/100 due to TPA, avoid hypotension with carotid disease. 2D Echo, fasting lipid, hgbA1c, telemetry monitoring (currently sinus rhythm) Neurology Dr. Arriaga. Not cleared for full anticoagulation Vascular surgery consult CTA neck High-grade stenosis at the origin of the right common carotid artery and moderately severe stenosis at the origin of the left common carotid artery. 50-60% carotid bifurcation stenosis also present bilaterally. Consult IR for Left carotid stenting. Vascular surgery Dr. Jack recommends anticoagulation in 24 hours if cleared by neurosurgery WILL NEED BL CAROTID STENTING IN FUTURE RESP: Tobacco abuse Tobacco cessation counseling discussed. On room air. CV: HTN Labetalol/hydralazine/cardene prn SBP <180/100 for first 24 hours post TPA. HLD pravastatin 40 mg daily when PO permitted GI: NPO until cleared by speech. Speech therapy to evaluate swallow and speech FEN/RENAL: Normal creatinine. Voiding. Replace electrolytes as indicated ID: Monitor for signs and symptoms of infection HEME: Monitor CBC ENDO: Diabetes mellitus, with acute hyperglycemia Hold oral anti-hypoglycemics including metformin Monitor bedside glucose q4 and low dose sliding scale MSK: Trimalleolar ankle fracture Neurovascular checks, maintain splint and knee immobilizer. Eventual operative management when stabilized from standpoint of stroke. SP BEDSIDE REDUCTION ON 09-18 BY ORTHO - THEY WANT TO REPAIR ON 09-19-- HAD BEEN CLEARED BY NEUROLOGY SP REPAIR ON 09-19 PROPH: SCD for DVT prophylaxis. No pharmacologic DVT prophylaxis for 24 hours post TPA , start sq heparin today. Famotidine 20 mill grams IV every 12 hours for stress ulcer prophylaxis. ACCESS: Peripheral IV. No central or arterial sticks for 24 hours post TPA Code Status: FULL CODE Discussed Condition With: RN AND PT Discharge Planning: PENDING ORTHO AND NEUROLOGICAL CLEARANCE
[2018-09-19] MEDS: Potassium Chlor 10 mEq Premix 10 MEQ/100 ML PIGGYBACK IV.SIG SCH ×6 (14:55→20:00)
--- NOTE | 2018-09-19 15:15 | XR ---
EXAM DATE: 09/19/2018 2:59 PM EST AGE/SEX: 52 years / Female INDICATIONS: Reduction and Ex Fix placement right ankle. CLINICAL DATA: This is the patient's subsequent encounter. Patient reports that signs and symptoms h ave been present for 1 week and indicates a pain score of Nonresponsive. MEDICAL/SURGICAL HISTORY: . Stroke. None. [place] [facility] [place] 3[place]17/2018. . FINDINGS: 2 intraoperative spot images of the right ankle. Distal tibia and fibula fractures again seen. There is widening of the ankle mortise medially. CONCLUSION: Distal tibia and fibular fractures again seen. Electronically signed by: Huy Bernstein MD 09/19/2018 3:13 PM EST
--- NOTE | 2018-09-19 15:46 | P.PN ---
Subjective Interval history: still nonverbal had ortho procedure some pain. very awake and alert ?afib on monitor Physical Exam Vital signs: Vital Signs 09/18/18 16:00 09/18/18 20:00 09/19/18 00:00 Temperature 98.9 F 98.9 F 98.2 F Pulse Rate 93 H 85 81 Respiratory Rate 21 24 20 Blood Pressure 178/87 H 136/74 156/82 H Pulse Oximetry 97 97 98 09/19/18 04:00 09/19/18 08:00 09/19/18 10:00 Temperature 98.7 F 98.2 F Pulse Rate 89 95 H 89 Respiratory Rate 22 21 20 Blood Pressure 160/78 H 148/74 H Pulse Oximetry 97 99 09/19/18 12:25 09/19/18 12:30 09/19/18 12:45 Temperature 97.2 F L Pulse Rate 107 H 104 H 87 Respiratory Rate 14 14 16 Blood Pressure 152/79 H 149/86 H 150/63 H Pulse Oximetry 96 96 100 09/19/18 13:00 09/19/18 13:15 Temperature 97 F L Pulse Rate 97 H 91 H Respiratory Rate 17 15 Blood Pressure 174/81 H 175/77 H Pulse Oximetry 98 98 Intake & Output 09/18/18 09/19/18 09/19/18 18:59 06:59 18:59 Intake Total 1205 / 1205 1955 / 1955 Output Total 800 / 800 525 / 525 455 / 455 Balance 405 / 405 -525 / -525 1500 / 1500 Weight 60.9 kg Intake: IV 1205 / 1205 1455 / 1455 NS Inj 1,000 ML @ 70 mls/hr IV. 1000 / 1000 1000 / 1000 CONT .[id number] [facility] Rx#:[id number] Ofirmev Inj 1,000 mg In 100 ml 100 / 100 @ 400 mls/hr IV.SIG Q6H PRN Rx# :[id number] KCl 20 mEq Premix Inj 20 meq In 300 / 300 100 ml @ 50 mls/hr IV.SIG Q2H PRN Rx#:[id number] Ancef 1 GM Premix Inj 1 gm In 50 / 50 50 ml @ 0 mls/hr IV.SIG .STK- MED ONE Rx#:[id number] Keppra Inj 500 MG In NS Inj 100 105 / 105 105 / 105 ML @ 400 mls/hr IV.SIG Q12H [facility] Rx#:[id number] Oral 0 / 0 Anesthesia Amount 500 / 500 Output: Estimated Blood Loss 5 / 5 Urine Amount (Catheter) 800 / 800 525 / 525 450 / 450 Indwelling Urethral Catheter 800 / 800 525 / 525 450 / 450 Other: Date of Last Bowel Movement 09/15/18 09/15/18 # Bowel Movements 0 - Routine HEENT Exam Head: Present: normocephalic, atraumatic Eye: Present: EOMI ENT: Present: mucous membranes dry - Routine Neurological Exam Present: alert, normal reflexes, moving all extremities expressive aphasia - Urinary Catheter Management Indwelling Urethral Catheter Cath placed during this visit: yes Reason for continuing: Hourly intake/output Insertion date: 09/16/18 Insertion time: 18:30 Results - Labs CBC & Chem 7: 09/19/18 05:23 09/19/18 05:23 Laboratory Results - last 24 hr 09/18/18 09/18/18 09/18/18 09:47 16:15 20:08 WBC RBC Hgb Hct MCV MCH MCHC RDW Plt Count MPV Neut % (Auto) Lymph % (Auto) [place] % (Auto) Eos % (Auto) Baso % (Auto) Neut # (Auto) Lymph # (Auto) [place] # (Auto) Eos # (Auto) Baso # (Auto) WBC Differential Differential Comment PT INR Sodium Potassium Chloride Carbon Dioxide Anion Gap BUN Creatinine Estimated GFR POC Glucose 141 H 162 H Random Glucose Hemoglobin A1c 8.4 H Calcium Phosphorus Magnesium Total Bilirubin AST ALT Alkaline Phosphatase Total Protein Albumin 09/18/18 09/19/18 09/19/18 23:49 04:00 05:23 WBC 6.4 RBC 3.62 L Hgb 10.4 L Hct 31.4 L MCV 86.7 MCH 28.7 MCHC 33.1 RDW 13.3 Plt Count 187 MPV 8.6 Neut % (Auto) 70.8 H Lymph % (Auto) 19.5 [place] % (Auto) 7.1 Eos % (Auto) 1.6 Baso % (Auto) 1.0 Neut # (Auto) 4.5 Lymph # (Auto) 1.2 [place] # (Auto) 0.5 Eos # (Auto) 0.1 Baso # (Auto) 0.1 WBC Differential . Differential Comment Auto diff final PT INR Sodium Potassium Chloride Carbon Dioxide Anion Gap BUN Creatinine Estimated GFR POC Glucose 140 H 132 H Random Glucose Hemoglobin A1c Calcium Phosphorus Magnesium Total Bilirubin AST ALT Alkaline Phosphatase Total Protein Albumin 09/19/18 09/19/18 09/19/18 05:23 05:23 12:35 WBC RBC Hgb Hct MCV MCH MCHC RDW Plt Count MPV Neut % (Auto) Lymph % (Auto) [place] % (Auto) Eos % (Auto) Baso % (Auto) Neut # (Auto) Lymph # (Auto) [place] # (Auto) Eos # (Auto) Baso # (Auto) WBC Differential Differential Comment PT 10.4 INR 1.0 Sodium 143 Potassium 3.0 L Chloride 111 H Carbon Dioxide 20.5 L Anion Gap 12 BUN 14 Creatinine 0.41 L Estimated GFR Greater than 89 POC Glucose 149 H Random Glucose 132 H Hemoglobin A1c Calcium 7.8 L Phosphorus 3.2 Magnesium 1.8 Total Bilirubin 0.5 AST 13 L ALT 18 Alkaline Phosphatase 70 Total Protein 6.1 L Albumin 2.6 L 09/19/18 15:34 WBC RBC Hgb Hct MCV MCH MCHC RDW Plt Count MPV Neut % (Auto) Lymph % (Auto) [place] % (Auto) Eos % (Auto) Baso % (Auto) Neut # (Auto) Lymph # (Auto) [place] # (Auto) Eos # (Auto) Baso # (Auto) WBC Differential Differential Comment PT INR Sodium Potassium Chloride Carbon Dioxide Anion Gap BUN Creatinine Estimated GFR POC Glucose 161 H Random Glucose Hemoglobin A1c Calcium Phosphorus Magnesium Total Bilirubin AST ALT Alkaline Phosphatase Total Protein Albumin - Imaging Impressions Ankle X-Ray 09/19/18 00:00 CONCLUSION: Distal tibia and fibular fractures again seen. - Procedures SP BEDSIDE REDUCTION OF RIGHT LE BY ORTHO 09-18 (1) Closed trimalleolar fracture of ankle Date of procedure: 09/19/18 Procedure: Closed reduction of right ankle with external fixation Anesthesia: LEYDA Surgeon: Arvind Linder MD International Bank Manager: REBECCA Pineda PA-C The surgical procedure was assisted by my physician pastry assistant. My P.A. presence was necessary throughout this case for the manipulation and positioning of the surgical extremity. My P.A. was assisting me throughout the duration of this procedure. The skill set of a physician pastry assistant was medically necessary to complete this procedure. During the surgical case the manager surgical was working at the back table and the physician pastry assistant was directly assisting me. Operation and Findings: Implants used: Orthofix Details of procedure: This patient sustained an injury resulting in unstable fractures of the right distal tibia and fibula. Patient was also having us acute stroke. She was not cleared for surgery until today. Attempt was made for closed reduction and splinting. Patient's fracture was very unstable and had recurrent dislocation. Patient was seen and evaluated preoperatively and found to have too much swelling to proceed with open reduction internal fixation. Risk and benefits of surgery were discussed in depth with patient and informed consent was confirmed. Surgical site was marked. Patient was brought to operating room and placed on the OR table. Patient was given IV sedation and GETA. Patient received IV antibiotics and timeout procedure was performed. Operative leg was prepped with alcohol followed by Hibiclens and draped in the usual sterile fashion. Timeout procedure was performed. The procedure began with placement of external fixation. Two percutaneous incisions were made over the tibia. Pin sites were pre-drilled. External fixation pins were placed from anterior to posterior in the tibia shaft. An additional transfixion pin was placed through the calcaneus. Pins were also placed in the first and fifth metatarsals. An external fixator was now constructed. Fluoroscopy was used to confirm appropriate pin placement Next attention was turned to traction with manipulation of the leg. The fracture was manipulated under fluoroscopy. Reasonable reduction was achieved. With the fracture held in reduced position, the external fixator was tightened. An additional bar was placed posterior to the heel to keep the heel off the bed and avoid pressure ulceration. Fluoroscopy confirmed a well-placed external fixation with well-aligned fractures. Sterile dressings were applied. The patient was awakened and transferred to Recovery in stable condition. The soft tissue was reevaluated. Patient did have swelling around the ankle and calf but compartments were soft and compressible with no signs of compartment syndrome. Additional CC's: Arvind Linder Assessment and Plan - Plan would start iv heparin neuro protocol w/o bolus if ok w/ortho today -d/w pts nurse to call ortho for okay.If not then when and will cont sq heparin w/ aspirin pr. check EKG stat for ?afib. swallow eval today if fails consult gi for possible peg. IR to do stent for carotids. will need final ortho surgery next week. pt-ot-st avoid hypotension.
[2018-09-19] MEDS: ceFAZolin 2 GM Premix Inj 2 GM/50 ML PIGGYBACK IV.SIG SCH (18:01)
[2018-09-19] MEDS: Heparin Drip 25,000 UNIT/250 ML BAG IV.CONT PRN (18:31)
[2018-09-19] MEDS: Labetalol HCl Inj 100 MG/20 ML Vial IV.PUSH PRN (21:32)
[2018-09-19 23:48] LABS: Hematocrit 29.4 % (35.0-46.0); Hemoglobin 9.9 gm/dL (11.6-15.3); Mean Corpuscular HGB Conc 33.6 % (32.0-36.0); Mean Corpuscular Hemoglobin 29.2 pg (27.0-34.0); Mean Corpuscular Volume 86.7 fL (80.0-100.0); Mean Platelet Volume 9.4 fL (7.0-11.0); Platelet Count 187 th/mm3 (150-450); Red Blood Count 3.39 mil/mm3 (4.00-5.30); Red Cell Distribution Width 12.9 % (11.6-17.2); White Blood Count 7.7 th/mm3 (4.0-11.0)
[2018-09-20 00:10] LABS: Activated Partial Thrombo Time 33.9 sec (23.4-31.7); Prothrombin Time 10.6 sec (9.8-11.6)
[2018-09-20] MEDS: Insulin NovoLOG Aspart Correctional Sugar Inj SQ SCH ×6 (00:32→21:30)
[2018-09-20] MEDS: Morphine Sulfate Inj 2 MG/ML Vial IV.PUSH PRN (00:45)
[2018-09-20] MEDS: ceFAZolin 2 GM Premix Inj 2 GM/50 ML PIGGYBACK IV.SIG SCH ×2 (01:18→09:17)
[2018-09-20] MEDS: Potassium Chlor 20 mEq Premix 20 MEQ/100 ML PIGGYBACK IV.SIG PRN ×4 (02:20→14:18)
[2018-09-20] MEDS: Morphine Inj 4 MG/ML Vial IV.PUSH PRN ×6 (03:50→15:36)
[2018-09-20] MEDS: Chlorhexidine Gluconate 2% 1 Pack (2 Cloths) TOPICAL SCH (04:30)
[2018-09-20] MEDS: Heparin - SQ 10,000 UNITS/ML Vial SQ SCH (05:45)
[2018-09-20 06:03] LABS: Baso # (Auto) 0.1 th/mm3 (0.0-0.2); Baso % (Auto) 1.2 % (0.0-2.0); Eos # (Auto) 0.1 th/mm3 (0.0-0.4); Hemoglobin 10.4 gm/dL (11.6-15.3); Lymph # (Auto) 1.3 th/mm3 (1.0-4.8); Mean Corpuscular HGB Conc 34.7 % (32.0-36.0); Mean Corpuscular Hemoglobin 29.6 pg (27.0-34.0); Mean Corpuscular Volume 85.4 fL (80.0-100.0); Mean Platelet Volume 9.7 fL (7.0-11.0); Mono # (Auto) 0.5 th/mm3 (0.0-0.9); Mono % (Auto) 7.6 % (0.0-8.0); Neut # (Auto) 4.7 th/mm3 (1.8-7.7); Neut % (Auto) 70.2 % (16.0-70.0); Platelet Count 200 th/mm3 (150-450); Red Blood Count 3.52 mil/mm3 (4.00-5.30); White Blood Count 6.7 th/mm3 (4.0-11.0)
[2018-09-20 06:30] LABS: Alanine Aminotransferase 23 U/L (10-53); Albumin 2.9 g/dL (3.4-5.0); Anion Gap 8 meq/L (5-15); Aspartate Aminotransferase 14 U/L (15-37); Blood Urea Nitrogen 5 mg/dL (7-18); Calcium 7.8 mg/dL (8.5-10.1); Carbon Dioxide 25.6 meq/L (21.0-32.0); Chloride 108 meq/L (98-107); Glomerular Filtration Rate Greater Than 89 mL/min (>89); Glucose,Random 183 mg/dL (74-106); Magnesium 1.7 mg/dL (1.5-2.5); Phosphorus 2.9 mg/dL (2.5-4.9); Potassium 3.7 meq/L (3.5-5.1); Sodium 142 meq/L (136-145)
[2018-09-20 06:33] LABS: Alkaline Phosphatase 85 U/L (45-117); Total Protein 6.8 g/dL (6.4-8.2)
[2018-09-20] MEDS: Famotidine PF Inj 20 MG/2 ML Vial IV.PUSH SCH ×2 (08:27→21:30)
[2018-09-20] MEDS: Aspirin 300 MG Supp RECTAL SCH (08:28)
[2018-09-20] MEDS: Senna/Docusate Sodium 8.6/50 MG Tablet PO SCH ×2 (08:29→21:29)
--- NOTE | 2018-09-20 08:32 | P.PNOP ---
Subjective Interval history: POD 1 s/p application of exfix to right ankle no changes. at bedside. states she is very restless and moving a lot Physical Exam Vital signs: Vital Signs 09/19/18 09:00 09/19/18 09:56 09/19/18 10:00 Temperature 98.2 F Pulse Rate 97 H 100 H 89 Respiratory Rate 27 H 27 H 20 Blood Pressure 156/79 H 167/78 H 148/74 H Pulse Oximetry 96 99 99 09/19/18 12:25 09/19/18 12:30 09/19/18 12:45 Temperature 97.2 F L Pulse Rate 107 H 104 H 87 Respiratory Rate 14 14 16 Blood Pressure 152/79 H 149/86 H 150/63 H Pulse Oximetry 96 96 100 09/19/18 13:00 09/19/18 13:15 09/19/18 13:28 Temperature 97 F L Pulse Rate 97 H 91 H Respiratory Rate 17 15 Blood Pressure 174/81 H 175/77 H Pulse Oximetry 98 98 98 09/19/18 13:38 09/19/18 14:00 09/19/18 15:00 Temperature Pulse Rate 98 H 93 H 93 H Respiratory Rate 0 L 18 20 Blood Pressure 144/71 H Pulse Oximetry 96 98 95 09/19/18 16:00 09/19/18 17:00 09/19/18 18:00 Temperature Pulse Rate 105 H 90 96 H Respiratory Rate 23 21 26 H Blood Pressure Pulse Oximetry 99 97 98 09/19/18 18:51 09/19/18 18:53 09/19/18 18:54 Temperature Pulse Rate 96 H 96 H 96 H Respiratory Rate 23 21 22 Blood Pressure 194/87 H 189/86 H 171/75 H Pulse Oximetry 96 96 96 09/19/18 19:01 09/19/18 19:23 09/19/18 20:00 Temperature Pulse Rate 94 H 95 H 100 H Respiratory Rate 22 22 20 Blood Pressure 165/88 H Pulse Oximetry 95 95 97 09/19/18 20:01 09/19/18 20:15 09/19/18 20:18 Temperature 99.4 F Pulse Rate 100 H 98 H 97 H Respiratory Rate 19 19 21 Blood Pressure 185/132 H 181/85 H Pulse Oximetry 98 97 97 09/19/18 20:32 09/19/18 21:02 09/19/18 21:04 Temperature Pulse Rate 93 H 97 H 103 H Respiratory Rate 22 22 21 Blood Pressure 181/81 H Pulse Oximetry 96 96 96 09/19/18 21:15 09/19/18 21:28 09/19/18 21:44 Temperature Pulse Rate 103 H 93 H 87 Respiratory Rate 18 21 20 Blood Pressure 189/87 H Pulse Oximetry 98 97 96 09/19/18 21:58 09/19/18 22:00 09/19/18 22:34 Temperature Pulse Rate 94 H 83 92 H Respiratory Rate 22 21 31 H Blood Pressure 183/81 H 171/77 H Pulse Oximetry 96 96 96 09/20/18 00:00 09/20/18 00:04 09/20/18 03:50 Temperature 99.0 F Pulse Rate 94 H 99 H 95 H Respiratory Rate 20 23 21 Blood Pressure 171/74 H Pulse Oximetry 96 97 96 09/20/18 04:00 09/20/18 04:04 Temperature 98.2 F Pulse Rate 92 H 92 H Respiratory Rate 19 20 Blood Pressure 157/75 H Pulse Oximetry 97 96 Intake & Output 09/19/18 09/20/18 09/20/18 18:59 06:59 18:59 Intake Total 2210 / 2210 1955 / 1955 Output Total 1205 / 1205 1600 / 1600 Balance 1005 / 1005 355 / 355 Weight 65.4 kg 64.7 kg Intake: IV 1710 / 1710 1355 / 1355 NS Inj 1,000 ML @ 70 mls/hr IV. 1000 / 1000 1000 / 1000 CONT .[id number] JULIAN Rx#:[id number] KCl 20 mEq Premix Inj 20 meq In 400 / 400 200 / 200 100 ml @ 50 mls/hr IV.SIG Q2H PRN Rx#:[id number] Ancef 1 GM Premix Inj 1 gm In 50 / 50 50 ml @ 0 mls/hr IV.SIG .STK- MED ONE Rx#:[id number] Ancef 2 GM Premix Inj 2 gm In 50 / 50 50 / 50 50 ml @ 100 mls/hr IV.SIG Q8H JULIAN Rx#:[id number] Keppra Inj 500 MG In NS Inj 100 210 / 210 105 / 105 ML @ 400 mls/hr IV.SIG Q12H JULIAN Rx#:[id number] Oral 0 / 0 600 / 600 Anesthesia Amount 500 / 500 Output: Estimated Blood Loss 5 / 5 Urine Amount (Catheter) 1200 / 1200 1600 / 1600 Indwelling Urethral Catheter 1200 / 1200 1600 / 1600 Other: Date of Last Bowel Movement 09/15/18 09/15/18 Narrative: RLE: dressings clean and dry. intact. +exfix. pin sites clean - Urinary Catheter Management Indwelling Urethral Catheter Cath placed during this visit: yes Reason for continuing: Hourly intake/output Insertion date: 09/16/18 Insertion time: 18:30 Results - Labs CBC & Chem 7: 09/20/18 05:19 09/20/18 05:19 Laboratory Results - last 24 hr 09/19/18 09/19/18 09/19/18 12:35 15:34 20:32 WBC RBC Hgb Hct MCV MCH MCHC RDW Plt Count MPV Neut % (Auto) Lymph % (Auto) [place] % (Auto) Eos % (Auto) Baso % (Auto) Neut # (Auto) Lymph # (Auto) [place] # (Auto) Eos # (Auto) Baso # (Auto) WBC Differential Differential Comment PT INR APTT Sodium Potassium Chloride Carbon Dioxide Anion Gap BUN Creatinine Estimated GFR POC Glucose 149 H 161 H 278 H Random Glucose Calcium Phosphorus Magnesium Total Bilirubin AST ALT Alkaline Phosphatase Total Protein Albumin 09/19/18 09/19/18 09/19/18 23:08 23:08 23:08 WBC 7.7 RBC 3.39 L Hgb 9.9 L Hct 29.4 L MCV 86.7 MCH 29.2 MCHC 33.6 RDW 12.9 Plt Count 187 MPV 9.4 Neut % (Auto) Lymph % (Auto) [place] % (Auto) Eos % (Auto) Baso % (Auto) Neut # (Auto) Lymph # (Auto) [place] # (Auto) Eos # (Auto) Baso # (Auto) WBC Differential Differential Comment PT 10.6 INR 1.0 APTT 33.9 H Sodium Potassium 3.3 L Chloride Carbon Dioxide Anion Gap BUN Creatinine Estimated GFR POC Glucose Random Glucose Calcium Phosphorus Magnesium Total Bilirubin AST ALT Alkaline Phosphatase Total Protein Albumin 09/20/18 09/20/18 09/20/18 00:24 04:47 05:19 WBC RBC Hgb Hct MCV MCH MCHC RDW Plt Count MPV Neut % (Auto) Lymph % (Auto) [place] % (Auto) Eos % (Auto) Baso % (Auto) Neut # (Auto) Lymph # (Auto) [place] # (Auto) Eos # (Auto) Baso # (Auto) WBC Differential Differential Comment PT INR APTT Sodium 142 Potassium 3.7 Chloride 108 H Carbon Dioxide 25.6 Anion Gap 8 BUN 5 L Creatinine 0.44 L Estimated GFR Greater than 89 POC Glucose 203 H 224 H Random Glucose 183 H Calcium 7.8 L Phosphorus 2.9 Magnesium 1.7 Total Bilirubin 0.4 AST 14 L ALT 23 Alkaline Phosphatase 85 Total Protein 6.8 D Albumin 2.9 L 09/20/18 09/20/18 09/20/18 05:19 05:19 08:18 WBC 6.7 RBC 3.52 L Hgb 10.4 L Hct 30.0 L MCV 85.4 MCH 29.6 MCHC 34.7 RDW 13.0 Plt Count 200 MPV 9.7 Neut % (Auto) 70.2 H Lymph % (Auto) 19.0 [place] % (Auto) 7.6 Eos % (Auto) 2.0 Baso % (Auto) 1.2 Neut # (Auto) 4.7 Lymph # (Auto) 1.3 [place] # (Auto) 0.5 Eos # (Auto) 0.1 Baso # (Auto) 0.1 WBC Differential . Differential Comment Auto diff final PT INR APTT 35.9 H Sodium Potassium Chloride Carbon Dioxide Anion Gap BUN Creatinine Estimated GFR POC Glucose 196 H Random Glucose Calcium Phosphorus Magnesium Total Bilirubin AST ALT Alkaline Phosphatase Total Protein Albumin - Imaging Impressions Ankle X-Ray 09/19/18 00:00 CONCLUSION: Distal tibia and fibular fractures again seen. - Procedures SP BEDSIDE REDUCTION OF RIGHT LE BY ORTHO 117 (1) Closed trimalleolar fracture of ankle Date of procedure: 09/19/18 Procedure: Closed reduction of right ankle with external fixation Anesthesia: LEYDA Surgeon: Arvind Linder MD Warehouse Engineer: REBECCA Pineda PA-C The surgical procedure was assisted by my physician geological survey field assistant. My P.A. presence was necessary throughout this case for the manipulation and positioning of the surgical extremity. My P.A. was assisting me throughout the duration of this procedure. The skill set of a physician geological survey field assistant was medically necessary to complete this procedure. During the surgical case the surgical services coordinator was working at the back table and the physician geological survey field assistant was directly assisting me. Operation and Findings: Implants used: Orthof[employer] Details of procedure: This patient sustained an injury resulting in unstable fractures of the right distal tibia and fibula. Patient was also having us acute stroke. She was not cleared for surgery until today. Attempt was made for closed reduction and splinting. Patient's fracture was very unstable and had recurrent dislocation. Patient was seen and evaluated preoperatively and found to have too much swelling to proceed with open reduction internal fixation. Risk and benefits of surgery were discussed in depth with patient and informed consent was confirmed. Surgical site was marked. Patient was brought to operating room and placed on the OR table. Patient was given IV sedation and GETA. Patient received IV antibiotics and timeout procedure was performed. Operative leg was prepped with alcohol followed by Hibiclens and draped in the usual sterile fashion. Timeout procedure was performed. The procedure began with placement of external fixation. Two percutaneous incisions were made over the tibia. Pin sites were pre-drilled. External fixation pins were placed from anterior to posterior in the tibia shaft. An additional transfixion pin was placed through the calcaneus. Pins were also placed in the first and fifth metatarsals. An external fixator was now constructed. Fluoroscopy was used to confirm appropriate pin placement Next attention was turned to traction with manipulation of the leg. The fracture was manipulated under fluoroscopy. Reasonable reduction was achieved. With the fracture held in reduced position, the external fixator was tightened. An additional bar was placed posterior to the heel to keep the heel off the bed and avoid pressure ulceration. Fluoroscopy confirmed a well-placed external fixation with well-aligned fractures. Sterile dressings were applied. The patient was awakened and transferred to Recovery in stable condition. The soft tissue was reevaluated. Patient did have swelling around the ankle and calf but compartments were soft and compressible with no signs of compartment syndrome. Additional CC's: Arvind Linder Assessment and Plan - Assessment and Plan 1) Right trimalleolar ankle fracture s/p exfix - POD 1 -NWB -maintain exfix -pin care BID and daily dressing changes of blisters with xeroform/4x4/JAYLENE -will need definitive surgery of ankle once cleared by neuro and skin is appropriate; next week.
--- NOTE | 2018-09-20 10:26 | P.PNIM ---
Subjective Interval history: 52-year-old female with past medical history of diabetes, tobacco abuse who tripped over a rake in the yard and presented to [facility] with right ankle pain. She was diagnosed with R trimalleolar fracture and preparations were being made for transfer to [facility] for eventual operative management. While in the [place] ED, she became agitated with aphasia and R facial droop. Stroke alert was called. CT brain was negative for hemorrhage. She had no head trauma. Initial preference was to avoid systemic TPA due to the fracture. Stat CTA brain and carotids were performed and she was transferred to [facility] for possible IR thrombectomy/ intraarterial lysis. CTA demonstrates proximal L MCA occlusion. Dr. Dunlap states images were reviewed by Dr. Mora and patient was not a candidate for IR intervention due to carotid atherosclerotic disease with significant stenosis. At that point, decision was made to proceed with systemic TPA which has been administered. Patient has persistent expressive aphasia. No prior h/o stroke or TIA. No seizure. She was drinking tonight with friends before this happened, but denies daily EtOH. SUBJ 09/16 lying in bed somnolent aphasic. Weaker on the right side. Follows commands on bilateral upper and lower extremities. Family at the bedside has noted that patient had not spoken any words today. 09/17: Patient is more awake today following commands still aphasic. Discussed with vascular surgery yesterday. Recommends left carotid stenting by IR due to intrathoracic carotid bifurcation. Patient not cleared by neurologist for IV heparin due to risk of hemorrhagic conversion Discussed with Dr. Fierro and Dr. Delvalle. Patient will need stenting of bilateral carotids by IR. However this will be planned as a staged procedure with probable stenting of one side on or Sunday followed by IV heparin for 24 hours. Stenting of the other carotid will be performed after [address] Delvalle prefers to wait at least until to reevaluate for stenting and IV heparin. 09-28 TRANSFERRED TO OUR SERVICE TODAY HAD RIGHT ANKLE REDUCED BY ORTHO TODAY THEY WANT TO REPAIR IT TOMORROW NEEDS NEUROLOGICAL CLEARANCE STILL VERY APHASIC AND NONVERBAL AT THIS TIME FOLLOWS COMMANDS BETO PÉREZ RN AND PT AND FAMILY NEEDS PAIN CONTROL 11 SP EXTERNAL FIXATION OF RIGHT ANKLE BY SURGERY REMAINS NONVERBAL AM LABS NEEDS BL CAROTID STENTING BY IR 09-20 DW IR TO HAVE STENT ON SUNDAY NEEDS BL CAROTID STENTING TOLERATING PUREED NECTAR THICK DIET OK OUT OF ICU CHANGE ASPIRIN TO PO ON HEPARIN DRIP DW RN AND PATIENT AND IR Physical Exam Vital signs: Vital Signs 09/19/18 12:25 09/19/18 12:30 09/19/18 12:45 Temperature 97.2 F L Pulse Rate 107 H 104 H 87 Respiratory Rate 14 14 16 Blood Pressure 152/79 H 149/86 H 150/63 H Pulse Oximetry 96 96 100 09/19/18 13:00 09/19/18 13:15 09/19/18 13:28 Temperature 97 F L Pulse Rate 97 H 91 H Respiratory Rate 17 15 Blood Pressure 174/81 H 175/77 H Pulse Oximetry 98 98 98 09/19/18 13:38 09/19/18 14:00 09/19/18 15:00 Temperature Pulse Rate 98 H 93 H 93 H Respiratory Rate 0 L 18 20 Blood Pressure 144/71 H Pulse Oximetry 96 98 95 09/19/18 16:00 09/19/18 17:00 09/19/18 18:00 Temperature Pulse Rate 105 H 90 96 H Respiratory Rate 23 21 26 H Blood Pressure Pulse Oximetry 99 97 98 09/19/18 18:51 09/19/18 18:53 09/19/18 18:54 Temperature Pulse Rate 96 H 96 H 96 H Respiratory Rate 23 21 22 Blood Pressure 194/87 H 189/86 H 171/75 H Pulse Oximetry 96 96 96 09/19/18 19:01 09/19/18 19:23 09/19/18 20:00 Temperature Pulse Rate 94 H 95 H 100 H Respiratory Rate 22 22 20 Blood Pressure 165/88 H Pulse Oximetry 95 95 97 09/19/18 20:01 09/19/18 20:15 09/19/18 20:18 Temperature 99.4 F Pulse Rate 100 H 98 H 97 H Respiratory Rate 19 19 21 Blood Pressure 185/132 H 181/85 H Pulse Oximetry 98 97 97 09/19/18 20:32 09/19/18 21:02 09/19/18 21:04 Temperature Pulse Rate 93 H 97 H 103 H Respiratory Rate 22 22 21 Blood Pressure 181/81 H Pulse Oximetry 96 96 96 09/19/18 21:15 09/19/18 21:28 09/19/18 21:44 Temperature Pulse Rate 103 H 93 H 87 Respiratory Rate 18 21 20 Blood Pressure 189/87 H Pulse Oximetry 98 97 96 09/19/18 21:58 09/19/18 22:00 09/19/18 22:34 Temperature Pulse Rate 94 H 83 92 H Respiratory Rate 22 21 31 H Blood Pressure 183/81 H 171/77 H Pulse Oximetry 96 96 96 09/20/18 00:00 09/20/18 00:04 09/20/18 03:50 Temperature 99.0 F Pulse Rate 94 H 99 H 95 H Respiratory Rate 20 23 21 Blood Pressure 171/74 H Pulse Oximetry 96 97 96 09/20/18 04:00 09/20/18 04:04 09/20/18 04:34 Temperature 98.2 F Pulse Rate 92 H 92 H 92 H Respiratory Rate 19 20 18 Blood Pressure 157/75 H 146/85 H Pulse Oximetry 97 96 96 09/20/18 05:00 09/20/18 05:04 09/20/18 05:34 Temperature Pulse Rate 91 H 89 91 H Respiratory Rate 19 18 22 Blood Pressure 137/91 H 150/75 H Pulse Oximetry 97 96 96 09/20/18 06:00 09/20/18 06:04 09/20/18 07:00 Temperature Pulse Rate 95 H 96 H 89 Respiratory Rate 23 20 20 Blood Pressure 169/81 H Pulse Oximetry 96 96 96 09/20/18 07:14 09/20/18 08:00 09/20/18 08:14 Temperature 99.1 F Pulse Rate 93 H 95 H 103 H Respiratory Rate 22 18 19 Blood Pressure 180/77 H 164/77 H 164/77 H Pulse Oximetry 96 95 94 L 09/20/18 09:00 Temperature Pulse Rate 95 H Respiratory Rate 17 Blood Pressure Pulse Oximetry 94 L Intake & Output 09/19/18 09/20/18 09/20/18 18:59 06:59 18:59 Intake Total 2210 / 2210 1955 / 1955 Output Total 1205 / 1205 1600 / 1600 Balance 1005 / 1005 355 / 355 Weight 65.4 kg 64.7 kg Intake: IV 1710 / 1710 1355 / 1355 NS Inj 1,000 ML @ 70 mls/hr IV. 1000 / 1000 1000 / 1000 CONT .[id number] [facility] Rx#:[id number] KCl 20 mEq Premix Inj 20 meq In 400 / 400 200 / 200 100 ml @ 50 mls/hr IV.SIG Q2H PRN Rx#:[id number] Ancef 1 GM Premix Inj 1 gm In 50 / 50 50 ml @ 0 mls/hr IV.SIG .K- MED ONE Rx#:[id number] Ancef 2 GM Premix Inj 2 gm In 50 / 50 50 / 50 50 ml @ 100 mls/hr IV.SIG Q8H JULIAN Rx#:[id number] Keppra Inj 500 MG In NS Inj 100 210 / 210 105 / 105 ML @ 400 mls/hr IV.SIG Q12H JULIAN Rx#:[id number] Oral 0 / 0 600 / 600 Anesthesia Amount 500 / 500 Output: Estimated Blood Loss 5 / 5 Urine Amount (Catheter) 1200 / 1200 1600 / 1600 Indwelling Urethral Catheter 1200 / 1200 1600 / 1600 Other: Date of Last Bowel Movement 09/15/18 09/15/18 09/17/18 Narrative: GENERAL: Well-nourished, well-developed female patient who is aphasic, but alert awake-FOLLOWS COMMANDS BUT TOTALLY APHASIC AND NONVERBAL AT THIS TIME SKIN: Warm and dry. HEAD: Atraumatic. Normocephalic. EYES: Pupils equal and round. No scleral icterus. No injection or drainage. ENT: No nasal bleeding or discharge. Mucous membranes pink and moist. NECK: Trachea midline. No JVD. CARDIOVASCULAR: Regular rate and rhythm, sinus rhythm on the monitor. No murmurs rubs or gallops. RESPIRATORY: No accessory muscle use. Clear to auscultation. Breath sounds equal bilaterally. On room air GASTROINTESTINAL: Abdomen soft, non-tender, nondistended. MUSCULOSKELETAL: Extremities without clubbing, cyanosis. Posterior splint in place RLE, knee immobilizer in place. Normal cap refill. RIGHT LE WITH EXTERNAL FIXATION IN PLACE NEUROLOGICAL: Awake and alert, remains aphasic. No pronator drift. Strength 4/5 RUE and sensation intact. 5/5 hip flexor bilaterally, 5/5 L plantar and dorsiflexion. - Urinary Catheter Management Indwelling Urethral Catheter Cath placed during this visit: yes Reason for continuing: Hourly intake/output Insertion date: 09/16/18 Insertion time: 18:30 Results - Labs CBC & Chem 7: 09/20/18 05:19 09/20/18 05:19 Laboratory Results - last 24 hr 1109/19/18 09/19/18 12:35 15:34 20:32 WBC RBC Hgb Hct MCV MCH MCHC RDW Plt Count MPV Neut % (Auto) Lymph % (Auto) [place] % (Auto) Eos % (Auto) Baso % (Auto) Neut # (Auto) Lymph # (Auto) [place] # (Auto) Eos # (Auto) Baso # (Auto) WBC Differential Differential Comment PT INR APTT Sodium Potassium Chloride Carbon Dioxide Anion Gap BUN Creatinine Estimated GFR POC Glucose 149 H 161 H 278 H Random Glucose Calcium Phosphorus Magnesium Total Bilirubin AST ALT Alkaline Phosphatase Total Protein Albumin 09/19/18 09/19/18 09/19/18 23:08 23:08 23:08 WBC 7.7 RBC 3.39 L Hgb 9.9 L Hct 29.4 L MCV 86.7 MCH 29.2 MCHC 33.6 RDW 12.9 Plt Count 187 MPV 9.4 Neut % (Auto) Lymph % (Auto) [place] % (Auto) Eos % (Auto) Baso % (Auto) Neut # (Auto) Lymph # (Auto) [place] # (Auto) Eos # (Auto) Baso # (Auto) WBC Differential Differential Comment PT 10.6 INR 1.0 APTT 33.9 H Sodium Potassium 3.3 L Chloride Carbon Dioxide Anion Gap BUN Creatinine Estimated GFR POC Glucose Random Glucose Calcium Phosphorus Magnesium Total Bilirubin AST ALT Alkaline Phosphatase Total Protein Albumin 09/20/18 09/20/18 09/20/18 00:24 04:47 05:19 WBC RBC Hgb Hct MCV MCH MCHC RDW Plt Count MPV Neut % (Auto) Lymph % (Auto) [place] % (Auto) Eos % (Auto) Baso % (Auto) Neut # (Auto) Lymph # (Auto) [place] # (Auto) Eos # (Auto) Baso # (Auto) WBC Differential Differential Comment PT INR APTT Sodium 142 Potassium 3.7 Chloride 108 H Carbon Dioxide 25.6 Anion Gap 8 BUN 5 L Creatinine 0.44 L Estimated GFR Greater than 89 POC Glucose 203 H 224 H Random Glucose 183 H Calcium 7.8 L Phosphorus 2.9 Magnesium 1.7 Total Bilirubin 0.4 AST 14 L ALT 23 Alkaline Phosphatase 85 Total Protein 6.8 D Albumin 2.9 L 09/20/18 09/20/18 09/20/18 05:19 05:19 08:18 WBC 6.7 RBC 3.52 L Hgb 10.4 L Hct 30.0 L MCV 85.4 MCH 29.6 MCHC 34.7 RDW 13.0 Plt Count 200 MPV 9.7 Neut % (Auto) 70.2 H Lymph % (Auto) 19.0 [place] % (Auto) 7.6 Eos % (Auto) 2.0 Baso % (Auto) 1.2 Neut # (Auto) 4.7 Lymph # (Auto) 1.3 [place] # (Auto) 0.5 Eos # (Auto) 0.1 Baso # (Auto) 0.1 WBC Differential . Differential Comment Auto diff final PT INR APTT 35.9 H Sodium Potassium Chloride Carbon Dioxide Anion Gap BUN Creatinine Estimated GFR POC Glucose 196 H Random Glucose Calcium Phosphorus Magnesium Total Bilirubin AST ALT Alkaline Phosphatase Total Protein Albumin - Imaging Impressions Ankle X-Ray 09/19/18 00:00 CONCLUSION: Distal tibia and fibular fractures again seen. - Procedures SP BEDSIDE REDUCTION OF RIGHT LE BY ORTHO 09-18 (1) Closed trimalleolar fracture of ankle Date of procedure: 09/19/18 Procedure: Closed reduction of right ankle with external fixation Anesthesia: GETA Surgeon: Arvind Linder MD County Treasurer: REBECCA Pineda PA-C The surgical procedure was assisted by my physician culinary assistant. My P.A. presence was necessary throughout this case for the manipulation and positioning of the surgical extremity. My P.A. was assisting me throughout the duration of this procedure. The skill set of a physician culinary assistant was medically necessary to complete this procedure. During the surgical case the glass technologist was working at the back table and the physician culinary assistant was directly assisting me. Operation and Findings: Implants used: Orthofix Details of procedure: This patient sustained an injury resulting in unstable fractures of the right distal tibia and fibula. Patient was also having us acute stroke. She was not cleared for surgery until today. Attempt was made for closed reduction and splinting. Patient's fracture was very unstable and had recurrent dislocation. Patient was seen and evaluated preoperatively and found to have too much swelling to proceed with open reduction internal fixation. Risk and benefits of surgery were discussed in depth with patient and informed consent was confirmed. Surgical site was marked. Patient was brought to operating room and placed on the OR table. Patient was given IV sedation and GETA. Patient received IV antibiotics and timeout procedure was performed. Operative leg was prepped with alcohol followed by Hibiclens and draped in the usual sterile fashion. Timeout procedure was performed. The procedure began with placement of external fixation. Two percutaneous incisions were made over the tibia. Pin sites were pre-drilled. External fixation pins were placed from anterior to posterior in the tibia shaft. An additional transfixion pin was placed through the calcaneus. Pins were also placed in the first and fifth metatarsals. An external fixator was now constructed. Fluoroscopy was used to confirm appropriate pin placement Next attention was turned to traction with manipulation of the leg. The fracture was manipulated under fluoroscopy. Reasonable reduction was achieved. With the fracture held in reduced position, the external fixator was tightened. An additional bar was placed posterior to the heel to keep the heel off the bed and avoid pressure ulceration. Fluoroscopy confirmed a well-placed external fixation with well-aligned fractures. Sterile dressings were applied. The patient was awakened and transferred to Recovery in stable condition. The soft tissue was reevaluated. Patient did have swelling around the ankle and calf but compartments were soft and compressible with no signs of compartment syndrome. Additional CC's: Arvind Linder Assessment and Plan - Plan Acute ischemic left MCA stroke Bilateral carotid stenosis s/p TPA 02:16 on 09/15. No antiplatelets or anticoagulants for 24 hours post TPA. Started on ASA therapy. F/u CT brain 24 hours post-TPA. -Evolving left MCA infarct Neurochecks and BP monitoring in [facility]. Maintain SBP <180/100 due to TPA, avoid hypotension with carotid disease. 2D Echo, fasting lipid, hgbA1c, telemetry monitoring (currently sinus rhythm) Neurology Dr. Arriaga. Not cleared for full anticoagulation Vascular surgery consult CTA neck High-grade stenosis at the origin of the right common carotid artery and moderately severe stenosis at the origin of the left common carotid artery. 50-60% carotid bifurcation stenosis also present bilaterally. Consult IR for Left carotid stenting. Vascular surgery Dr. Jack recommends anticoagulation in 24 hours if cleared by neurosurgery WILL NEED BL CAROTID STENTING STARTING SUNDAY- IR RESP: Tobacco abuse Tobacco cessation counseling discussed. On room air. CV: HTN Labetalol/hydralazine/cardene prn SBP <180/100 for first 24 hours post TPA. HLD pravastatin 40 mg daily when PO permitted GI: NPO until cleared by speech. Speech therapy to evaluate swallow and speech FEN/RENAL: Normal creatinine. Voiding. Replace electrolytes as indicated ID: Monitor for signs and symptoms of infection HEME: Monitor CBC ENDO: Diabetes mellitus, with acute hyperglycemia Hold oral anti-hypoglycemics including metformin Monitor bedside glucose ACHS and low dose sliding scale MSK: Trimalleolar ankle fracture Neurovascular checks, maintain splint and knee immobilizer. Eventual operative management when stabilized from standpoint of stroke. SP BEDSIDE REDUCTION ON 09-18 BY ORTHO - THEY WANT TO REPAIR ON 09-19-- HAD BEEN CLEARED BY NEUROLOGY SP REPAIR ON 09-19 PROPH: SCD for DVT prophylaxis. No pharmacologic DVT prophylaxis for 24 hours post TPA , start sq heparin today. Famotidine 20 mill grams IV every 12 hours for stress ulcer prophylaxis. ACCESS: Peripheral IV. No central or arterial sticks for 24 hours post TPA Code Status: FULL CODE Discussed Condition With: RN AND PT AND IR AND FAMILY Discharge Planning: PENDING ORTHO AND NEUROLOGICAL CLEARANCE AND IR CLEARANCE
[2018-09-20] MEDS ORDERED: Dextrose 50% in Water 50 ML Vial IV.PUSH PRN (10:28)
[2018-09-20] MEDS: Aspirin 325 MG Tablet PO SCH (11:44)
[2018-09-20] MEDS: Sod Chloride 0.9% Inj 1,000 ML IV.CONT SCH ×2 (11:45→13:07)
--- NOTE | 2018-09-20 16:43 | ECG ---
Date Performed: 09/19/2018 Time Performed: 15:47:06 PTAGE: 52 years EKG: Sinus tachycardia. Left axis deviation Possible left ventricular hypertrophy Anterolateral ST-T changes are probably due to ventricular hypertrophy Since the previous tracing, no significant c geralde noted Abnormal ECG PREVIOUS TRACING : 09/17/2018 11.19 DOCTOR: Lulu Umaña Interpretating Date/Time 09/20/2018 16:40:40
[2018-09-20] MEDS: levETIRAcetam 500 MG Tablet PO SCH (21:30)
[2018-09-20] MEDS: Heparin Drip 25,000 UNIT/250 ML BAG IV.CONT PRN (21:50)
[2018-09-20] MEDS: hydrALAZINE HCl Inj 20 MG/ML Vial IV.PUSH PRN (22:09)
[2018-09-21] MEDS: Sod Chloride 0.9% Inj 1,000 ML IV.CONT SCH ×2 (06:05→17:19)
[2018-09-21] MEDS: Morphine Inj 4 MG/ML Vial IV.PUSH PRN ×4 (07:05→21:13)
[2018-09-21] MEDS: Aspirin 325 MG Tablet PO SCH (08:17)
[2018-09-21] MEDS: Senna/Docusate Sodium 8.6/50 MG Tablet PO SCH ×2 (08:18→21:12)
[2018-09-21] MEDS: amLODIPine 5 MG Tablet PO SCH (08:19)
[2018-09-21] MEDS: Famotidine PF Inj 20 MG/2 ML Vial IV.PUSH SCH ×2 (08:19→21:12)
[2018-09-21] MEDS: Insulin NovoLOG Aspart Correctional Sugar Inj SQ SCH ×4 (08:20→21:12)
[2018-09-21] MEDS: levETIRAcetam 500 MG Tablet PO SCH (10:47)
--- NOTE | 2018-09-21 14:29 | P.PNIM ---
Subjective Interval history: Nursing denies any acute issues overnight. Patient herself is nonverbal from her stroke but does maintain good eye contact and a maintains ability to have facial expressions. When asked her if she has any nausea she nods no. When asked if she wants to get out of here soon as she can she nods yes. It [birth year] her birthday, family is present at the bedside celebrating. Physical Exam Vital signs: Vital Signs 09/20/18 15:00 09/20/18 15:14 09/20/18 16:00 Temperature 98.7 F Pulse Rate 96 H 96 H 91 H Respiratory Rate 18 16 15 Blood Pressure 167/84 H 167/84 H Pulse Oximetry 96 97 96 09/20/18 16:14 09/20/18 17:00 09/20/18 17:14 Temperature Pulse Rate 95 H 103 H 98 H Respiratory Rate 17 25 H 20 Blood Pressure 171/84 H 158/115 H Pulse Oximetry 97 98 97 09/20/18 17:21 09/20/18 18:45 09/20/18 19:00 Temperature Pulse Rate 101 H 98 H 95 H Respiratory Rate 25 H 18 Blood Pressure 160/65 H 163/94 H Pulse Oximetry 97 09/20/18 22:00 09/20/18 23:31 09/21/18 00:00 Temperature 98.6 F 98.4 F Pulse Rate 96 H 113 H 106 H Respiratory Rate 20 18 Blood Pressure 185/86 H 134/74 Pulse Oximetry 96 98 09/21/18 04:00 09/21/18 07:31 09/21/18 10:54 Temperature 98.2 F 99.2 F 99.3 F Pulse Rate 91 H 86 96 H Respiratory Rate 20 20 20 Blood Pressure 156/84 H 141/72 H 151/85 H Pulse Oximetry 96 96 96 09/21/18 12:09 Temperature 98.4 F Pulse Rate 100 H Respiratory Rate 20 Blood Pressure 148/92 H Pulse Oximetry 96 Intake & Output 09/20/18 09/21/18 09/21/18 18:59 06:59 18:59 Intake Total 1250 / 1250 1370 / 1370 Output Total 1450 / 1450 Balance 1250 / 1250 -80 / -80 Weight 56 kg Intake: IV 1250 / 1250 1250 / 1250 Heparin/D5W 25,000 U/250 mL 25, 250 / 250 000 unit In 250 ml @ Per Protocol IV.CONT TITRATE PRN Rx #:[id number] NS Inj 1,000 ML @ 70 mls/hr IV. 1000 / 1000 1000 / 1000 CONT .[id number] JULIAN Rx#:[id number] KCl 20 mEq Premix Inj 20 meq In 200 / 200 100 ml @ 50 mls/hr IV.SIG Q2H PRN Rx#:[id number] Ancef 2 GM Premix Inj 2 gm In 50 / 50 50 ml @ 100 mls/hr IV.SIG Q8H JULIAN Rx#:[id number] Oral 0 / 0 120 / 120 Output: Urine Amount (Catheter) 1450 / 1450 Indwelling Urethral Catheter 1450 / 1450 Other: Date of Last Bowel Movement 09/17/18 09/17/18 Narrative: Nonverbal Heart sounds regular rate rhythm, no murmurs Clear lungs bilaterally, unlabored breathing Maintaining eye contact, no facial droop - Urinary Catheter Management Indwelling Urethral Catheter Cath placed during this visit: yes Reason for continuing: Chronic Urinary Retention Insertion date: 09/16/18 Insertion time: 18:30 Results - Labs CBC & Chem 7: 09/20/18 05:19 09/20/18 20:17 Laboratory Results - last 24 hr 09/20/18 09/20/18 09/20/18 17:23 20:17 20:17 APTT 37.5 H Potassium 3.4 L POC Glucose 221 H 09/20/18 09/21/18 09/21/18 21:00 03:45 07:34 APTT 40.0 H Potassium POC Glucose 208 H 242 H 09/21/18 09/21/18 10:01 12:03 APTT 41.5 H Potassium POC Glucose 202 H - Procedures SP BEDSIDE REDUCTION OF RIGHT LE BY ORTHO 11-7 (1) Closed trimalleolar fracture of ankle Date of procedure: 09/19/18 Procedure: Closed reduction of right ankle with external fixation Anesthesia: GETA Surgeon: Arvind Linder MD Automatic Hemmer: REBECCA Pineda PA-C The surgical procedure was assisted by my physician assistant manager trainee. My P.A. presence was necessary throughout this case for the manipulation and positioning of the surgical extremity. My P.A. was assisting me throughout the duration of this procedure. The skill set of a physician assistant manager trainee was medically necessary to complete this procedure. During the surgical case the surgical corsetier was working at the back table and the physician assistant manager trainee was directly assisting me. Operation and Findings: Implants used: Orthofix Details of procedure: This patient sustained an injury resulting in unstable fractures of the right distal tibia and fibula. Patient was also having us acute stroke. She was not cleared for surgery until today. Attempt was made for closed reduction and splinting. Patient's fracture was very unstable and had recurrent dislocation. Patient was seen and evaluated preoperatively and found to have too much swelling to proceed with open reduction internal fixation. Risk and benefits of surgery were discussed in depth with patient and informed consent was confirmed. Surgical site was marked. Patient was brought to operating room and placed on the OR table. Patient was given IV sedation and GETA. Patient received IV antibiotics and timeout procedure was performed. Operative leg was prepped with alcohol followed by Hibiclens and draped in the usual sterile fashion. Timeout procedure was performed. The procedure began with placement of external fixation. Two percutaneous incisions were made over the tibia. Pin sites were pre-drilled. External fixation pins were placed from anterior to posterior in the tibia shaft. An additional transfixion pin was placed through the calcaneus. Pins were also placed in the first and fifth metatarsals. An external fixator was now constructed. Fluoroscopy was used to confirm appropriate pin placement Next attention was turned to traction with manipulation of the leg. The fracture was manipulated under fluoroscopy. Reasonable reduction was achieved. With the fracture held in reduced position, the external fixator was tightened. An additional bar was placed posterior to the heel to keep the heel off the bed and avoid pressure ulceration. Fluoroscopy confirmed a well-placed external fixation with well-aligned fractures. Sterile dressings were applied. The patient was awakened and transferred to Recovery in stable condition. The soft tissue was reevaluated. Patient did have swelling around the ankle and calf but compartments were soft and compressible with no signs of compartment syndrome. Additional CC's: Arvind Linder Assessment and Plan - Plan 53-year-old white female who was originally admitted with a trimalleolar ankle fracture to the [facility] emergency department, then developed strokelike symptoms and underwent TPA on 09/15. Neurology has been following. Patient ultimately underwent initial stage repair on 09/19/[address] over right ankle and foot. Involving infarction noted on left MCA distribution on follow-up CT scan. 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 -Patient is currently asymptomatic with no evidence of dysphagia lusoria -Status post TPA administration on 09/15 On aspirin Neurology following Anticipate carotid artery bilateral stenting on 09/23, vascular surgery following, recommending medical management, heparin for now until stenting to be performed -no afib on ekgs HLD Crushed pills for now per speech therapy Switching from pravastatin to high-dose Lipitor Diabetes mellitus, with acute hyperglycemia Monitor bedside glucose ACHS and low dose sliding scale Trimalleolar ankle fracture Neurovascular checks, maintain splint and s/p closed reduction w/ exfix. anticipated further surgery to remove ex-fix in coming week once cleared w/ neurology Famotidine Heparin
[2018-09-21] MEDS: Heparin Drip 25,000 UNIT/250 ML BAG IV.CONT PRN (17:21)
[2018-09-22] MEDS: Morphine Inj 4 MG/ML Vial IV.PUSH PRN ×3 (04:22→21:12)
[2018-09-22] MEDS: Sod Chloride 0.9% Inj 1,000 ML IV.CONT SCH ×2 (06:21→20:01)
[2018-09-22] MEDS: amLODIPine 5 MG Tablet PO SCH (08:45)
[2018-09-22] MEDS: Aspirin 325 MG Tablet PO SCH (08:45)
[2018-09-22] MEDS: Senna/Docusate Sodium 8.6/50 MG Tablet PO SCH ×2 (08:46→21:24)
[2018-09-22] MEDS: Famotidine PF Inj 20 MG/2 ML Vial IV.PUSH SCH ×2 (08:46→21:34)
[2018-09-22] MEDS: Insulin NovoLOG Aspart Correctional Sugar Inj SQ SCH ×4 (08:46→21:33)
--- NOTE | 2018-09-22 12:03 | P.PNIM ---
Subjective Interval history: Nursing denies any acute changes overnight for some possible A. fib overnight. is at the bedside today. No new complaints today. Physical Exam Vital signs: Vital Signs 09/21/18 12:09 09/21/18 13:00 09/21/18 14:00 Temperature 98.4 F Pulse Rate 100 H 92 H 90 Respiratory Rate 20 Blood Pressure 148/92 H Pulse Oximetry 96 09/21/18 15:51 09/21/18 17:11 09/21/18 19:00 Temperature 98.8 F Pulse Rate 83 98 H 86 Respiratory Rate 20 Blood Pressure 147/91 H Pulse Oximetry 97 09/21/18 20:00 09/21/18 21:00 09/21/18 22:00 Temperature 98.3 F Pulse Rate 85 81 95 H Respiratory Rate 20 Blood Pressure 140/85 Pulse Oximetry 97 09/21/18 23:00 09/22/18 00:00 09/22/18 01:00 Temperature 98.3 F Pulse Rate 99 H 85 80 Respiratory Rate 16 Blood Pressure 156/76 H Pulse Oximetry 98 09/22/18 02:00 09/22/18 03:00 09/22/18 04:00 Temperature 99.3 F Pulse Rate 89 97 H 87 Respiratory Rate 17 Blood Pressure 152/87 H Pulse Oximetry 98 09/22/18 04:25 09/22/18 05:00 09/22/18 06:00 Temperature Pulse Rate 78 79 Respiratory Rate 16 Blood Pressure Pulse Oximetry 09/22/18 07:00 09/22/18 08:00 09/22/18 08:34 Temperature 98.8 F Pulse Rate 81 92 H 89 Respiratory Rate 18 Blood Pressure 155/85 H Pulse Oximetry 96 09/22/18 09:00 09/22/18 10:00 09/22/18 11:00 Temperature Pulse Rate 96 H 86 86 Respiratory Rate Blood Pressure Pulse Oximetry Intake & Output 09/21/18 09/22/18 09/22/18 18:59 06:59 18:59 Intake Total 1490 / 1490 1480 / 1480 Output Total 820 / 820 800 / 800 Balance 670 / 670 680 / 680 Weight 56 kg Intake: IV 1250 / 1250 1000 / 1000 Heparin/D5W 25,000 U/250 mL 25, 250 / 250 000 unit In 250 ml @ Per Protocol IV.CONT TITRATE PRN Rx #:[id number] NS Inj 1,000 ML @ 42 mls/hr IV. 1000 / 1000 1000 / 1000 CONT .[id number] JULIAN Rx#:[id number] Oral 240 / 240 480 / 480 Output: Urine 820 / 820 Urine Amount (Catheter) 800 / 800 Indwelling Urethral Catheter 800 / 800 Other: Date of Last Bowel Movement 09/17/18 Narrative: 5/5 proximal upper and lower extremity strength grossly bilaterally including fist shop teacher Still aphasic Extraocular motions intact Able to follow motor commands Heart sounds demonstrate irregular rhythm, regular rate Clear lungs bilaterally, unlabored breathing - Urinary Catheter Management Indwelling Urethral Catheter Cath placed during this visit: yes Reason for continuing: Chronic Urinary Retention Insertion date: 09/16/18 Insertion time: 18:30 Results - Labs CBC & Chem 7: 09/20/18 05:19 09/20/18 20:17 Laboratory Results - last 24 hr 09/21/18 09/21/18 09/21/18 12:03 17:10 21:07 APTT POC Glucose 202 H 161 H 250 H 09/22/18 09/22/18 08:03 08:41 APTT 42.6 H POC Glucose 213 H - Procedures SP BEDSIDE REDUCTION OF RIGHT LE BY ORTHO 11-7 (1) Closed trimalleolar fracture of ankle Date of procedure: 09/19/18 Procedure: Closed reduction of right ankle with external fixation Anesthesia: GETA Surgeon: Arvind Linder MD Social Studies Teacher: REBECCA Pineda PA-C The surgical procedure was assisted by my physician physiotherapist's assistant. My P.A. presence was necessary throughout this case for the manipulation and positioning of the surgical extremity. My P.A. was assisting me throughout the duration of this procedure. The skill set of a physician physiotherapist's assistant was medically necessary to complete this procedure. During the surgical case the certified ophthalmic surgical assistant was working at the back table and the physician physiotherapist's assistant was directly assisting me. Operation and Findings: Implants used: [employer] Details of procedure: This patient sustained an injury resulting in unstable fractures of the right distal tibia and fibula. Patient was also having us acute stroke. She was not cleared for surgery until today. Attempt was made for closed reduction and splinting. Patient's fracture was very unstable and had recurrent dislocation. Patient was seen and evaluated preoperatively and found to have too much swelling to proceed with open reduction internal fixation. Risk and benefits of surgery were discussed in depth with patient and informed consent was confirmed. Surgical site was marked. Patient was brought to operating room and placed on the OR table. Patient was given IV sedation and GETA. Patient received IV antibiotics and timeout procedure was performed. Operative leg was prepped with alcohol followed by Hibiclens and draped in the usual sterile fashion. Timeout procedure was performed. The procedure began with placement of external fixation. Two percutaneous incisions were made over the tibia. Pin sites were pre-drilled. External fixation pins were placed from anterior to posterior in the tibia shaft. An additional transfixion pin was placed through the calcaneus. Pins were also placed in the first and fifth metatarsals. An external fixator was now constructed. Fluoroscopy was used to confirm appropriate pin placement Next attention was turned to traction with manipulation of the leg. The fracture was manipulated under fluoroscopy. Reasonable reduction was achieved. With the fracture held in reduced position, the external fixator was tightened. An additional bar was placed posterior to the heel to keep the heel off the bed and avoid pressure ulceration. Fluoroscopy confirmed a well-placed external fixation with well-aligned fractures. Sterile dressings were applied. The patient was awakened and transferred to Recovery in stable condition. The soft tissue was reevaluated. Patient did have swelling around the ankle and calf but compartments were soft and compressible with no signs of compartment syndrome. Additional CC's: Arvind Linder Assessment and Plan - Plan 53-year-old white female who was originally admitted with a trimalleolar ankle fracture to [facility] emergency department, then developed strokelike symptoms and underwent TPA on 09/15. Neurology has been following. Patient ultimately underwent initial stage repair on 09/19/[address] over right ankle and foot. Involving infarction noted on left MCA distribution on follow-up CT scan. 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 -Status post TPA administration on 09/15 On aspirin Neurology following Vascular surgery has recommended a left carotid stent instead of a carotid endarterectomy due to anatomic variance, however orthopedics likely will need to address the ex-fix prior to operation given that interventional radiology has clarified that the patient will need to be placed on uninterrupted Plavix once the stent is placed -no afib on ekgs, will repeat EKG - shows SR w/ PACs HLD -Crushed pills for now per speech therapy -high-dose Lipitor Diabetes mellitus, with acute hyperglycemia -Monitor bedside glucose ACHS and low dose sliding scale Trimalleolar ankle fracture -Neurovascular checks, maintain splint and s/p closed reduction w/ exfix. -anticipated further surgery to remove ex-fix in coming week once cleared w/ neurology Famotidine Heparin Addendum: Discussed w/ covering ortho MD, would not recommend holding off on carotid stenting including initiating plavix. would need maybe up to another week for edema improvement before ex-fix is ready for removal.
[2018-09-22] MEDS: Heparin Drip 25,000 UNIT/250 ML BAG IV.CONT PRN (17:21)
--- NOTE | 2018-09-22 17:31 | P.PNNEU ---
Subjective Subjective Comments: moving right side better. Still with difficulty with speech Active Medications: Active Medications Acetaminophen (Tylenol) 650 mg PO Q6H PRN PRN Reason: PAIN 1-10 AND/OR FEVER >101F Al Hydroxide/Mg Hydroxide (Milk Of Magnestrellita Liq) 30 ml PO Q12H PRN PRN Reason: Mild Constipation Albuterol (Albuterol Neb (Prn)) 2.5 mg NEB Q2HR NEB PRN PRN Reason: SHORTNESS OF BREATH/WHEEZING Amlodipine Besylate (Norvasc) 5 mg PO DAILY [facility] Last Admin: 09/22/18 08:45 Dose: 5 mg Aspirin (Aspirin) 325 mg PO DAILY [facility] Last Admin: 09/22/18 08:45 Dose: 325 mg Bisacodyl (Dulcolax Supp) 10 mg RECTAL DAILY PRN PRN Reason: SEVERE CONSITIPATION Dextrose (D50w Vial) 50 ml IV.PUSH UNSCH PRN PRN Reason: PER HYPOGLYCEMIA PROTOCOL Dextrose (D50w Vial) 50 ml IV.PUSH UNSCH PRN PRN Reason: PER HYPOGLYCEMIA PROTOCOL Diphenhydramine HCl (Benadryl) 25 mg PO Q6H PRN PRN Reason: ITCHING Famotidine (Pepcid Pf Inj) 20 mg IV.PUSH Q12HR [facility] Last Admin: 09/22/18 08:46 Dose: 20 mg Glucagon (Glucagon Inj) 1 mg OTHER PRN PRN PRN Reason: for Hypoglycemia Protocol Glucagon (Glucagon Inj) 1 mg OTHER PRN PRN PRN Reason: for Hypoglycemia Protocol Hydralazine HCl (Apresoline Inj) 10 mg IV.PUSH Q4H PRN PRN Reason: SBP >180/DBP >100 Last Admin: 09/20/18 22:09 Dose: 10 mg Sodium Chloride (Ns Inj) 1,000 mls @ 42 mls/hr IV.CONT .[id number] [facility] Last Admin: 09/22/18 06:21 Dose: 70 mls/hr Acetaminophen (Ofirmev Inj) 1,000 mg in 100 mls @ 400 mls/hr IV.SIG Q6H PRN PRN Reason: FEVER OR PAIN 1-10 Last Infusion: 09/18/18 09:53 Dose: Infused Phenylephrine HCl 40 mg/ (Sodium Chloride) 500 mls @ 30 mls/hr IV.CONT TITRATE PRN; Protocol PRN Reason: See Protocol Last Titration: 09/16/18 17:33 Dose: Infused Magnesium Sulfate 4 gm/ Sodium (Chloride) 100 mls @ 50 mls/hr IV.SIG UNSCH PRN PRN Reason: For Magnesium 0.9 - 1.1 mg/dL Magnesium Sulfate 2 gm/ Sodium (Chloride) 100 mls @ 50 mls/hr IV.SIG UNSCH PRN PRN Reason: For Magnesium 1.2 - 1.6 mg/dL Potassium Chloride (Kcl 40 Meq Premix Inj) 40 meq in 100 mls @ 25 mls/hr IV.SIG Q2H PRN PRN Reason: For Potassium 2.8 - 3.2 mEq/L Potassium Chloride (Kcl 20 Meq Premix Inj) 20 meq in 100 mls @ 50 mls/hr IV.SIG Q2H PRN PRN Reason: For Potassium 3.3 - 3.5 mEq/L Last Infusion: 09/20/18 17:39 Dose: Infused Potassium Chloride (Kcl 40 Meq Premix Inj) 40 meq in 100 mls @ 25 mls/hr IV.SIG UNSCH PRN PRN Reason: For Potassium 3.3 - 3.5 mEq/L Potassium Phosphate 30 mmol/ (Sodium Chloride) 260 mls @ 42 mls/hr IV.SIG UNSCH PRN PRN Reason: SEE LABEL COMMENTS Sodium Phosphate 30 mmol/ (Sodium Chloride) 260 mls @ 42 mls/hr IV.SIG UNSCH PRN PRN Reason: For Phosphorus < 2.5 mg/dL Potassium Chloride (Kcl 20 Meq Premix Inj) 20 meq in 100 mls @ 50 mls/hr IV.SIG Q2H PRN PRN Reason: For Potassium 2.8 - 3.2 mEq/L Last Infusion: 09/19/18 17:56 Dose: Infused Heparin Sodium/Dextrose (Heparin/D5w 25,000 U/250 Ml) 25,000 unit in 250 mls @ 0 mls/hr IV.CONT TITRATE PRN; Protocol PRN Reason: Per Protocol Last Admin: 09/21/18 17:21 Dose: 1,200 units/hr, 12 mls/hr Insulin Aspart (Novolog Insulin Correctional Sugar Inj) 0 unit SQ ACHS JULIAN; Protocol Last Admin: 09/22/18 12:45 Dose: 3 unit Labetalol HCl (Trandate Inj) 10 mg IV.PUSH Q20M PRN PRN Reason: SBP >180/DBP >100 Last Admin: 09/19/18 21:32 Dose: 10 mg Lactulose (Lactulose Liq) 30 ml PO DAILY PRN PRN Reason: SEVERE CONSITIPATION Levetiracetam (Keppra Liq) 500 mg PO BID [facility] Last Admin: 09/22/18 08:46 Dose: 500 mg Magnesium Oxide (Mag-Ox) 800 mg PO UNSCH PRN PRN Reason: For Magnesium 1.2 - 1.6 mg/dL Metoprolol Tartrate (Lopressor Inj) 5 mg IV.PUSH Q6H PRN PRN Reason: Pulse > 100 Last Admin: 09/15/18 18:12 Dose: 5 mg Morphine Sulfate (Morphine Inj) 2 mg IV.PUSH Q3H PRN PRN Reason: PAIN 3-5; IF UABLE TO TAKE PO Last Admin: 09/20/18 00:45 Dose: 2 mg Morphine Sulfate (Morphine Inj) 4 mg IV.PUSH Q3H PRN PRN Reason: PAIN 6-10;IF UNABLE TO TAKE PO Last Admin: 09/22/18 04:22 Dose: 4 mg Morphine Sulfate (Morphine Inj) 4 mg IV.PUSH Q3H PRN PRN Reason: BREAKTHROUGH PAIN Morphine Sulfate (Morphine Inj) 4 mg IV.PUSH Q1H PRN PRN Reason: Pain Scale 7-10 (Intractable) Naloxone HCl (Narcan Inj) 0.4 mg IV.PUSH UNSCH PRN PRN Reason: SEE LABEL COMMENTS Ondansetron HCl (Zofran Inj) 4 mg IV.PUSH Q6H PRN PRN Reason: NAUSEA OR VOMITING Ondansetron HCl (Zofran Odt) 4 mg PO Q6H PRN PRN Reason: NAUSEA OR VOMITING Phenazopyridine HCl (Pyridium) 100 mg PO DAILY PRN PRN Reason: PAIN/BURNING DURING URINATION Potassium Bicarb/Potassium Chloride (K-Lyte Cl Eff) 50 meq PO UNSCH PRN PRN Reason: For Potassium 3.3 - 3.5 mEq/L Potassium Phosphate (K-Phos Original) 2,000 mg PO Q4H PRN PRN Reason: Phosphorus Less Than 2.5 mg/dL Potassium Phosphate (K-Phos Original) 2,000 mg PO UNSCH PRN PRN Reason: SEE LABEL COMMENTS Pravastatin Sodium (Pravachol) 40 mg PO [facility] Last Admin: 09/21/18 21:12 Dose: 40 mg Senna/Docusate Sodium (Deena-Colace) 1 tab PO BID [facility] Last Admin: 09/22/18 08:46 Dose: 1 tab Sennosides (Senokot) 17.2 mg PO Q12H PRN PRN Reason: Moderate Constipation Sodium Chloride (Ns Flush) 2 ml IV.FLUSH BID [facility] Last Admin: 09/22/18 08:47 Dose: 2 ml Sodium Chloride (Ns Flush) 2 ml IV.FLUSH UNSCH PRN PRN Reason: FLUSH AFTER USING IV ACCESS Terbutaline Sulfate (Brethine Inj) 1 mg SQ UNSCH PRN PRN Reason: For Extravasation Allergies/Adverse Reactions: Allergies Allergy/AdvReac Type Severity Reaction Status Date / Time No Known Allergies Allergy Verified 09/15/18 01:40 EST Physical Exam Vital signs: Vital Signs 09/21/18 19:00 09/21/18 20:00 09/21/18 21:00 Temperature 98.3 F Pulse Rate 86 85 81 Respiratory Rate 20 Blood Pressure 140/85 Pulse Oximetry 97 09/21/18 22:00 09/21/18 23:00 09/22/18 00:00 Temperature 98.3 F Pulse Rate 95 H 99 H 85 Respiratory Rate 16 Blood Pressure 156/76 H Pulse Oximetry 98 09/22/18 01:00 09/22/18 02:00 09/22/18 03:00 Temperature Pulse Rate 80 89 97 H Respiratory Rate Blood Pressure Pulse Oximetry 09/22/18 04:00 09/22/18 04:25 09/22/18 05:00 Temperature 99.3 F Pulse Rate 87 78 Respiratory Rate 17 16 Blood Pressure 152/87 H Pulse Oximetry 98 09/22/18 06:00 09/22/18 07:00 09/22/18 08:00 Temperature Pulse Rate 79 81 92 H Respiratory Rate Blood Pressure Pulse Oximetry 09/22/18 08:34 09/22/18 09:00 09/22/18 10:00 Temperature 98.8 F Pulse Rate 89 96 H 86 Respiratory Rate 18 Blood Pressure 155/85 H Pulse Oximetry 96 09/22/18 11:00 09/22/18 12:00 09/22/18 12:43 Temperature 98.2 F Pulse Rate 86 90 108 H Respiratory Rate 18 Blood Pressure 142/78 H Pulse Oximetry 97 09/22/18 13:00 09/22/18 14:00 09/22/18 15:00 Temperature Pulse Rate 94 H 100 H 87 Respiratory Rate Blood Pressure Pulse Oximetry Intake & Output 09/21/18 09/22/18 09/22/18 18:59 06:59 18:59 Intake Total 1490 / 1490 1480 / 1480 Output Total 820 / 820 800 / 800 Balance 670 / 670 680 / 680 Weight 56 kg Intake: IV 1250 / 1250 1000 / 1000 Heparin/D5W 25,000 U/250 mL 25, 250 / 250 000 unit In 250 ml @ Per Protocol IV.CONT TITRATE PRN Rx #:[id number] NS Inj 1,000 ML @ 42 mls/hr IV. 1000 / 1000 1000 / 1000 CONT .[id number] JULIAN Rx#:[id number] Oral 240 / 240 480 / 480 Output: Urine 820 / 820 Urine Amount (Catheter) 800 / 800 Indwelling Urethral Catheter 800 / 800 Other: Date of Last Bowel Movement 09/17/18 - Routine Neurological Exam alert, expressive aphasia. follow commands Cn--trace right upper motor neuron CN 7 MOTOR 4/5 RUE. 5/5 LUE - Urinary Catheter Management Indwelling Urethral Catheter Cath placed during this visit: yes Reason for continuing: Chronic Urinary Retention Insertion date: 09/16/18 Insertion time: 18:30 Objective Laboratory Results - last 24 hr 09/21/18 09/21/18 09/22/18 17:10 21:07 08:03 APTT POC Glucose 161 H 250 H 213 H 09/22/18 09/22/18 08:41 12:37 APTT 42.6 H POC Glucose 215 H Review/Management - Diagnosis (1) Acute CVA (cerebrovascular accident) Code(s): I63.9 - Cerebral infarction, unspecified Status: Acute Current Visit: Yes - Review/Management Plan: continue iv heparin carotid stent is being planned for carotid stenosis
[2018-09-23] MEDS: Morphine Inj 4 MG/ML Vial IV.PUSH PRN ×2 (04:47→12:15)
[2018-09-23] MEDS: amLODIPine 5 MG Tablet PO SCH (08:59)
[2018-09-23] MEDS: Senna/Docusate Sodium 8.6/50 MG Tablet PO SCH ×2 (08:59→21:40)
[2018-09-23] MEDS: Famotidine PF Inj 20 MG/2 ML Vial IV.PUSH SCH ×2 (08:59→21:40)
[2018-09-23] MEDS: Insulin NovoLOG Aspart Correctional Sugar Inj SQ SCH ×4 (09:00→21:39)
[2018-09-23] MEDS: Aspirin 325 MG Tablet PO SCH (09:04)
--- NOTE | 2018-09-23 09:47 | P.PN ---
Subjective Interval history: no new issues awaits procedures carotid stent vs ankle surgery Physical Exam Vital signs: Vital Signs 09/22/18 10:00 09/22/18 11:00 09/22/18 12:00 Temperature Pulse Rate 86 86 90 Respiratory Rate Blood Pressure Pulse Oximetry 09/22/18 12:43 09/22/18 13:00 09/22/18 14:00 Temperature 98.2 F Pulse Rate 108 H 94 H 100 H Respiratory Rate 18 Blood Pressure 142/78 H Pulse Oximetry 97 09/22/18 15:00 09/22/18 16:00 09/22/18 17:39 Temperature 98.8 F Pulse Rate 87 90 94 H Respiratory Rate 18 Blood Pressure 150/81 H Pulse Oximetry 97 09/22/18 18:00 09/22/18 19:00 09/22/18 20:00 Temperature 99 F Pulse Rate 86 94 H 94 H Respiratory Rate 16 Blood Pressure 145/81 H Pulse Oximetry 97 09/22/18 21:00 09/22/18 22:00 09/22/18 23:00 Temperature Pulse Rate 92 H 90 88 Respiratory Rate Blood Pressure Pulse Oximetry 09/23/18 00:00 09/23/18 01:00 09/23/18 02:00 Temperature Pulse Rate 86 90 90 Respiratory Rate 16 Blood Pressure 147/80 H Pulse Oximetry 97 09/23/18 03:00 09/23/18 04:00 09/23/18 05:00 Temperature Pulse Rate 83 90 98 H Respiratory Rate 18 Blood Pressure 158/89 H Pulse Oximetry 96 09/23/18 06:00 09/23/18 07:00 Temperature Pulse Rate 98 H 95 H Respiratory Rate Blood Pressure Pulse Oximetry Intake & Output 09/22/18 09/23/18 09/23/18 18:59 06:59 18:59 Intake Total 250 / 250 1240 / 1240 Output Total 900 / 900 Balance 250 / 250 340 / 340 Weight 57 kg Intake: IV 250 / 250 1000 / 1000 Heparin/D5W 25,000 U/250 mL 25, 250 / 250 000 unit In 250 ml @ Per Protocol IV.CONT TITRATE PRN Rx #:[id number] NS Inj 1,000 ML @ 42 mls/hr IV. 1000 / 1000 CONT .[id number] [facility] Rx#:[id number] Oral 240 / 240 Output: Urine Amount (Catheter) 900 / 900 Indwelling Urethral Catheter 900 / 900 Other: Date of Last Bowel Movement 09/17/18 # Bowel Movements 0 - Routine HEENT Exam Head: Present: normocephalic, atraumatic Eye: Present: EOMI, PERRL - Routine Neurological Exam Present: alert, CN II-XII intact expressive aphasia - Urinary Catheter Management Indwelling Urethral Catheter Cath placed during this visit: yes Reason for continuing: Chronic Urinary Retention Insertion date: 09/16/18 Insertion time: 18:30 Results - Labs CBC & Chem 7: 09/20/18 05:19 09/20/18 20:17 Laboratory Results - last 24 hr 09/22/18 09/22/18 09/22/18 08:41 12:37 17:10 APTT 42.6 H POC Glucose 215 H 173 H 09/22/18 09/23/18 09/23/18 21:16 06:50 07:56 APTT 45.5 H POC Glucose 285 H 207 H - Procedures SP BEDSIDE REDUCTION OF RIGHT LE BY ORTHO 09-18 (1) Closed trimalleolar fracture of ankle Date of procedure: 09/19/18 Procedure: Closed reduction of right ankle with external fixation Anesthesia: GETA Surgeon: Arvind Linder MD Lift Truck Mechanic: REBECCA Pineda PA-C The surgical procedure was assisted by my physician diploma medical assistant. My P.A. presence was necessary throughout this case for the manipulation and positioning of the surgical extremity. My P.A. was assisting me throughout the duration of this procedure. The skill set of a physician diploma medical assistant was medically necessary to complete this procedure. During the surgical case the surgical instrument mechanic was working at the back table and the physician diploma medical assistant was directly assisting me. Operation and Findings: Implants used: [employer] Details of procedure: This patient sustained an injury resulting in unstable fractures of the right distal tibia and fibula. Patient was also having us acute stroke. She was not cleared for surgery until today. Attempt was made for closed reduction and splinting. Patient's fracture was very unstable and had recurrent dislocation. Patient was seen and evaluated preoperatively and found to have too much swelling to proceed with open reduction internal fixation. Risk and benefits of surgery were discussed in depth with patient and informed consent was confirmed. Surgical site was marked. Patient was brought to operating room and placed on the OR table. Patient was given IV sedation and GETA. Patient received IV antibiotics and timeout procedure was performed. Operative leg was prepped with alcohol followed by Hibiclens and draped in the usual sterile fashion. Timeout procedure was performed. The procedure began with placement of external fixation. Two percutaneous incisions were made over the tibia. Pin sites were pre-drilled. External fixation pins were placed from anterior to posterior in the tibia shaft. An additional transfixion pin was placed through the calcaneus. Pins were also placed in the first and fifth metatarsals. An external fixator was now constructed. Fluoroscopy was used to confirm appropriate pin placement Next attention was turned to traction with manipulation of the leg. The fracture was manipulated under fluoroscopy. Reasonable reduction was achieved. With the fracture held in reduced position, the external fixator was tightened. An additional bar was placed posterior to the heel to keep the heel off the bed and avoid pressure ulceration. Fluoroscopy confirmed a well-placed external fixation with well-aligned fractures. Sterile dressings were applied. The patient was awakened and transferred to Recovery in stable condition. The soft tissue was reevaluated. Patient did have swelling around the ankle and calf but compartments were soft and compressible with no signs of compartment syndrome. Additional CC's: Arvind Linder Assessment and Plan - Assessment (1) Acute CVA (cerebrovascular accident) Code(s): I63.9 - Cerebral infarction, unspecified Status: Acute - Plan cont heparin defer to IR or ortho for timing on procedures but would guess if needs to be on plavix post carotid then ankle surgery may need to be done first as she will not be able to stop plavix. [id number]
--- NOTE | 2018-09-23 10:37 | P.PNIM ---
Subjective Interval history: The patient was resting in bed. She was still unable to talk. She denied any pain or discomfort. Her family was at the bedside. Nursing reports that the patient has not had a bowel movement in days. The patient was anticipating her procedure today. Physical Exam Vital signs: Vital Signs 09/22/18 11:00 09/22/18 12:00 09/22/18 12:43 Temperature 98.2 F Pulse Rate 86 90 108 H Respiratory Rate 18 Blood Pressure 142/78 H Pulse Oximetry 97 09/22/18 13:00 09/22/18 14:00 09/22/18 15:00 Temperature Pulse Rate 94 H 100 H 87 Respiratory Rate Blood Pressure Pulse Oximetry 09/22/18 16:00 09/22/18 17:39 09/22/18 18:00 Temperature 98.8 F Pulse Rate 90 94 H 86 Respiratory Rate 18 Blood Pressure 150/81 H Pulse Oximetry 97 09/22/18 19:00 09/22/18 20:00 09/22/18 21:00 Temperature 99 F Pulse Rate 94 H 94 H 92 H Respiratory Rate 16 Blood Pressure 145/81 H Pulse Oximetry 97 09/22/18 22:00 09/22/18 23:00 09/23/18 00:00 Temperature Pulse Rate 90 88 86 Respiratory Rate 16 Blood Pressure 147/80 H Pulse Oximetry 97 09/23/18 01:00 09/23/18 02:00 09/23/18 03:00 Temperature Pulse Rate 90 90 83 Respiratory Rate Blood Pressure Pulse Oximetry 09/23/18 04:00 09/23/18 05:00 09/23/18 06:00 Temperature Pulse Rate 90 98 H 98 H Respiratory Rate 18 Blood Pressure 158/89 H Pulse Oximetry 96 09/23/18 07:00 Temperature Pulse Rate 95 H Respiratory Rate Blood Pressure Pulse Oximetry Intake & Output 09/22/18 09/23/18 09/23/18 18:59 06:59 18:59 Intake Total 250 / 250 1240 / 1240 Output Total 900 / 900 Balance 250 / 250 340 / 340 Weight 57 kg Intake: IV 250 / 250 1000 / 1000 Heparin/D5W 25,000 U/250 mL 25, 250 / 250 000 unit In 250 ml @ Per Protocol IV.CONT TITRATE PRN Rx #:[id number] NS Inj 1,000 ML @ 42 mls/hr IV. 1000 / 1000 CONT .[id number] [facility] Rx#:[id number] Oral 240 / 240 Output: Urine Amount (Catheter) 900 / 900 Indwelling Urethral Catheter 900 / 900 Other: Date of Last Bowel Movement 09/17/18 # Bowel Movements 0 Narrative: GENERAL: Well-nourished, well-developed female patient who is aphasic. SKIN: Warm and dry. HEAD: Atraumatic. Normocephalic. EYES: Pupils equal and round. No scleral icterus. No injection or drainage. ENT: No nasal bleeding or discharge. Mucous membranes pink and moist. NECK: Trachea midline. No JVD. CARDIOVASCULAR: Regular rate and rhythm, systolic murmur appreciated. RESPIRATORY: No accessory muscle use. Clear to auscultation. Breath sounds equal bilaterally. GASTROINTESTINAL: Abdomen soft, non-tender, nondistended. Decreased bowel sounds. MUSCULOSKELETAL: Extremities without clubbing, cyanosis. Ex-Fix in place on right. Normal cap refill. NEUROLOGICAL: Awake and alert, remains aphasic. No pronator drift. Aphasic. - Urinary Catheter Management Indwelling Urethral Catheter Cath placed during this visit: yes Reason for continuing: Chronic Urinary Retention Insertion date: 09/16/18 Insertion time: 18:30 Results - Labs CBC & Chem 7: 09/20/18 05:19 09/20/18 20:17 Laboratory Results - last 24 hr 09/22/18 09/22/18 09/22/18 12:37 17:10 21:16 APTT POC Glucose 215 H 173 H 285 H 09/23/18 09/23/18 06:50 07:56 APTT 45.5 H POC Glucose 207 H - Procedures SP BEDSIDE REDUCTION OF RIGHT LE BY ORTHO 11-7 (1) Closed trimalleolar fracture of ankle Date of procedure: 09/19/18 Procedure: Closed reduction of right ankle with external fixation Anesthesia: GETA Surgeon: Arvind Linder MD Insecticide Sprayer: REBECCA Pineda PA-C The surgical procedure was assisted by my physician high school assistant principal. My P.A. presence was necessary throughout this case for the manipulation and positioning of the surgical extremity. My P.A. was assisting me throughout the duration of this procedure. The skill set of a physician high school assistant principal was medically necessary to complete this procedure. During the surgical case the cytotechnologist was working at the back table and the physician high school assistant principal was directly assisting me. Operation and Findings: Implants used: Orth[employer] Details of procedure: This patient sustained an injury resulting in unstable fractures of the right distal tibia and fibula. Patient was also having us acute stroke. She was not cleared for surgery until today. Attempt was made for closed reduction and splinting. Patient's fracture was very unstable and had recurrent dislocation. Patient was seen and evaluated preoperatively and found to have too much swelling to proceed with open reduction internal fixation. Risk and benefits of surgery were discussed in depth with patient and informed consent was confirmed. Surgical site was marked. Patient was brought to operating room and placed on the OR table. Patient was given IV sedation and GETA. Patient received IV antibiotics and timeout procedure was performed. Operative leg was prepped with alcohol followed by Hibiclens and draped in the usual sterile fashion. Timeout procedure was performed. The procedure began with placement of external fixation. Two percutaneous incisions were made over the tibia. Pin sites were pre-drilled. External fixation pins were placed from anterior to posterior in the tibia shaft. An additional transfixion pin was placed through the calcaneus. Pins were also placed in the first and fifth metatarsals. An external fixator was now constructed. Fluoroscopy was used to confirm appropriate pin placement Next attention was turned to traction with manipulation of the leg. The fracture was manipulated under fluoroscopy. Reasonable reduction was achieved. With the fracture held in reduced position, the external fixator was tightened. An additional bar was placed posterior to the heel to keep the heel off the bed and avoid pressure ulceration. Fluoroscopy confirmed a well-placed external fixation with well-aligned fractures. Sterile dressings were applied. The patient was awakened and transferred to Recovery in stable condition. The soft tissue was reevaluated. Patient did have swelling around the ankle and calf but compartments were soft and compressible with no signs of compartment syndrome. Additional CC's: Arvind Linder Assessment and Plan - Plan 53-year-old white female who was originally admitted with a trimalleolar ankle fracture to the [facility] emergency department, then developed strokelike symptoms and underwent TPA on 09/15. Neurology has been following. Patient ultimately underwent initial stage repair on 09/19/[address] over right ankle and foot. Involving infarction noted on left MCA distribution on follow-up CT scan. Acute ischemic left MCA stroke Bilateral carotid stenosis MNo afib on ekgs, will repeat EKG - shows SR w/ PACs. #3 aberrant right subclavian artery with a small Kommerell diverticulum -No subclavian artery aneurysm identified. -Status post TPA administration on 09/15 On aspirin Neurology following Vascular surgery has recommended a left carotid stent instead of a carotid endarterectomy due to anatomic variance. Carotid stent planned for 09/23. -continue rehab efforts. HLD -Crushed pills for now per speech therapy -high-dose Lipitor Diabetes mellitus, with acute hyperglycemia -Monitor bedside glucose ACHS and low dose sliding scale. Trimalleolar ankle fracture -Neurovascular checks, maintain splint and s/p closed reduction w/ exfix. -anticipated further surgery. OK to start Plavix per ortho. Constipation Ongoing. -add standing lactulose. -supp or enema if needed. PPx: Heparin
[2018-09-23 12:44] LABS: Anion Gap 13 meq/L (5-15); Blood Urea Nitrogen 5 mg/dL (7-18); Calcium 7.9 mg/dL (8.5-10.1); Chloride 103 meq/L (98-107); Glomerular Filtration Rate Greater Than 89 mL/min (>89); Glucose,Random 207 mg/dL (74-106); Potassium 3.1 meq/L (3.5-5.1); Sodium 142 meq/L (136-145)
[2018-09-23] MEDS: Heparin Drip 25,000 UNIT/250 ML BAG IV.CONT PRN (13:02)
[2018-09-23] MEDS ORDERED: fentaNYL Citrate Inj 250 MCG/5 ML Ampul ONE (14:13)
[2018-09-23] MEDS ORDERED: Heparin 10,000 UNITS/10 ML Vial (for IV use) ONE (15:36)
--- NOTE | 2018-09-23 15:55 | ECG ---
Date Performed: 09/22/2018 Time Performed: 15:21:22 PTAGE: 53 years EKG: Sinus rhythm with PAC(s). Left axis deviation Possible septal infarct - age undetermined Inferior T wave changes are nonspecific Abnormal ECG PREVIOUS TRACING : 09/19/2018 15.47 Compared to previous tracing, rate has slowed and septal in farct pattern is new. Clinical correlation is recommended DOCTOR: Esequiel Cross Interpretating Date/Time 09/23/2018 15:54:19
[2018-09-23] MEDS ORDERED: ceFAZolin 2 GM Premix Inj 2 GM/50 ML PIGGYBACK IV.SIG ONE (16:22)
--- NOTE | 2018-09-23 16:56 | P.RAD ---
Post Procedure Progress Note - Pre Procedure Diagnosis (1) Carotid stenosis, bilateral (2) Acute ischemic left MCA stroke - Post Procedure Diagnosis (1) Acute ischemic left MCA stroke (2) Carotid stenosis, bilateral - Procedure Information Procedure Date: 09/23/18 Supervising Radiologist: [place] Jr, MD Assisting Physician: Geraldo Pruitt Anesthesia: Conscious Sedation - Plan of Activity Patient to Unit: Critical Care See PACS Report for procedural detail/treatment. Vascular - Arterial Procedure left Carotid Procedure: Angiogram, Stent Placement - Additional Information Findings: Angiography shows significant stenosis of both CCA origins as well as LICA origin. MAKI origin patent. Patient has variant anatomy described in angiogram report on PACS. Successful stenting of LCCA and LICA arteries. Plan: Pt placed on Plavix. Consider RCCA origin stenting in future.
[2018-09-23] MEDS ORDERED: Atropine Inj 1 MG/10 ML Syringe ONE (17:41)
[2018-09-23 18:15] LABS: Baso # (Auto) 0.1 th/mm3 (0.0-0.2); Baso % (Auto) 0.8 % (0.0-2.0); Eos # (Auto) 0.2 th/mm3 (0.0-0.4); Eos % (Auto) 1.9 % (0.0-4.0); Hematocrit 29.9 % (35.0-46.0); Hemoglobin 10.3 gm/dL (11.6-15.3); Lymph # (Auto) 2.2 th/mm3 (1.0-4.8); Lymph % (Auto) 28.8 % (9.0-44.0); Mean Corpuscular HGB Conc 34.4 % (32.0-36.0); Mean Corpuscular Volume 87.2 fL (80.0-100.0); Mean Platelet Volume 9.1 fL (7.0-11.0); Mono # (Auto) 0.8 th/mm3 (0.0-0.9); Mono % (Auto) 9.7 % (0.0-8.0); Neut # (Auto) 4.6 th/mm3 (1.8-7.7); Neut % (Auto) 58.8 % (16.0-70.0); Platelet Count 229 th/mm3 (150-450); Red Blood Count 3.43 mil/mm3 (4.00-5.30); Red Cell Distribution Width 13.2 % (11.6-17.2); White Blood Count 7.8 th/mm3 (4.0-11.0)
[2018-09-23 18:37] LABS: Albumin 2.5 g/dL (3.4-5.0); Anion Gap 12 meq/L (5-15); Aspartate Aminotransferase 15 U/L (15-37); Blood Urea Nitrogen 5 mg/dL (7-18); Calcium 7.6 mg/dL (8.5-10.1); Carbon Dioxide 26.5 meq/L (21.0-32.0); Chloride 105 meq/L (98-107); Glomerular Filtration Rate Greater Than 89 mL/min (>89); Glucose,Random 192 mg/dL (74-106); Sodium 143 meq/L (136-145)
[2018-09-23 18:38] LABS: Alanine Aminotransferase 21 U/L (10-53)
[2018-09-23 18:41] LABS: Alkaline Phosphatase 71 U/L (45-117); Total Protein 6.1 g/dL (6.4-8.2)
--- NOTE | 2018-09-23 18:52 | XR ---
EXAM DATE: 09/23/2018 5:59 PM EST AGE/SEX: 53 years / Female INDICATIONS: Short of breath, halicat. CLINICAL DATA: This is the patient's subsequent encounter. Patient reports that signs and symptoms h ave been present for 1 week and indicates a pain score of 0/10. MEDICAL/SURGICAL HISTORY: Non-responsive. Non-responsive. COMPARISON: [facility], CHEST 1V SINGLE AP, 09/15/2018. . FINDINGS: No new focal pleural parenchymal opacities. Cardiomediastinal contours are stable. Remainder of the e xam is unchanged. CONCLUSION: 1. No acute abnormality or significant interval change. Electronically signed by: Jesse Braun MD 09/23/2018 6:51 PM EST
[2018-09-23] MEDS: Potassium Chlor 20 mEq Premix 20 MEQ/100 ML PIGGYBACK IV.SIG SCH ×2 (20:24→23:22)
[2018-09-24 00:33] LABS: Anion Gap 9 meq/L (5-15); Blood Urea Nitrogen 6 mg/dL (7-18); Calcium 7.7 mg/dL (8.5-10.1); Carbon Dioxide 28.8 meq/L (21.0-32.0); Chloride 104 meq/L (98-107); Glomerular Filtration Rate Greater Than 89 mL/min (>89); Glucose,Random 226 mg/dL (74-106); Magnesium 1.6 mg/dL (1.5-2.5); Phosphorus 3.9 mg/dL (2.5-4.9); Potassium 3.1 meq/L (3.5-5.1); Sodium 142 meq/L (136-145)
[2018-09-24 08:37] LABS: Baso % (Auto) 0.7 % (0.0-2.0); Eos # (Auto) 0.1 th/mm3 (0.0-0.4); Eos % (Auto) 0.8 % (0.0-4.0); Hematocrit 28.8 % (35.0-46.0); Hemoglobin 9.7 gm/dL (11.6-15.3); Lymph # (Auto) 0.8 th/mm3 (1.0-4.8); Lymph % (Auto) 12.8 % (9.0-44.0); Mean Corpuscular HGB Conc 33.5 % (32.0-36.0); Mean Corpuscular Volume 86.5 fL (80.0-100.0); Mean Platelet Volume 9.6 fL (7.0-11.0); Mono # (Auto) 0.5 th/mm3 (0.0-0.9); Mono % (Auto) 7.8 % (0.0-8.0); Neut # (Auto) 4.8 th/mm3 (1.8-7.7); Neut % (Auto) 77.9 % (16.0-70.0); Platelet Count 194 th/mm3 (150-450); Red Blood Count 3.33 mil/mm3 (4.00-5.30); Red Cell Distribution Width 13.3 % (11.6-17.2); White Blood Count 6.2 th/mm3 (4.0-11.0)
[2018-09-24] MEDS: Aspirin 325 MG Tablet PO SCH (08:51)
[2018-09-24] MEDS: Famotidine PF Inj 20 MG/2 ML Vial IV.PUSH SCH ×2 (08:52→21:00)
[2018-09-24] MEDS: Senna/Docusate Sodium 8.6/50 MG Tablet PO SCH ×2 (08:53→21:00)
[2018-09-24] MEDS: Insulin NovoLOG Aspart Correctional Sugar Inj SQ SCH ×3 (09:09→20:59)
--- NOTE | 2018-09-24 09:39 | MB ---
cc: Moody Narayanan MD DATE: 09/24/2018 REASON FOR CONSULTATION: EKG changes, hypotension. HISTORY OF PRESENT ILLNESS: The patient is a 53-year-old white female with a history of diabetes, fibromyalgia, who was initially admitted 09/15/2018, with a severe right ankle fracture. While in the emergency department, she developed acute left-sided CVA, initially treated with thrombolytic therapy, then stenting of the left common and left internal carotid arteries yesterday. After the stent procedure, she apparently developed hypotension with systolic blood pressures in the 60s. EKGs in the last 24 hours have revealed inferior and anterolateral T-wave changes suggestive of ischemia. The patient denies any history of chest pain, shortness of breath, dizziness, syncope, near syncope, pedal edema. Chronically for many years, she has had intermittent skipped beat palpitations. PAST MEDICAL HISTORY: 1. Diabetes. 2. Fibromyalgia. 3. Left-sided CVA, 09/15/2018. CURRENT CARDIAC MEDICATIONS: Amlodipine 5 mg p.o. daily, aspirin 325 mg p.o. daily, Plavix 75 mg p.o. daily, heparin drip, pravastatin 40 mg p.o. at bedtime. ALLERGIES: NO KNOWN DRUG ALLERGIES. FAMILY HISTORY: The patient's father apparently has an extensive history of coronary artery disease beginning in his 50s. SOCIAL HISTORY: The patient smokes occasional cigarettes. She denies drug or alcohol abuse. REVIEW OF SYSTEMS: As in the history of present illness, otherwise negative or noncontributory. She also denies headache, abdominal pain, melena, dyspepsia, bright red blood per rectum, wheezing. PHYSICAL EXAMINATION: VITAL SIGNS: Her blood pressure 96/58 with a pulse of 64, respirations 16. GENERAL: She is a well-developed, well-nourished, white female in no acute distress. NECK: Jugular venous pressure is normal. Carotid pulses are 2+ bilaterally and without bruits. CHEST: Reveals clear lungs donnelly. CARDIAC: She has a regular rhythm and rate without S3, S4, or murmur. ABDOMEN: She has a soft, nontender abdomen. Bowel sounds are present. There is no definite hepatosplenomegaly. EXTREMITIES: Reveals the right lower extremity to be in an external fixation device. There is no definite clubbing or cyanosis. DIAGNOSTIC DATA: EKG from 09/15/2018 shows sinus tachycardia, nonspecific intraventricular conduction delay, poor R-wave progression, left axis deviation. EKG from 09/23/2018 at 5:44 p.m. shows sinus rhythm, new inferior and anterolateral T-wave inversion, consider ischemia. EKG from today shows no change from yesterday. Chest x-ray shows no acute disease. Laboratory data includes WBC 6.2, hemoglobin 9.7, platelets 194. Potassium 3.1, BUN 6, creatinine 0.49. Negative cardiac enzymes. IMPRESSION: Transient hypotension, EKG changes suggestive of ischemia in this 53-year-old white female with a history of diabetes, admitted with severe right ankle fracture as well as acute left-sided cerebrovascular accident treated with thrombolytic therapy and then stenting of the left common and left internal carotid arteries yesterday. The etiology of her hypotension is not entirely clear. Cardiac enzymes are negative for myocardial infarction. The patient reports no angina-like symptoms, although she is diabetic, at increased risk for "silent ischemia." The patient also has risk factors for coronary disease including tobacco abuse, family history, dyslipidemia, diabetes. Echocardiogram earlier this admission reportedly showed excellent left ventricular function. RECOMMENDATIONS: Check a Lexiscan nuclear stress test. Depending on the findings, consider cardiac catheterization versus medical therapy. MD ANETA Galindo/catie , 09:07 AM , 09:15 AM FLORENC[place]
[2018-09-24 10:46] LABS: Alanine Aminotransferase 24 U/L (10-53); Albumin 2.5 g/dL (3.4-5.0); Anion Gap 10 meq/L (5-15); Aspartate Aminotransferase 19 U/L (15-37); Blood Urea Nitrogen 8 mg/dL (7-18); Calcium 7.8 mg/dL (8.5-10.1); Carbon Dioxide 26.3 meq/L (21.0-32.0); Chloride 106 meq/L (98-107); Glomerular Filtration Rate Greater Than 89 mL/min (>89); Glucose,Random 198 mg/dL (74-106); Potassium 3.2 meq/L (3.5-5.1); Sodium 142 meq/L (136-145)
[2018-09-24 10:49] LABS: Alkaline Phosphatase 71 U/L (45-117)
--- NOTE | 2018-09-24 11:07 | P.PNIM ---
Subjective Interval history: The patient was working with speech therapy. She denied any symptoms of dizziness, lightheadedness, shortness of breath or chest pain. She did speak with the heart doctor earlier and was aware she was going to be scheduled for a stress test. Physical Exam Vital signs: Vital Signs 09/23/18 12:00 09/23/18 17:00 09/23/18 17:10 Temperature 99.2 F 99.0 F Pulse Rate 90 48 L 49 L Respiratory Rate 16 14 Blood Pressure 133/92 H 61/39 L Pulse Oximetry 98 96 09/23/18 17:40 09/23/18 18:00 09/23/18 19:00 Temperature Pulse Rate 82 80 Respiratory Rate Blood Pressure Pulse Oximetry 98 09/23/18 20:00 09/23/18 21:00 09/23/18 22:00 Temperature 99.7 F H Pulse Rate 76 82 74 Respiratory Rate 16 Blood Pressure 104/71 Pulse Oximetry 97 09/23/18 23:00 09/23/18 23:48 09/24/18 00:00 Temperature 98.9 F Pulse Rate 78 83 76 Respiratory Rate 16 Blood Pressure 105/65 Pulse Oximetry 96 09/24/18 01:00 09/24/18 02:00 09/24/18 03:00 Temperature Pulse Rate 65 67 65 Respiratory Rate Blood Pressure Pulse Oximetry 09/24/18 03:44 09/24/18 04:00 09/24/18 05:00 Temperature 98.9 F Pulse Rate 59 L 63 63 Respiratory Rate 16 Blood Pressure 96/58 L Pulse Oximetry 97 09/24/18 06:00 09/24/18 07:00 09/24/18 08:00 Temperature 97.9 F Pulse Rate 70 64 61 Respiratory Rate 18 Blood Pressure 96/70 L Pulse Oximetry 99 Intake & Output 09/23/18 09/24/18 09/24/18 18:59 06:59 18:59 Intake Total 250 / 250 320 / 320 Output Total 1200 / 1200 850 / 850 Balance -950 / -950 -530 / -530 Weight 56.8 kg Intake: IV 250 / 250 200 / 200 Heparin/D5W 25,000 U/250 mL 25, 250 / 250 000 unit In 250 ml @ Per Protocol IV.CONT TITRATE PRN Rx #:[id number] KCl 20 mEq Premix Inj 20 meq In 200 / 200 100 ml @ 50 mls/hr IV.SIG Q2H [facility] Rx#:[id number] Oral 0 / 0 120 / 120 Output: Urine 1200 / 1200 Urine Amount (Catheter) 850 / 850 Indwelling Urethral Catheter 850 / 850 Other: Date of Last Bowel Movement 09/17/18 09/23/18 09/24/18 # Incontinent Bowel Movements 3 Narrative: GENERAL: Well-nourished, well-developed female patient who is aphasic. SKIN: Warm and dry. HEAD: Atraumatic. Normocephalic. EYES: Pupils equal and round. No scleral icterus. No injection or drainage. ENT: No nasal bleeding or discharge. Mucous membranes pink and moist. NECK: Trachea midline. No JVD. CARDIOVASCULAR: Regular rate and rhythm, systolic murmur appreciated. RESPIRATORY: No accessory muscle use. Clear to auscultation. Breath sounds equal bilaterally. GASTROINTESTINAL: Abdomen soft, non-tender, nondistended. Decreased bowel sounds. MUSCULOSKELETAL: Extremities without clubbing, cyanosis. Ex-Fix in place on right. Normal cap refill. NEUROLOGICAL: Awake and alert, remains aphasic. No pronator drift. - Urinary Catheter Management Indwelling Urethral Catheter Cath placed during this visit: yes Reason for continuing: Acute urinary retention Insertion date: 09/16/18 Insertion time: 18:30 Results - Labs CBC & Chem 7: 09/24/18 07:05 09/24/18 09:33 Laboratory Results - last 24 hr 09/23/18 09/23/18 09/23/18 11:40 11:49 17:36 WBC RBC Hgb Hct MCV MCH MCHC RDW Plt Count MPV Neut % (Auto) Lymph % (Auto) Storey % (Auto) Eos % (Auto) Baso % (Auto) Neut # (Auto) Lymph # (Auto) Storey # (Auto) Eos # (Auto) Baso # (Auto) WBC Differential Differential Comment APTT Sodium 142 Potassium 3.1 L Chloride 103 Carbon Dioxide 26.0 Anion Gap 13 BUN 5 L Creatinine 0.46 L Estimated GFR Greater than 89 POC Glucose 194 H 227 H Random Glucose 207 H Lactic Acid Calcium 7.9 L Phosphorus Magnesium Total Bilirubin AST ALT Alkaline Phosphatase Troponin I Total Protein Albumin 09/23/18 09/23/18 09/23/18 17:50 17:50 17:50 WBC 7.8 RBC 3.43 L Hgb 10.3 L Hct 29.9 L MCV 87.2 MCH 30.0 MCHC 34.4 RDW 13.2 Plt Count 229 MPV 9.1 Neut % (Auto) 58.8 Lymph % (Auto) 28.8 Storey % (Auto) 9.7 H Eos % (Auto) 1.9 Baso % (Auto) 0.8 Neut # (Auto) 4.6 Lymph # (Auto) 2.2 Storey # (Auto) 0.8 Eos # (Auto) 0.2 Baso # (Auto) 0.1 WBC Differential . Differential Comment Auto diff final APTT Sodium 143 Potassium 3.0 L Chloride 105 Carbon Dioxide 26.5 Anion Gap 12 BUN 5 L Creatinine 0.51 Estimated GFR Greater than 89 POC Glucose Random Glucose 192 H Lactic Acid Calcium 7.6 L Phosphorus Magnesium Total Bilirubin 0.4 AST 15 ALT 21 Alkaline Phosphatase 71 Troponin I Cancelled Less than 0.02 L Total Protein 6.1 L D Albumin 2.5 L 09/23/18 09/24/18 09/24/18 21:02 00:04 00:04 WBC RBC Hgb Hct MCV MCH MCHC RDW Plt Count MPV Neut % (Auto) Lymph % (Auto) Storey % (Auto) Eos % (Auto) Baso % (Auto) Neut # (Auto) Lymph # (Auto) Storey # (Auto) Eos # (Auto) Baso # (Auto) WBC Differential Differential Comment APTT Sodium 142 Potassium 3.1 L Chloride 104 Carbon Dioxide 28.8 Anion Gap 9 BUN 6 L Creatinine 0.49 L Estimated GFR Greater than 89 POC Glucose 226 H Random Glucose 226 H Lactic Acid 1.1 Calcium 7.7 L Phosphorus 3.9 Magnesium 1.6 Total Bilirubin AST ALT Alkaline Phosphatase Troponin I Less than 0.02 L Total Protein Albumin 09/24/18 09/24/18 09/24/18 07:05 07:05 07:05 WBC 6.2 RBC 3.33 L Hgb 9.7 L Hct 28.8 L MCV 86.5 MCH 29.0 MCHC 33.5 RDW 13.3 Plt Count 194 MPV 9.6 Neut % (Auto) 77.9 H Lymph % (Auto) 12.8 Storey % (Auto) 7.8 Eos % (Auto) 0.8 Baso % (Auto) 0.7 Neut # (Auto) 4.8 Lymph # (Auto) 0.8 L Storey # (Auto) 0.5 Eos # (Auto) 0.1 Baso # (Auto) 0.0 WBC Differential . Differential Comment Auto diff final APTT 29.5 D Sodium Potassium Chloride Carbon Dioxide Anion Gap BUN Creatinine Estimated GFR POC Glucose Random Glucose Lactic Acid Calcium Phosphorus Magnesium Total Bilirubin AST ALT Alkaline Phosphatase Troponin I Less than 0.02 L Total Protein Albumin 09/24/18 09/24/18 08:48 09:33 WBC RBC Hgb Hct MCV MCH MCHC RDW Plt Count MPV Neut % (Auto) Lymph % (Auto) Storey % (Auto) Eos % (Auto) Baso % (Auto) Neut # (Auto) Lymph # (Auto) Storey # (Auto) Eos # (Auto) Baso # (Auto) WBC Differential Differential Comment APTT Sodium 142 Potassium 3.2 L Chloride 106 Carbon Dioxide 26.3 Anion Gap 10 BUN 8 Creatinine 0.43 L Estimated GFR Greater than 89 POC Glucose 203 H Random Glucose 198 H Lactic Acid Calcium 7.8 L Phosphorus Magnesium Total Bilirubin 0.5 AST 19 ALT 24 Alkaline Phosphatase 71 Troponin I Total Protein 6.0 L Albumin 2.5 L - Imaging Impressions Chest X-Ray 09/23/18 17:36 CONCLUSION: 1. No acute abnormality or significant interval change. - Procedures SP BEDSIDE REDUCTION OF RIGHT LE BY ORTHO 09-18 (1) Closed trimalleolar fracture of ankle Date of procedure: 09/19/18 Procedure: Closed reduction of right ankle with external fixation Anesthesia: GETA Surgeon: Arvind Linder MD Plating Department Helper: REBECCA Pineda PA-C The surgical procedure was assisted by my physician technical assistant. My P.A. presence was necessary throughout this case for the manipulation and positioning of the surgical extremity. My P.A. was assisting me throughout the duration of this procedure. The skill set of a physician technical assistant was medically necessary to complete this procedure. During the surgical case the rv repair technician was working at the back table and the physician technical assistant was directly assisting me. Operation and Findings: Implants used: Orthofix Details of procedure: This patient sustained an injury resulting in unstable fractures of the right distal tibia and fibula. Patient was also having us acute stroke. She was not cleared for surgery until today. Attempt was made for closed reduction and splinting. Patient's fracture was very unstable and had recurrent dislocation. Patient was seen and evaluated preoperatively and found to have too much swelling to proceed with open reduction internal fixation. Risk and benefits of surgery were discussed in depth with patient and informed consent was confirmed. Surgical site was marked. Patient was brought to operating room and placed on the OR table. Patient was given IV sedation and GETA. Patient received IV antibiotics and timeout procedure was performed. Operative leg was prepped with alcohol followed by Hibiclens and draped in the usual sterile fashion. Timeout procedure was performed. The procedure began with placement of external fixation. Two percutaneous incisions were made over the tibia. Pin sites were pre-drilled. External fixation pins were placed from anterior to posterior in the tibia shaft. An additional transfixion pin was placed through the calcaneus. Pins were also placed in the first and fifth metatarsals. An external fixator was now constructed. Fluoroscopy was used to confirm appropriate pin placement Next attention was turned to traction with manipulation of the leg. The fracture was manipulated under fluoroscopy. Reasonable reduction was achieved. With the fracture held in reduced position, the external fixator was tightened. An additional bar was placed posterior to the heel to keep the heel off the bed and avoid pressure ulceration. Fluoroscopy confirmed a well-placed external fixation with well-aligned fractures. Sterile dressings were applied. The patient was awakened and transferred to Recovery in stable condition. The soft tissue was reevaluated. Patient did have swelling around the ankle and calf but compartments were soft and compressible with no signs of compartment syndrome. Additional CC's: Arvind Linder Assessment and Plan - Plan 53-year-old white female who was originally admitted with a trimalleolar ankle fracture to the [facility] emergency department, then developed strokelike symptoms and underwent TPA on 09/15. Neurology has been following. Patient ultimately underwent initial stage repair on 09/19/[address] over right ankle and foot. Involving infarction noted on left MCA distribution on follow-up CT scan. Acute ischemic left MCA stroke Bilateral carotid stenosis MNo afib on ekgs, will repeat EKG - shows SR w/ PACs. #3 aberrant right subclavian artery with a small Kommerell diverticulum -No subclavian artery aneurysm identified. -Status post TPA administration on 09/15. On aspirin, Plavix and statin. Neurology following. Vascular surgery has recommended a left carotid stent instead of a carotid endarterectomy due to anatomic variance. Carotid stent placed 09/23. -continue rehab efforts. Hypotension/ Ischemia Following carotid stent placement on 09/23/2018 the patient developed hypotension. EKG showed inverted T waves as well as some ST depression. Her blood pressure has improved but is still on the low side. Trops negative x 3. Cardiology consult appreciated. -stress test pending. -IVFs as needed. -telemetry. Diabetes mellitus, with acute hyperglycemia -Monitor bedside glucose ACHS and low dose sliding scale. Trimalleolar ankle fracture -Neurovascular checks, maintain splint and s/p closed reduction w/ exfix. -anticipated further surgery. OK to start Plavix per ortho. Constipation Ongoing. -add standing lactulose. -supp or enema if needed. PPx: Heparin
[2018-09-24] MEDS: Morphine Sulfate Inj 2 MG/ML Vial IV.PUSH PRN ×2 (11:19→17:56)
[2018-09-24] MEDS: Potassium Chlor 20 mEq Premix 20 MEQ/100 ML PIGGYBACK IV.SIG SCH ×2 (12:59→16:45)
--- NOTE | 2018-09-24 14:22 | ECG ---
Date Performed: 09/23/2018 Time Performed: 17:44:06 PTAGE: 53 years EKG: Sinus rhythm with PAC(s) Prolonged QT interval Left axis deviation Extensive ST-T changes may be due to myocardia l ischemia Compared to previous tracing the patient has new anterolateral T wave inversion concerning for ischemia Clinical correlation is recommended Abnormal ECG PREVIOUS TRACING : 09/22/2018 15.21 DOCTOR: Addie Durant Interpretating Date/Time 09/24/2018 14:22:01
--- NOTE | 2018-09-24 14:22 | ECG ---
Date Performed: 09/23/2018 Time Performed: 20:57:24 PTAGE: 53 years EKG: Sinus rhythm with PAC(s) Left axis deviation Extensive ST-T changes may be due to myocardial ischemia Since the p revious tracing, no significant change noted Abnormal ECG PREVIOUS TRACING : 09/23/2018 17.44 DOCTOR: Addie Durant Interpretating Date/Time 09/24/2018 14:22:12
[2018-09-24] MEDS ORDERED: Regadenoson Inj 0.4 MG/5 ML Syringe IV.PUSH ONE (14:34)
--- NOTE | 2018-09-24 15:53 | NM ---
EXAM DATE: 09/24/2018 3:49 PM EST AGE/SEX: 53 years / Female INDICATIONS:Abnormal EKG. . CLINICAL DATA: This is the patient's initial encounter. Patient reports that signs and symptoms have been present for 1 day and indicates a pain score of 0/10. MEDICAL/SURGICAL HISTORY: Diabetes mellitus type II. Smoker. None. COMPARISON: No prior exams available for comparison. DOSE: 8.5 mCi Tc 99m Myoview at rest 26.1 mCi [id number] at stress 0.4 mg Lexiscan STRESS SYMPTOMS: None. EJECTION FRACTION: 62 % TECHNIQUE: The patient underwent pharmacologic stress with infusion of prescribed dose. Continuous ECG tracing was monitored during stress. Gated SPECT imaging was performed after stress and conventi onal SPECT imaging was performed at rest. The examination was performed on a SPECT/CT scanner, both attenuation and non-corrected datasets were reviewed. FINDINGS: Distribution: The maximum perfused segment at stress is in the anterolateral wall. Perfusion Study: The pattern of perfusion at stress is within normal limits. Gated Study: There are intact wall motion and wall thickening without hypokinetic or dyskinetic segm ents. The ejection fraction is calculated at 62%. RISK CATEGORY: Low (<1% Annual Motality Rate) CONCLUSION: 1. No reversible perfusion defect to indicate stress-induced myocardial ischemia identified. Electronically signed by: Darwin Mora MD 09/24/2018 3:52 PM EST
[2018-09-24] MEDS: Heparin Drip 25,000 UNIT/250 ML BAG IV.CONT PRN (16:51)
[2018-09-24] MEDS: Sod Chloride 0.9% Inj 1,000 ML IV.CONT SCH ×2 (16:57→17:55)
--- NOTE | 2018-09-24 17:14 | P.PNADD ---
Addendum to Inpatient Note Reason for Addendum: Additional Documentation Additional information: ADDENDUM: Patient's nuclear stress test shows no ischemia. Echocardiogram earlier this admission showed normal left ventricular function. Recommend no additional cardiac w/u. Patient cleared for orthopedic surgery from a cardiac standpoint.
[2018-09-25 07:25] LABS: Anion Gap 9 meq/L (5-15); Blood Urea Nitrogen 7 mg/dL (7-18); Calcium 7.8 mg/dL (8.5-10.1); Carbon Dioxide 27.1 meq/L (21.0-32.0); Chloride 107 meq/L (98-107); Glomerular Filtration Rate Greater Than 89 mL/min (>89); Glucose,Random 163 mg/dL (74-106); Magnesium 1.5 mg/dL (1.5-2.5); Phosphorus 3.9 mg/dL (2.5-4.9); Potassium 3.3 meq/L (3.5-5.1); Sodium 143 meq/L (136-145)
[2018-09-25] MEDS: Senna/Docusate Sodium 8.6/50 MG Tablet PO SCH ×2 (09:09→20:56)
[2018-09-25] MEDS: Famotidine PF Inj 20 MG/2 ML Vial IV.PUSH SCH ×2 (09:10→20:56)
[2018-09-25] MEDS: Aspirin 325 MG Tablet PO SCH (09:10)
[2018-09-25] MEDS: Insulin NovoLOG Aspart Correctional Sugar Inj SQ SCH ×4 (09:11→20:59)
[2018-09-25] MEDS: Morphine Sulfate Inj 2 MG/ML Vial IV.PUSH PRN (10:40)
[2018-09-25] MEDS: Sod Chloride 0.9% Inj 1,000 ML IV.CONT SCH (12:47)
--- NOTE | 2018-09-25 12:50 | ECG ---
Date Performed: 09/24/2018 Time Performed: 06:46:34 PTAGE: 53 years EKG: Sinus rhythm with PAC(s) Leftward axis Possible septal infarct - age undetermined Inferior/lateral T wave changes are nonspecific Abnormal ECG PREVIOUS TRACING : 09/23/2018 20.57 DOCTOR: Nima Dang Interpretating Date/Time 09/25/2018 12:45:57
--- NOTE | 2018-09-25 13:28 | IR ---
EXAM DATE: 09/23/2018 5:38 PM EST AGE/SEX: 53 years / Female INDICATIONS: patient presents with carotid stenosis in need of stent placement. Left MCA territory i nfarction. Patient has variant anatomy with very low bifurcations of the CCAs CLINICAL DATA: This is the patient's initial encounter. Patient reports that signs and symptoms have been present for 4 - 6 days and indicates a pain score of 0/10. MEDICAL/SURGICAL HISTORY: Stroke. Diabetes. . Ankle surgery COMPARISON: [facility], CTA NECK W CONTRAST W 3D, 09/15/2018.. . FLUORO TIME (min): 18.1 IMAGE SERIES: 18 ACCESS SITE: Right femoral artery SEDATION TIME (min): 90 CONTRAST (cc): 120cc Visipaque (iodixanol) MEDICATION(S): 2.5mg midazolam (Versed) IV 125mcg fentanyl (Sublimaze) IV DEVICE(S): Left common carotid artery [id number] Express SD Stent Left internal carotid artery ev3 Protege [id number] Stent Right common femoral artery 6F Angio seal Spider X distal protection device . . PROCEDURE : 1. Ultrasound guided puncture of the right common femoral artery. 2. Angiography of the right common femoral artery prior to closure device. 3. Conscious sedation with continuous EKG and oximetry monitoring. 4. Percutaneous closure of the femoral artery. 5. Angiography of the aortic arch 6. Angiography of the left common carotid artery 7. Angiography of the left internal carotid artery. 8. Intracranial angiography of the left internal carotid artery 9. Deployment of a distal protection device within the left ICA 10. Stenting of the left common carotid artery 11. Stenting of the left carotid bulb and ICA 12. Angiography of the right common carotid artery The risks, benefits and alternatives to the procedure were explained and verbal and written consent w as obtained. The site was prepped in sterile fashion. Full sterile technique was used, including ca p, mask, sterile gloves and gown and a large sterile sheet. Hand hygiene and 2% chlorhexidine and/or betadine/alcohol prep was utilized per protocol for cutaneous antisepsis. Sterile gel and sterile p robe cover were utilized for ultrasound guidance. The skin and subcutaneous tissues were infiltrated with local anesthetic solution. With ultrasound and fluoroscopic guidance the <<right>> common femoral artery was punctured and a vas cular sheath was placed. Angiography of the common femoral artery was performed for evaluation prior to percutaneous closure device placement. An arch aortogram was performed. The patient has a four-vessel aortic arch. There is a replaced ri ght subclavian artery. Images of the arch vessels reveal calcified atherosclerotic plaque involving t he right common carotid artery origin and left common carotid artery origin. A 50-60% stenosis utiliz ing NASCET criteria is seen involving both common carotid artery origins. Examination of the left car otid artery demonstrates a very short common carotid artery with bifurcation occurring at the level o f the clavicle. There is eccentric partially calcified atheromatous plaque involving the ICA origin g enerating a 50% stenosis without ulceration.. Visible thrombus is not present. Given the patient' s recent stroke intervention of the left carotid artery was felt prudent. Patient is not a surgical c andidate given the location of the bifurcation. Attention was first turned to the origin of the left common carotid. A Raabe sheath was positioned just proximal to the origin. A Spider X distal protecti on device was deployed within the left ICA at the C2 level. A 7 mm x 15 mm balloon expandable stent w as deployed at the origin. A waist was initially noted on the balloon which resolved with relatively low pressure. A follow-up angiogram shows resolution of the previously seen stenosis with good brisk antegrade flow through the previously stenotic segment. The stent is in good position. Attention was then turned to the atherosclerotic plaque involving the carotid bulb and proximal ICA. An 8 x 6 x 30 Protege self-expanding stent was deployed within the common carotid artery extending into the proxima l ICA. This stent expanded well on its own with improvement in the stenosis and good antegrade flow o n fall pain diagram. The spider X was removed. Attention was then turned to the right carotid. Angiography of the right common carotid artery origin and subsequently selection of the common caroti d artery with angiography of the carotid bifurcation shows eccentric calcified plaque at the common c arotid artery origin generating a 50-60% stenosis. There is a very early bifurcation of the carotid a rtery which occurs just cephalad to the clavicle. The right vertebral artery arises from the carotid bulb. The selective angiography of the ICA shows an ulcerated plaque that does not generate stenosis utilizing NASCET criteria. The puncture site was closed with a Angio-Seal closure device. The patient tolerated the procedure w ell and there were no complications. Conscious sedation was performed with the prescribed dosages and duration as above in the presence of an independent trained radiology nurse to assist in the monitoring of the patient. EKG and oximetry remained stable throughout the procedure. CONCLUSION: 1. Atherosclerotic plaque generating 50-60% stenoses of the bilateral common carotid artery origins as well as the left carotid bulb/ICA. Successful stenting of the left CCA origin and left carotid bul b/ICA. 2. No significant stenosis involving the right ICA. Consideration could be made to stenting of the r ight common carotid origin. 3. Variant anatomy with a replaced right subclavian artery, very low carotid bifurcations and right vertebral artery origin from the carotid bulb as detailed above.. 4. Ultrasound examination at 6, 12, 18 and 24 months following procedure should be performed to eval uate stent patency. Electronically signed by: [place] MD 09/25/2018 1:26 PM EST
[2018-09-25] MEDS ORDERED: Potassium Chloride 25 MEQ Effervescent Tablet PO ONE (14:20)
--- NOTE | 2018-09-25 15:34 | P.PNIM ---
Subjective Interval history: The patient was resting comfortably in bed. She has not been eating that much. Her family was at the bedside. The patient indicated that she was having regular bowel movements. Discussed with nursing at the bedside. Physical Exam Vital signs: Vital Signs 09/24/18 16:00 09/24/18 17:00 09/24/18 18:00 Temperature 98.2 F Pulse Rate 72 68 68 Respiratory Rate 18 Blood Pressure 117/77 Pulse Oximetry 100 09/24/18 19:00 09/24/18 20:00 09/24/18 21:00 Temperature 98.9 F Pulse Rate 82 80 78 Respiratory Rate 16 Blood Pressure 117/76 Pulse Oximetry 97 09/24/18 22:00 09/24/18 23:00 09/25/18 00:00 Temperature 98.4 F Pulse Rate 78 76 80 Respiratory Rate 16 Blood Pressure 120/71 Pulse Oximetry 97 09/25/18 01:00 09/25/18 02:00 09/25/18 03:00 Temperature Pulse Rate 74 80 64 Respiratory Rate Blood Pressure Pulse Oximetry 09/25/18 03:22 09/25/18 04:00 09/25/18 05:00 Temperature 98.2 F Pulse Rate 61 60 66 Respiratory Rate 16 Blood Pressure 98/52 L Pulse Oximetry 99 09/25/18 06:00 09/25/18 07:00 09/25/18 08:00 Temperature 98.6 F Pulse Rate 71 50 L 50 L Respiratory Rate 20 Blood Pressure 122/55 L Pulse Oximetry 97 09/25/18 09:00 09/25/18 10:00 09/25/18 11:00 Temperature Pulse Rate 52 L 66 66 Respiratory Rate Blood Pressure Pulse Oximetry 09/25/18 12:00 09/25/18 13:00 09/25/18 14:00 Temperature Pulse Rate 52 L 70 74 Respiratory Rate 20 Blood Pressure 118/71 Pulse Oximetry 96 Intake & Output 09/24/18 09/25/18 09/25/18 18:59 06:59 18:59 Intake Total 470 / 470 60 / 60 1000 / 1000 Output Total 325 / 325 575 / 575 Balance 145 / 145 -515 / -515 1000 / 1000 Weight 58.8 kg Intake: IV 350 / 350 1000 / 1000 Heparin/D5W 25,000 U/250 mL 25, 250 / 250 000 unit In 250 ml @ Per Protocol IV.CONT TITRATE PRN Rx #:[id number] NS Inj 1,000 ML @ 42 mls/hr IV. 1000 / 1000 CONT [id number] [facility] Rx#:[id number] KCl 20 mEq Premix Inj 20 meq In 100 / 100 100 ml @ 50 mls/hr IV.SIG Q2H [facility] Rx#:[id number] Oral 120 / 120 60 / 60 Output: Urine Amount (Catheter) 325 / 325 575 / 575 Indwelling Urethral Catheter 325 / 325 575 / 575 Other: Date of Last Bowel Movement 09/24/18 09/24/18 09/25/18 # Bowel Movements 0 # Incontinent Bowel Movements 2 Narrative: GENERAL: Well-nourished, well-developed female patient who is aphasic. SKIN: Warm and dry. HEAD: Atraumatic. Normocephalic. EYES: Pupils equal and round. No scleral icterus. No injection or drainage. ENT: No nasal bleeding or discharge. Mucous membranes pink and moist. NECK: Trachea midline. No JVD. CARDIOVASCULAR: Regular rate and rhythm, systolic murmur appreciated. RESPIRATORY: No accessory muscle use. Clear to auscultation. Breath sounds equal bilaterally. GASTROINTESTINAL: Abdomen soft, non-tender, nondistended. Decreased bowel sounds. MUSCULOSKELETAL: Extremities without clubbing, cyanosis. Ex-Fix in place on right. Normal cap refill. NEUROLOGICAL: Awake and alert, remains aphasic. No pronator drift. - Urinary Catheter Management Indwelling Urethral Catheter Cath placed during this visit: yes Reason for continuing: Acute urinary retention Insertion date: 09/16/18 Insertion time: 18:30 Results - Labs CBC & Chem 7: 09/24/18 07:05 09/25/18 06:25 Laboratory Results - last 24 hr 09/24/18 09/24/18 09/25/18 17:48 20:43 01:07 APTT 40.8 H D Sodium Potassium Chloride Carbon Dioxide Anion Gap BUN Creatinine Estimated GFR POC Glucose 169 H 219 H Random Glucose Calcium Phosphorus Magnesium 09/25/18 09/25/18 09/25/18 06:25 06:25 11:50 APTT 40.7 H Sodium 143 Potassium 3.3 L Chloride 107 Carbon Dioxide 27.1 Anion Gap 9 BUN 7 Creatinine 0.50 Estimated GFR Greater than 89 POC Glucose 209 H Random Glucose 163 H Calcium 7.8 L Phosphorus 3.9 Magnesium 1.5 - Imaging Impressions Carotid Stent with Emboli Filter 09/23/18 00:00 CONCLUSION: 1. Atherosclerotic plaque generating 50-60% stenoses of the bilateral common carotid artery origins as well as the left carotid bulb/ICA. Successful stenting of the left CCA origin and left carotid bulb/ICA. 2. No significant stenosis involving the right ICA. Consideration could be made to stenting of the right common carotid origin. 3. Variant anatomy with a replaced right subclavian artery, very low carotid bifurcations and right vertebral artery origin from the carotid bulb as detailed above.. 4. Ultrasound examination at 6, 12, 18 and 24 months following procedure should be performed to evaluate stent patency. Myocardial Perfusion Scan Nuc Med 09/24/18 00:00 CONCLUSION: 1. No reversible perfusion defect to indicate stress-induced myocardial ischemia identified. - Procedures SP BEDSIDE REDUCTION OF RIGHT LE BY ORTHO 11 (1) Closed trimalleolar fracture of ankle Date of procedure: 09/19/18 Procedure: Closed reduction of right ankle with external fixation Anesthesia: GETA Surgeon: Arvind Linder MD Electrician Bus: REBECCA Pineda PA-C The surgical procedure was assisted by my physician executive assistant to president. My P.A. presence was necessary throughout this case for the manipulation and positioning of the surgical extremity. My P.A. was assisting me throughout the duration of this procedure. The skill set of a physician executive assistant to president was medically necessary to complete this procedure. During the surgical case the certified surgical technician was working at the back table and the physician executive assistant to president was directly assisting me. Operation and Findings: Implants used: Orthofix Details of procedure: This patient sustained an injury resulting in unstable fractures of the right distal tibia and fibula. Patient was also having us acute stroke. She was not cleared for surgery until today. Attempt was made for closed reduction and splinting. Patient's fracture was very unstable and had recurrent dislocation. Patient was seen and evaluated preoperatively and found to have too much swelling to proceed with open reduction internal fixation. Risk and benefits of surgery were discussed in depth with patient and informed consent was confirmed. Surgical site was marked. Patient was brought to operating room and placed on the OR table. Patient was given IV sedation and GETA. Patient received IV antibiotics and timeout procedure was performed. Operative leg was prepped with alcohol followed by Hibiclens and draped in the usual sterile fashion. Timeout procedure was performed. The procedure began with placement of external fixation. Two percutaneous incisions were made over the tibia. Pin sites were pre-drilled. External fixation pins were placed from anterior to posterior in the tibia shaft. An additional transfixion pin was placed through the calcaneus. Pins were also placed in the first and fifth metatarsals. An external fixator was now constructed. Fluoroscopy was used to confirm appropriate pin placement Next attention was turned to traction with manipulation of the leg. The fracture was manipulated under fluoroscopy. Reasonable reduction was achieved. With the fracture held in reduced position, the external fixator was tightened. An additional bar was placed posterior to the heel to keep the heel off the bed and avoid pressure ulceration. Fluoroscopy confirmed a well-placed external fixation with well-aligned fractures. Sterile dressings were applied. The patient was awakened and transferred to Recovery in stable condition. The soft tissue was reevaluated. Patient did have swelling around the ankle and calf but compartments were soft and compressible with no signs of compartment syndrome. Additional CC's: Arvind Linder Assessment and Plan - Plan 53-year-old white female who was originally admitted with a trimalleolar ankle fracture to the [facility] emergency department, then developed strokelike symptoms and underwent TPA on 09/15. Neurology has been following. Patient ultimately underwent initial stage repair on 09/19/[address] over right ankle and foot. Involving infarction noted on left MCA distribution on follow-up CT scan. 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 -Status post TPA administration on 09/15. On aspirin, Plavix and statin. D/c heparin gtt. Neurology following. Vascular surgery has recommended a left carotid stent instead of a carotid endarterectomy due to anatomic variance. Carotid stent placed 09/23. -continue rehab efforts. Hypotension Following carotid stent placement on 09/23/2018 the patient developed hypotension. EKG showed inverted T waves as well as some ST depression. Her blood pressure has improved but is still on the low side. Trops negative x 3. Cardiology consult appreciated. Stress test negative. Cardiology signed off. -IVFs as needed. -telemetry. Diabetes mellitus, with acute hyperglycemia -Monitor bedside glucose ACHS and low dose sliding scale. Trimalleolar ankle fracture -Neurovascular checks, maintain splint and s/p closed reduction w/ exfix. -anticipated further surgery. OK to start Plavix per ortho. Hypokalemia S/t decreased PO intake. -replete with PO KCl and monitor. PPx: Heparin Discharge Planning: Transfer to [address] [place] [address]
[2018-09-25] MEDS: Heparin - SQ 10,000 UNITS/ML Vial SQ SCH (21:00)
[2018-09-26] MEDS: Sod Chloride 0.9% Inj 1,000 ML IV.CONT SCH ×2 (00:08→11:21)
[2018-09-26] MEDS: Insulin NovoLOG Aspart Correctional Sugar Inj SQ SCH ×5 (03:21→21:41)
[2018-09-26 05:58] LABS: Hematocrit 27.1 % (35.0-46.0); Hemoglobin 8.8 gm/dL (11.6-15.3); Mean Corpuscular HGB Conc 32.6 % (32.0-36.0); Mean Corpuscular Hemoglobin 28.7 pg (27.0-34.0); Mean Corpuscular Volume 87.9 fL (80.0-100.0); Mean Platelet Volume 9.7 fL (7.0-11.0); Platelet Count 184 th/mm3 (150-450); Red Blood Count 3.08 mil/mm3 (4.00-5.30); Red Cell Distribution Width 13.4 % (11.6-17.2)
[2018-09-26] MEDS: Heparin - SQ 10,000 UNITS/ML Vial SQ SCH ×2 (06:05→16:58)
[2018-09-26 06:06] LABS: Anion Gap 8 meq/L (5-15); Blood Urea Nitrogen 5 mg/dL (7-18); Calcium 7.9 mg/dL (8.5-10.1); Carbon Dioxide 30.1 meq/L (21.0-32.0); Chloride 107 meq/L (98-107); Glomerular Filtration Rate Greater Than 89 mL/min (>89); Glucose,Random 163 mg/dL (74-106); Magnesium 1.8 mg/dL (1.5-2.5); Potassium 3.6 meq/L (3.5-5.1); Sodium 145 meq/L (136-145)
--- NOTE | 2018-09-26 06:44 | P.PNOP ---
Subjective Interval history: s/p exfix right ankle doing well. improving. received carotid stent for left carotid. Physical Exam Vital signs: Vital Signs 09/25/18 07:00 09/25/18 08:00 09/25/18 09:00 Temperature 98.6 F Pulse Rate 50 L 50 L 52 L Respiratory Rate 20 Blood Pressure 122/55 L Pulse Oximetry 97 09/25/18 10:00 09/25/18 11:00 09/25/18 12:00 Temperature Pulse Rate 66 66 52 L Respiratory Rate 20 Blood Pressure 118/71 Pulse Oximetry 96 09/25/18 13:00 09/25/18 14:00 09/25/18 15:00 Temperature Pulse Rate 70 74 72 Respiratory Rate Blood Pressure Pulse Oximetry 09/25/18 15:47 09/25/18 16:00 09/25/18 17:00 Temperature 98.6 F Pulse Rate 74 70 74 Respiratory Rate 20 Blood Pressure 98/42 L Pulse Oximetry 97 09/25/18 18:00 09/25/18 19:00 09/25/18 19:30 Temperature Pulse Rate 72 68 Respiratory Rate 18 Blood Pressure Pulse Oximetry 09/25/18 20:00 09/25/18 21:00 09/25/18 22:00 Temperature 99.0 F Pulse Rate 72 74 78 Respiratory Rate 18 Blood Pressure 112/65 Pulse Oximetry 99 09/25/18 23:00 09/25/18 23:10 09/26/18 00:00 Temperature 98.7 F Pulse Rate 81 82 Respiratory Rate 18 18 Blood Pressure 132/76 Pulse Oximetry 98 09/26/18 00:27 09/26/18 03:50 Temperature 98.5 F 98.4 F Pulse Rate 60 73 Respiratory Rate 17 17 Blood Pressure 129/58 L 156/70 H Pulse Oximetry 95 94 L Intake & Output 09/25/18 09/25/18 09/26/18 06:59 18:59 06:59 Intake Total 60 / 60 1780 / 1780 480 / 480 Output Total 575 / 575 650 / 650 850 / 850 Balance -515 / -515 1130 / 1130 -370 / -370 Weight 58.8 kg 58.8 kg Intake: IV 1200 / 1200 Heparin/D5W 25,000 U/250 mL 25, 200 / 200 000 unit In 250 ml @ Per Protocol IV.CONT TITRATE PRN Rx #:[id number] NS Inj 1,000 ML @ 42 mls/hr IV. 1000 / 1000 CONT .[id number] [facility] Rx#:[id number] Oral 60 / 60 580 / 580 480 / 480 Output: Urine 650 / 650 650 / 650 Urine Amount (Catheter) 575 / 575 200 / 200 Indwelling Urethral Catheter 575 / 575 200 / 200 Other: Date of Last Bowel Movement 09/24/18 09/25/18 09/25/18 # Bowel Movements 0 0 Narrative: RLE: +exfix. swelling improved. skin healthy. pin sites clean - Urinary Catheter Management Indwelling Urethral Catheter Cath placed during this visit: yes Reason for continuing: Acute urinary retention Insertion date: 09/16/18 Insertion time: 18:30 Results - Labs CBC & Chem 7: 09/26/18 05:03 09/26/18 05:03 Laboratory Results - last 24 hr 09/25/18 09/25/18 09/25/18 06:25 06:25 11:50 WBC RBC Hgb Hct MCV MCH MCHC RDW Plt Count MPV APTT 40.7 H Sodium 143 Potassium 3.3 L Chloride 107 Carbon Dioxide 27.1 Anion Gap 9 BUN 7 Creatinine 0.50 Estimated GFR Greater than 89 POC Glucose 209 H Random Glucose 163 H Calcium 7.8 L Phosphorus 3.9 Magnesium 1.5 09/25/18 09/25/18 09/26/18 16:39 19:59 05:03 WBC 6.0 RBC 3.08 L Hgb 8.8 L Hct 27.1 L MCV 87.9 MCH 28.7 MCHC 32.6 RDW 13.4 Plt Count 184 MPV 9.7 APTT Sodium Potassium Chloride Carbon Dioxide Anion Gap BUN Creatinine Estimated GFR POC Glucose 226 H 154 H Random Glucose Calcium Phosphorus Magnesium 09/26/18 05:03 WBC RBC Hgb Hct MCV MCH MCHC RDW Plt Count MPV APTT Sodium 145 Potassium 3.6 Chloride 107 Carbon Dioxide 30.1 Anion Gap 8 BUN 5 L Creatinine 0.51 Estimated GFR Greater than 89 POC Glucose Random Glucose 163 H Calcium 7.9 L Phosphorus Magnesium 1.8 - Imaging Impressions Carotid Stent with Emboli Filter 09/23/18 00:00 CONCLUSION: 1. Atherosclerotic plaque generating 50-60% stenoses of the bilateral common carotid artery origins as well as the left carotid bulb/ICA. Successful stenting of the left CCA origin and left carotid bulb/ICA. 2. No significant stenosis involving the right ICA. Consideration could be made to stenting of the right common carotid origin. 3. Variant anatomy with a replaced right subclavian artery, very low carotid bifurcations and right vertebral artery origin from the carotid bulb as detailed above.. 4. Ultrasound examination at 6, 12, 18 and 24 months following procedure should be performed to evaluate stent patency. - Procedures SP BEDSIDE REDUCTION OF RIGHT LE BY ORTHO 09-18 (1) Closed trimalleolar fracture of ankle Date of procedure: 09/19/18 Procedure: Closed reduction of right ankle with external fixation Anesthesia: GETA Surgeon: Arvind Linder MD Bacteriologist Fishery: REBECCA Pineda PA-C The surgical procedure was assisted by my physician ophthalmology assistant. My P.A. presence was necessary throughout this case for the manipulation and positioning of the surgical extremity. My P.A. was assisting me throughout the duration of this procedure. The skill set of a physician ophthalmology assistant was medically necessary to complete this procedure. During the surgical case the motorsports technician was working at the back table and the physician ophthalmology assistant was directly assisting me. Operation and Findings: Implants used: Orthofix Details of procedure: This patient sustained an injury resulting in unstable fractures of the right distal tibia and fibula. Patient was also having us acute stroke. She was not cleared for surgery until today. Attempt was made for closed reduction and splinting. Patient's fracture was very unstable and had recurrent dislocation. Patient was seen and evaluated preoperatively and found to have too much swelling to proceed with open reduction internal fixation. Risk and benefits of surgery were discussed in depth with patient and informed consent was confirmed. Surgical site was marked. Patient was brought to operating room and placed on the OR table. Patient was given IV sedation and GETA. Patient received IV antibiotics and timeout procedure was performed. Operative leg was prepped with alcohol followed by Hibiclens and draped in the usual sterile fashion. Timeout procedure was performed. The procedure began with placement of external fixation. Two percutaneous incisions were made over the tibia. Pin sites were pre-drilled. External fixation pins were placed from anterior to posterior in the tibia shaft. An additional transfixion pin was placed through the calcaneus. Pins were also placed in the first and fifth metatarsals. An external fixator was now constructed. Fluoroscopy was used to confirm appropriate pin placement Next attention was turned to traction with manipulation of the leg. The fracture was manipulated under fluoroscopy. Reasonable reduction was achieved. With the fracture held in reduced position, the external fixator was tightened. An additional bar was placed posterior to the heel to keep the heel off the bed and avoid pressure ulceration. Fluoroscopy confirmed a well-placed external fixation with well-aligned fractures. Sterile dressings were applied. The patient was awakened and transferred to Recovery in stable condition. The soft tissue was reevaluated. Patient did have swelling around the ankle and calf but compartments were soft and compressible with no signs of compartment syndrome. Additional CC's: Arvind Linder Assessment and Plan - Assessment and Plan 1) Right trimalleolar ankle fracture s/p exfix -NWB -maintain exfix -pin care BID and daily dressing changes of blisters with xeroform/4x4/JAYLENE -npo after MN -sign consents -plan for surgery tomorrow with Stacy for ankle
--- NOTE | 2018-09-26 09:46 | P.PN ---
Subjective Interval history: doing better right ankle surgery tomorrow Physical Exam Vital signs: Vital Signs 09/25/18 10:00 09/25/18 11:00 09/25/18 12:00 Temperature Pulse Rate 66 66 52 L Respiratory Rate 20 Blood Pressure 118/71 Pulse Oximetry 96 09/25/18 13:00 09/25/18 14:00 09/25/18 15:00 Temperature Pulse Rate 70 74 72 Respiratory Rate Blood Pressure Pulse Oximetry 09/25/18 15:47 09/25/18 16:00 09/25/18 17:00 Temperature 98.6 F Pulse Rate 74 70 74 Respiratory Rate 20 Blood Pressure 98/42 L Pulse Oximetry 97 09/25/18 18:00 09/25/18 19:00 09/25/18 19:30 Temperature Pulse Rate 72 68 Respiratory Rate 18 Blood Pressure Pulse Oximetry 09/25/18 20:00 09/25/18 21:00 09/25/18 22:00 Temperature 99.0 F Pulse Rate 72 74 78 Respiratory Rate 18 Blood Pressure 112/65 Pulse Oximetry 99 09/25/18 23:00 09/25/18 23:10 09/26/18 00:00 Temperature 98.7 F Pulse Rate 81 82 Respiratory Rate 18 18 Blood Pressure 132/76 Pulse Oximetry 98 09/26/18 00:27 09/26/18 01:59 09/26/18 03:50 Temperature 98.5 F 98.4 F Pulse Rate 60 79 73 Respiratory Rate 17 17 Blood Pressure 129/58 L 156/70 H Pulse Oximetry 95 94 L 09/26/18 03:52 09/26/18 08:40 Temperature 98.5 F Pulse Rate 78 78 Respiratory Rate 17 Blood Pressure 113/55 L Pulse Oximetry 96 Intake & Output 09/25/18 09/26/18 09/26/18 18:59 06:59 18:59 Intake Total 1780 / 1780 480 / 480 Output Total 650 / 650 850 / 850 Balance 1130 / 1130 -370 / -370 Weight 58.8 kg Intake: IV 1200 / 1200 Heparin/D5W 25,000 U/250 mL 25, 200 / 200 000 unit In 250 ml @ Per Protocol IV.CONT TITRATE PRN Rx #:[id number] NS Inj 1,000 ML @ 42 mls/hr IV. 1000 / 1000 CONT .[id number] [facility] Rx#:[id number] Oral 580 / 580 480 / 480 Output: Urine 650 / 650 650 / 650 Urine Amount (Catheter) 200 / 200 Indwelling Urethral Catheter 200 / 200 Other: Date of Last Bowel Movement 09/25/18 09/25/18 # Bowel Movements 0 - Constitutional no acute distress - Routine HEENT Exam Head: Present: normocephalic Eye: Present: EOMI, PERRL - Routine Neurological Exam Present: alert, CN II-XII intact expressive aphasia but was able to repeat a word for me. - Urinary Catheter Management Indwelling Urethral Catheter Cath placed during this visit: yes Reason for continuing: Acute urinary retention Insertion date: 09/16/18 Insertion time: 18:30 Results - Labs CBC & Chem 7: 09/26/18 05:03 09/26/18 05:03 Laboratory Results - last 24 hr 09/25/18 09/25/18 09/25/18 11:50 16:39 19:59 WBC RBC Hgb Hct MCV MCH MCHC RDW Plt Count MPV Sodium Potassium Chloride Carbon Dioxide Anion Gap BUN Creatinine Estimated GFR POC Glucose 209 H 226 H 154 H Random Glucose Calcium Magnesium 09/26/18 09/26/18 09/26/18 05:03 05:03 09:02 WBC 6.0 RBC 3.08 L Hgb 8.8 L Hct 27.1 L MCV 87.9 MCH 28.7 MCHC 32.6 RDW 13.4 Plt Count 184 MPV 9.7 Sodium 145 Potassium 3.6 Chloride 107 Carbon Dioxide 30.1 Anion Gap 8 BUN 5 L Creatinine 0.51 Estimated GFR Greater than 89 POC Glucose 222 H Random Glucose 163 H Calcium 7.9 L Magnesium 1.8 - Imaging Impressions Carotid Stent with Emboli Filter 09/23/18 00:00 CONCLUSION: 1. Atherosclerotic plaque generating 50-60% stenoses of the bilateral common carotid artery origins as well as the left carotid bulb/ICA. Successful stenting of the left CCA origin and left carotid bulb/ICA. 2. No significant stenosis involving the right ICA. Consideration could be made to stenting of the right common carotid origin. 3. Variant anatomy with a replaced right subclavian artery, very low carotid bifurcations and right vertebral artery origin from the carotid bulb as detailed above.. 4. Ultrasound examination at 6, 12, 18 and 24 months following procedure should be performed to evaluate stent patency. - Procedures SP BEDSIDE REDUCTION OF RIGHT LE BY ORTHO 11-7 (1) Closed trimalleolar fracture of ankle Date of procedure: 09/19/18 Procedure: Closed reduction of right ankle with external fixation Anesthesia: GETA Surgeon: Arvind Linder MD Sales And Marketing Intern: REBECCA Pineda PA-C The surgical procedure was assisted by my physician carpenter assistant installer. My P.A. presence was necessary throughout this case for the manipulation and positioning of the surgical extremity. My P.A. was assisting me throughout the duration of this procedure. The skill set of a physician carpenter assistant installer was medically necessary to complete this procedure. During the surgical case the surgical clinical reviewer was working at the back table and the physician carpenter assistant installer was directly assisting me. Operation and Findings: Implants used: Orthofix Details of procedure: This patient sustained an injury resulting in unstable fractures of the right distal tibia and fibula. Patient was also having us acute stroke. She was not cleared for surgery until today. Attempt was made for closed reduction and splinting. Patient's fracture was very unstable and had recurrent dislocation. Patient was seen and evaluated preoperatively and found to have too much swelling to proceed with open reduction internal fixation. Risk and benefits of surgery were discussed in depth with patient and informed consent was confirmed. Surgical site was marked. Patient was brought to operating room and placed on the OR table. Patient was given IV sedation and GETA. Patient received IV antibiotics and timeout procedure was performed. Operative leg was prepped with alcohol followed by Hibiclens and draped in the usual sterile fashion. Timeout procedure was performed. The procedure began with placement of external fixation. Two percutaneous incisions were made over the tibia. Pin sites were pre-drilled. External fixation pins were placed from anterior to posterior in the tibia shaft. An additional transfixion pin was placed through the calcaneus. Pins were also placed in the first and fifth metatarsals. An external fixator was now constructed. Fluoroscopy was used to confirm appropriate pin placement Next attention was turned to traction with manipulation of the leg. The fracture was manipulated under fluoroscopy. Reasonable reduction was achieved. With the fracture held in reduced position, the external fixator was tightened. An additional bar was placed posterior to the heel to keep the heel off the bed and avoid pressure ulceration. Fluoroscopy confirmed a well-placed external fixation with well-aligned fractures. Sterile dressings were applied. The patient was awakened and transferred to Recovery in stable condition. The soft tissue was reevaluated. Patient did have swelling around the ankle and calf but compartments were soft and compressible with no signs of compartment syndrome. Additional CC's: Arvind Linder Assessment and Plan - Assessment (1) Acute CVA (cerebrovascular accident) Code(s): I63.9 - Cerebral infarction, unspecified Status: Acute - Plan dc heparin cont plavix and asa pt-ot-st surgery tomorrow for ankle dc planning after rehab.
[2018-09-26 10:40] LABS: % Iron Saturation 9.6 % (20-50); Folate 18.4 ng/mL (3.1-17.5)
[2018-09-26] MEDS: Famotidine PF Inj 20 MG/2 ML Vial IV.PUSH SCH ×2 (11:16→21:26)
[2018-09-26] MEDS: Aspirin 325 MG Tablet PO SCH (11:17)
[2018-09-26] MEDS: Senna/Docusate Sodium 8.6/50 MG Tablet PO SCH ×2 (11:21→21:25)
--- NOTE | 2018-09-26 11:41 | P.CONREH ---
History of Present Illness Service: Physical medicine and rehabilitation Reason for Consult: Comprehensive rehabilitation evaluation Primary Care Provider: Steven Palomo MD Chief Complaint: Fall, R ankle fracture, stroke History of Present Illness: Stephanie Mckeon is a 53-year-old [id number] female who initially presented to [facility] 09/15/18 with right ankle pain after tripping over a rake. She was found to have a right trimalleolar fracture and was to be transferred to [facility] for operative management. Prior to transfer in the emergency department she developed right facial droop and aphasia. Head CT was negative. She subsequently received systemic TPA. Brain MRI showed focal areas of restricted diffusion in left frontal, left parietal and left insular lobes characteristic of acute left MCA infarct. On 09/19/18 she underwent closed reduction of right trimalleolar fracture with external fixator placement. On 09/23/18 she underwent stenting of left CCA and left ICA arteries. She is for surgical repair of left ankle fracture and removal of external fixator 09/27/18. Review of Systems other (Limited due to aphasia) Constitutional: Denies headache(s) Cardiovascular: Denies chest pain Respiratory: Denies shortness of breath PMFSH - History History Provided By: Patient, Significant Other - Medical History Medical History: Medical History (Last Reviewed 09/26/18 @ 11:33 by Betty Lovelace) Diabetes mellitus Tobacco abuse - Surgical History Surgical History: Surgical History (Last Reviewed 09/26/18 @ 11:33 by Betty Lovelace) No history of previous surgery - Family History Family History: Family History (Last Reviewed 09/26/18 @ 11:33 by Betty Lovelace) Father Hx of CABG CAD (coronary artery disease) - Tobacco History Second Hand Smoke Exposure: No Tobacco Use In Past 30 Days: Yes Smoking Status: Current some day smoker Tobacco Type: Cigarettes - Alcohol History How Often Do You Have a Drink Containing Alcohol: Monthly or less - Substance Use History Substance History: No History of Abuse - Immunization History Tetanus Immunization: Unsure Medications and Allergies Active Medications: Active Medications Acetaminophen (Tylenol) 650 mg PO Q6H PRN PRN Reason: PAIN 1-10 AND/OR FEVER >101F Al Hydroxide/Mg Hydroxide (Milk Of Magnesia Liq) 30 ml PO Q12H PRN PRN Reason: Mild Constipation Albuterol (Albuterol Neb (Prn)) 2.5 mg NEB Q2HR NEB PRN PRN Reason: SHORTNESS OF BREATH/WHEEZING Amlodipine Besylate (Norvasc) 5 mg PO DAILY [facility] Last Admin: 09/23/18 08:59 Dose: 5 mg Aspirin (Aspirin) 325 mg PO DAILY [facility] Last Admin: 09/26/18 11:17 Dose: 325 mg Bisacodyl (Dulcolax Supp) 10 mg RECTAL DAILY PRN PRN Reason: SEVERE CONSITIPATION Clopidogrel Bisulfate (Plavix) 75 mg PO DAILY [facility] Last Admin: 09/26/18 11:17 Dose: 75 mg Dextrose (D50w Vial) 50 ml IV.PUSH UNSCH PRN PRN Reason: PER HYPOGLYCEMIA PROTOCOL Diphenhydramine HCl (Benadryl) 25 mg PO Q6H PRN PRN Reason: ITCHING Last Admin: 09/22/18 21:26 Dose: 25 mg Famotidine (Pepcid Pf Inj) 20 mg IV.PUSH Q12HR [facility] Last Admin: 09/26/18 11:16 Dose: 20 mg Glucagon (Glucagon Inj) 1 mg OTHER PRN PRN PRN Reason: for Hypoglycemia Protocol Heparin Sodium (Porcine) (Heparin Inj) 5,000 units SQ Q8HR [facility] Last Admin: 09/26/18 06:05 Dose: 5,000 units Hydralazine HCl (Apresoline Inj) 10 mg IV.PUSH Q4H PRN PRN Reason: SBP >180/DBP >100 Last Admin: 09/20/18 22:09 Dose: 10 mg Sodium Chloride (Ns Inj) 1,000 mls @ 42 mls/hr IV.CONT .[id number] [facility] Last Admin: 09/26/18 11:21 Dose: 70 mls/hr Phenylephrine HCl 40 mg/ (Sodium Chloride) 500 mls @ 30 mls/hr IV.CONT TITRATE PRN; Protocol PRN Reason: See Protocol Last Titration: 09/16/18 17:33 Dose: Infused Insulin Aspart (Novolog Insulin Correctional Sugar Inj) 0 unit SQ ACHS [facility]; Protocol Last Admin: 09/26/18 11:21 Dose: 3 unit Labetalol HCl (Trandate Inj) 10 mg IV.PUSH Q20M PRN PRN Reason: SBP >180/DBP >100 Last Admin: 09/19/18 21:32 Dose: 10 mg Lactulose (Lactulose Liq) 30 ml PO DAILY PRN PRN Reason: SEVERE CONSITIPATION Levetiracetam (Keppra Liq) 500 mg PO BID [facility] Last Admin: 09/25/18 20:56 Dose: 500 mg Metoprolol Tartrate (Lopressor Inj) 5 mg IV.PUSH Q6H PRN PRN Reason: Pulse > 100 Last Admin: 09/15/18 18:12 Dose: 5 mg Naloxone HCl (Narcan Inj) 0.4 mg IV.PUSH UNSCH PRN PRN Reason: SEE LABEL COMMENTS Ondansetron HCl (Zofran Inj) 4 mg IV.PUSH Q6H PRN PRN Reason: NAUSEA OR VOMITING Last Admin: 09/24/18 18:36 Dose: 4 mg Ondansetron HCl (Zofran Odt) 4 mg PO Q6H PRN PRN Reason: NAUSEA OR VOMITING Oxycodone HCl (Roxicodone) 5 mg PO Q4H PRN PRN Reason: pain 3-10 Last Admin: 09/25/18 22:37 Dose: 5 mg Phenazopyridine HCl (Pyridium) 100 mg PO DAILY PRN PRN Reason: PAIN/BURNING DURING URINATION Pravastatin Sodium (Pravachol) 40 mg PO [facility] Last Admin: 09/25/18 20:56 Dose: 40 mg Senna/Docusate Sodium (Deena-Colace) 1 tab PO BID [facility] Last Admin: 09/26/18 11:21 Dose: 1 tab Sennosides (Senokot) 17.2 mg PO Q12H PRN PRN Reason: Moderate Constipation Sodium Chloride (Ns Flush) 2 ml IV.FLUSH BID [facility] Last Admin: 09/26/18 11:19 Dose: Not Given Sodium Chloride (Ns Flush) 2 ml IV.FLUSH UNSCH PRN PRN Reason: FLUSH AFTER USING IV ACCESS Terbutaline Sulfate (Brethine Inj) 1 mg SQ UNSCH PRN PRN Reason: For Extravasation Allergies Allergy/AdvReac Type Severity Reaction Status Date / Time No Known Allergies Allergy Verified 09/15/18 01:40 EST Home Medications Medication Instructions Recorded Confirmed Type glyburide 5 mg PO BID 09/14/18 09/15/18 History metformin 500 mg PO BID 09/14/18 09/15/18 History Exam - Physical Examination Vital Signs / I&O: Vital Signs 09/25/18 12:00 09/25/18 13:00 09/25/18 14:00 Temperature Pulse Rate 52 L 70 74 Respiratory Rate 20 Blood Pressure 118/71 Pulse Oximetry 96 09/25/18 15:00 09/25/18 15:47 09/25/18 16:00 Temperature 98.6 F Pulse Rate 72 74 70 Respiratory Rate 20 Blood Pressure 98/42 L Pulse Oximetry 97 09/25/18 17:00 09/25/18 18:00 09/25/18 19:00 Temperature Pulse Rate 74 72 68 Respiratory Rate Blood Pressure Pulse Oximetry 09/25/18 19:30 09/25/18 20:00 09/25/18 21:00 Temperature 99.0 F Pulse Rate 72 74 Respiratory Rate 18 18 Blood Pressure 112/65 Pulse Oximetry 99 09/25/18 22:00 09/25/18 23:00 09/25/18 23:10 Temperature Pulse Rate 78 81 Respiratory Rate 18 Blood Pressure Pulse Oximetry 09/26/18 00:00 09/26/18 00:27 09/26/18 01:59 Temperature 98.7 F 98.5 F Pulse Rate 82 60 79 Respiratory Rate 18 17 Blood Pressure 132/76 129/58 L Pulse Oximetry 98 95 09/26/18 03:50 09/26/18 03:52 09/26/18 08:40 Temperature 98.4 F 98.5 F Pulse Rate 73 78 78 Respiratory Rate 17 17 Blood Pressure 156/70 H 113/55 L Pulse Oximetry 94 L 96 Intake & Output 09/25/18 09/26/18 09/26/18 18:59 06:59 18:59 Intake Total 1780 / 1780 1480 / 1480 Output Total 650 / 650 850 / 850 Balance 1130 / 1130 630 / 630 Weight 58.8 kg Intake: IV 1200 / 1200 1000 / 1000 Heparin/D5W 25,000 U/250 mL 25, 200 / 200 000 unit In 250 ml @ Per Protocol IV.CONT TITRATE PRN Rx #:[id number] NS Inj 1,000 ML @ 42 mls/hr IV. 1000 / 1000 1000 / 1000 CONT .[id number] [facility] Rx#:[id number] Oral 580 / 580 480 / 480 Output: Urine 650 / 650 650 / 650 Urine Amount (Catheter) 200 / 200 Indwelling Urethral Catheter 200 / 200 Other: Date of Last Bowel Movement 09/25/18 09/25/18 # Bowel Movements 0 Intake & Output 09/24/18 09/25/18 09/26/18 09/27/18 06:59 06:59 06:59 06:59 Intake Total 1520 / 1520 530 / 530 3260 / 3260 Output Total 2049 900 / 900 1500 / 1500 Balance -530 / -530 -370 / -370 1760 / 1760 Weight 56.8 kg 58.8 kg 58.8 kg General: No acute distress, Other (Awake and alert; family at bedside.) Respiratory: Lungs CTA, Non-labored respirations, BS equal Gastrointestinal: Positive bowel sounds, Non-distended, Non-tender Date of Last Bowel Movement: 09/25/18 Cardiovascular: Normal rate, No edema, Regular rhythm Skin: Other (Right ankle external fixator in place; pin sites are intact) Musculoskeletal: Swelling (Right lower extremity distally) Psychiatric: Cooperative, Appropriate mood & affect - Neurologic Orientation: oriented to: Self, Situation Neurologic: Pupils (PERRLA), EOM (Intact), Visual donnelly (Grossly intact), Facial symmetry (Symmetric), Speech (Aphasic; patient is indicating yes and no but decreased accuracy; she is following commands with gestures well) Motor: Right Upper Extremity (4+/5), Left Upper Extremity (5/5), Right Lower Extremity (Right lower extremity fixator in place; moves toes to command), Left Lower Extremity (5/5) Spasticity: None noted Sensory: Appears to be intact to light touch throughout DTRs: Normal (2+ bilateral upper extremities) Babinski: Negative (Deferred) Clonus: Negative (Deferred) Results - Labs CBC & Chem 7: 09/26/18 05:03 09/26/18 05:03 Labs: Laboratory Results - last 24 hr 09/25/18 09/25/18 09/25/18 11:50 16:39 19:59 WBC RBC Hgb Hct MCV MCH MCHC RDW Plt Count MPV Sodium Potassium Chloride Carbon Dioxide Anion Gap BUN Creatinine Estimated GFR POC Glucose 209 H 226 H 154 H Random Glucose Calcium Magnesium Iron TIBC % Saturation Ferritin Vitamin B12 Folate 09/26/18 09/26/18 09/26/18 05:03 05:03 05:03 WBC 6.0 RBC 3.08 L Hgb 8.8 L Hct 27.1 L MCV 87.9 MCH 28.7 MCHC 32.6 RDW 13.4 Plt Count 184 MPV 9.7 Sodium 145 Potassium 3.6 Chloride 107 Carbon Dioxide 30.1 Anion Gap 8 BUN 5 L Creatinine 0.51 Estimated GFR Greater than 89 POC Glucose Random Glucose 163 H Calcium 7.9 L Magnesium 1.8 Iron 24 L TIBC 251 % Saturation 9.6 L Ferritin 80 Vitamin B12 445 Folate 18.4 H 09/26/18 09:02 WBC RBC Hgb Hct MCV MCH MCHC RDW Plt Count MPV Sodium Potassium Chloride Carbon Dioxide Anion Gap BUN Creatinine Estimated GFR POC Glucose 222 H Random Glucose Calcium Magnesium Iron TIBC % Saturation Ferritin Vitamin B12 Folate - Imaging Impressions Carotid Stent with Emboli Filter 09/23/18 00:00 CONCLUSION: 1. Atherosclerotic plaque generating 50-60% stenoses of the bilateral common carotid artery origins as well as the left carotid bulb/ICA. Successful stenting of the left CCA origin and left carotid bulb/ICA. 2. No significant stenosis involving the right ICA. Consideration could be made to stenting of the right common carotid origin. 3. Variant anatomy with a replaced right subclavian artery, very low carotid bifurcations and right vertebral artery origin from the carotid bulb as detailed above.. 4. Ultrasound examination at 6, 12, 18 and 24 months following procedure should be performed to evaluate stent patency. Assessment and Plan (1) Closed trimalleolar fracture of ankle Status: Acute Code(s): S82.853A - Displaced trimalleolar fracture of unspecified lower leg, initial encounter for closed fracture (2) Acute ischemic left MCA stroke Status: Acute Code(s): I63.512 - Cerebral infarction due to unspecified occlusion or stenosis of left middle cerebral artery (3) Aphasia due to acute stroke Status: Acute Code(s): I63.9 - Cerebral infarction, unspecified; R47.01 - Aphasia - Plan Assessment: 1. Left MCA CVA with aphasia and mild right hemiparesis 2. Right trimalleolar fracture status post external fixator placement for ORIF 09/27/18 3. Impaired mobility and ADLs due to above 4. Diabetes mellitus 5. History of tobacco abuse Recommendations: 1. Physical therapy addressing bed mobility. Patient is nonweightbearing due to right lower extremity external fixator per orthopedic recommendations. Nursing will obtain clearance to mobilize out of bed nonweightbearing to the right lower extremity from medical service. 2. Speech therapy has assessed swallow and patient tolerated mechanical soft diet with thin liquids. Aphasia to be addressed 3. Occupational Therapy is addressing ADLs and now mod to max assist 4. Case management is addressing discharge planning in conjunction with family possibly for inpatient rehab 5. Will follow while hospitalized and at discharge as appropriate Thank you for this consult (1) Closed trimalleolar fracture of ankle Qualifiers: Encounter type: initial encounter Laterality: right Qualified Code(s): S82.851A - Displaced trimalleolar fracture of right lower leg, initial encounter for closed fracture
--- NOTE | 2018-09-26 14:03 | P.PN ---
Subjective Interval history: Follow up for acute ischemic left MCA stroke with aphasia, trimalleolar ankle fracture, diabetes, anemia. The patient is seen with her at bedside. She has expressive aphasia and difficulty answering questions, although can answer simple yes/no questions. Denies any significant pain of the right ankle. Denies any chest pain or shortness of breath. She is tolerating oral intake and happy to be eating more solid foods. Had long discussion regarding plan after discharge, patient agrees to going to [facility] short term if this is an option. Physical Exam Vital signs: Vital Signs 09/25/18 14:00 09/25/18 15:00 09/25/18 15:47 Temperature 98.6 F Pulse Rate 74 72 74 Respiratory Rate 20 Blood Pressure 98/42 L Pulse Oximetry 97 09/25/18 16:00 09/25/18 17:00 09/25/18 18:00 Temperature Pulse Rate 70 74 72 Respiratory Rate Blood Pressure Pulse Oximetry 09/25/18 19:00 09/25/18 19:30 09/25/18 20:00 Temperature 99.0 F Pulse Rate 68 72 Respiratory Rate 18 18 Blood Pressure 112/65 Pulse Oximetry 99 09/25/18 21:00 09/25/18 22:00 09/25/18 23:00 Temperature Pulse Rate 74 78 81 Respiratory Rate Blood Pressure Pulse Oximetry 09/25/18 23:10 09/26/18 00:00 09/26/18 00:27 Temperature 98.7 F 98.5 F Pulse Rate 82 60 Respiratory Rate 18 18 17 Blood Pressure 132/76 129/58 L Pulse Oximetry 98 95 09/26/18 01:59 09/26/18 03:50 09/26/18 03:52 Temperature 98.4 F Pulse Rate 79 73 78 Respiratory Rate 17 Blood Pressure 156/70 H Pulse Oximetry 94 L 09/26/18 08:40 09/26/18 12:15 Temperature 98.5 F 98 F Pulse Rate 78 61 Respiratory Rate 17 17 Blood Pressure 113/55 L 106/56 L Pulse Oximetry 96 99 Intake & Output 09/25/18 09/26/18 09/26/18 18:59 06:59 18:59 Intake Total 1780 / 1780 1480 / 1480 Output Total 650 / 650 850 / 850 Balance 1130 / 1130 630 / 630 Weight 58.8 kg Intake: IV 1200 / 1200 1000 / 1000 Heparin/D5W 25,000 U/250 mL 25, 200 / 200 000 unit In 250 ml @ Per Protocol IV.CONT TITRATE PRN Rx #:[id number] NS Inj 1,000 ML @ 42 mls/hr IV. 1000 / 1000 1000 / 1000 CONT .[id number] [facility] Rx#:[id number] Oral 580 / 580 480 / 480 Output: Urine 650 / 650 650 / 650 Urine Amount (Catheter) 200 / 200 Indwelling Urethral Catheter 200 / 200 Other: Date of Last Bowel Movement 09/25/18 09/25/18 09/25/18 # Bowel Movements 0 Narrative: GENERAL: Well-nourished, well-developed pleasant middle aged female patient in [facility]. SKIN: Warm and dry. No rash. HEENT: Normocephalic. Atraumatic. Pupils equal and round. Mucous membranes pink and moist. NECK: Supple. Trachea midline. CARDIOVASCULAR: Regular rate and rhythm. No murmur appreciated. RESPIRATORY: No accessory muscle use. Clear to auscultation. Breath sounds equal bilaterally. GASTROINTESTINAL: Abdomen soft, non-tender, nondistended. Normoactive bowel sounds x4. MUSCULOSKELETAL: No obvious deformities. Extremities without clubbing, cyanosis , or edema. RLE with external fixation, pin sites clean, no drainage, minimal edema, distal sensation intact with brisk capillary refill. NEUROLOGICAL: Awake and alert. Moving all extremities spontaneously. 5/5 BUE strength, 5/5 LLE strength, difficulty assessing strength of RLE due to external fixation. +Expressive aphasia. PSYCHIATRIC: Appropriate mood and affect; insight and judgment normal. - Urinary Catheter Management Indwelling Urethral Catheter Cath placed during this visit: yes Reason for continuing: Acute urinary retention Insertion date: 09/16/18 Insertion time: 18:30 Results - Labs CBC & Chem 7: 09/26/18 05:03 09/26/18 05:03 Laboratory Results - last 24 hr 09/25/18 09/25/18 09/26/18 16:39 19:59 05:03 WBC 6.0 RBC 3.08 L Hgb 8.8 L Hct 27.1 L MCV 87.9 MCH 28.7 MCHC 32.6 RDW 13.4 Plt Count 184 MPV 9.7 Sodium Potassium Chloride Carbon Dioxide Anion Gap BUN Creatinine Estimated GFR POC Glucose 226 H 154 H Random Glucose Calcium Magnesium Iron TIBC % Saturation Ferritin Vitamin B12 Folate 09/26/18 09/26/18 09/26/18 05:03 05:03 09:02 WBC RBC Hgb Hct MCV MCH MCHC RDW Plt Count MPV Sodium 145 Potassium 3.6 Chloride 107 Carbon Dioxide 30.1 Anion Gap 8 BUN 5 L Creatinine 0.51 Estimated GFR Greater than 89 POC Glucose 222 H Random Glucose 163 H Calcium 7.9 L Magnesium 1.8 Iron 24 L TIBC 251 % Saturation 9.6 L Ferritin 80 Vitamin B12 445 Folate 18.4 H 09/26/18 12:44 WBC RBC Hgb Hct MCV MCH MCHC RDW Plt Count MPV Sodium Potassium Chloride Carbon Dioxide Anion Gap BUN Creatinine Estimated GFR POC Glucose 226 H Random Glucose Calcium Magnesium Iron TIBC % Saturation Ferritin Vitamin B12 Folate - Imaging Head MRI 09/15/18 00:00 CONCLUSION: 1. Focal areas of restricted diffusion in the left frontal, left parietal and left insular lobes characteristic of acute middle cerebral artery infarcts. 2. No evidence of hemorrhage or significant edema. Head CT 09/16/18 03:00 CONCLUSION: Evolving left MCA territory hypodensities. No evidence of hemorrhage Ankle X-Ray 09/17/18 00:00 CONCLUSION: No significant change in alignment of the trimalleolar fracture dislocation. Ankle X-Ray 09/19/18 00:00 CONCLUSION: Distal tibia and fibular fractures again seen. Carotid Stent with Emboli Filter 09/23/18 00:00 CONCLUSION: 1. Atherosclerotic plaque generating 50-60% stenoses of the bilateral common carotid artery origins as well as the left carotid bulb/ICA. Successful stenting of the left CCA origin and left carotid bulb/ICA. 2. No significant stenosis involving the right ICA. Consideration could be made to stenting of the right common carotid origin. 3. Variant anatomy with a replaced right subclavian artery, very low carotid bifurcations and right vertebral artery origin from the carotid bulb as detailed above.. 4. Ultrasound examination at 6, 12, 18 and 24 months following procedure should be performed to evaluate stent patency. Chest X-Ray 09/23/18 17:36 CONCLUSION: 1. No acute abnormality or significant interval change. Myocardial Perfusion Scan Nuc Med 09/24/18 00:00 CONCLUSION: 1. No reversible perfusion defect to indicate stress-induced myocardial ischemia identified. - Procedures 09/18/18 - BEDSIDE REDUCTION OF RIGHT LE BY ORTHO 09/19/18 - Closed reduction of right ankle with external fixation Assessment and Plan - Plan 53-year-old white female who is a [employer] with [employer], originally admitted with a trimalleolar ankle fracture to the [place] emergency department , then developed strokelike symptoms and underwent TPA on 09/15. Neurology has been following. Patient ultimately underwent initial stage repair on 09/19/[address] over right ankle and foot. Involving infarction noted on left MCA distribution on follow-up CT scan. Acute ischemic left MCA stroke with expressive aphasia Bilateral carotid stenosis -Head CTA 09/15 showed Abrupt proximal left MCA occlusion. -Neck CTA 09/25 showed High-grade stenosis at the origin of the right common carotid artery and moderately severe stenosis at the origin of the left common carotid artery; 50-60% carotid bifurcation stenosis also present bilaterally; Moderate concentric stenosis of the proximal left subclavian artery estimated at 50%; Widely patent aberrant right subclavian artery. -Brain MRI 09/15 reviewed, shows Focal areas of restricted diffusion in the left frontal/parietal/insular lobes characteristic of acute MCA infarcts; No hemorrhage or edema -Head CT 09/16 shows Evolving left MCA territory hypodensities. No evidence of hemorrhage -Status post TPA administration on 09/15. -On aspirin, Plavix and statin. D/c heparin gtt. -Neurology following, appreciate recommendations -Vascular surgery recommended left carotid stent instead of a CEA due to anatomic variance. Carotid stent placed 09/23. -continue rehab efforts with PT/OT/ST -Anticipate discharge to [facility], discussed with case management Hypotension: transient -Following carotid stent placement on 09/23/2018 the patient developed hypotension. -EKG showed inverted T waves as well as some ST depression. -Given IVF, blood pressure has improved -Trops negative x 3. -Cardiology consult appreciated. -Nuclear Stress test negative. -Cardiology signed off. -telemetry Diabetes mellitus, with acute hyperglycemia -Monitor bedside glucose ACHS and low dose sliding scale. Trimalleolar ankle fracture -Neurovascular checks, maintain splint and s/p closed reduction w/ external fixation. -OK to start Plavix per ortho. -orthopedics following -plan for repeat surgery tomorrow 09/27 Hypokalemia -secondary to decreased PO intake. -replete with PO KCl and monitor. Normocytic Anemia -Hgb has been consistently dropping throughout admission from 11.9 down to 8.8 today 09/26 -no reports of bleeding -checked iron studies which are consistent with iron deficiency, started on ferrous sulfate bid -folate/B12 wnl -check stool hemoccult -continue to monitor CBC DVT Prophylaxis: Heparin Discharge Planning: Going to OR tomorrow 09/27. Plan for patient to go to [facility] when ok with ortho and neuro.
[2018-09-26] MEDS: Ferrous Sulfate 325 MG Tablet PO SCH (16:59)
[2018-09-27] MEDS: Heparin - SQ 10,000 UNITS/ML Vial SQ SCH ×4 (00:57→21:10)
[2018-09-27] MEDS ORDERED: Metoprolol Tartrate 25 MG Tablet PO ONE (05:22)
[2018-09-27] MEDS ORDERED: Chlorhexidine Gluconate 2% 1 Pack (2 Cloths) TOPICAL ONE (05:22)
[2018-09-27] MEDS ORDERED: Sodium Chlor 0.9% Inj 500 ML IV.SIG SCH (06:00)
--- NOTE | 2018-09-27 07:03 | P.PNOP ---
Subjective Interval history: s/p exfix right ankle improved. cleare by neuro Physical Exam Vital signs: Vital Signs 09/26/18 08:00 09/26/18 08:40 09/26/18 09:00 Temperature 98.5 F Pulse Rate 61 78 64 Respiratory Rate 17 Blood Pressure 113/55 L Pulse Oximetry 96 09/26/18 12:00 09/26/18 12:15 09/26/18 16:00 Temperature 98 F Pulse Rate 61 61 64 Respiratory Rate 17 Blood Pressure 106/56 L Pulse Oximetry 99 09/26/18 16:20 09/26/18 19:24 09/26/18 19:59 Temperature 98.5 F 99.5 F Pulse Rate 61 88 Respiratory Rate 18 18 19 Blood Pressure 184/80 H 141/67 H Pulse Oximetry 97 09/26/18 20:08 09/26/18 21:54 09/26/18 23:50 Temperature 99.0 F Pulse Rate 76 68 Respiratory Rate 18 18 Blood Pressure 131/66 Pulse Oximetry 97 09/27/18 02:53 09/27/18 04:10 Temperature 98.1 F Pulse Rate 61 Respiratory Rate 18 18 Blood Pressure 147/68 H Pulse Oximetry 98 Intake & Output 09/26/18 09/27/18 09/27/18 18:59 06:59 18:59 Intake Total 600 / 600 Output Total 800 / 800 850 / 850 Balance -200 / -200 -850 / -850 Intake: Oral 600 / 600 Output: Urine Amount (Catheter) 800 / 800 850 / 850 Indwelling Urethral Catheter 800 / 800 850 / 850 Other: Date of Last Bowel Movement 09/25/18 09/25/18 Narrative: RLE: swelling improved. blisters healing. exfix in place - Urinary Catheter Management Indwelling Urethral Catheter Cath placed during this visit: yes Reason for continuing: Acute urinary retention Insertion date: 09/16/18 Insertion time: 18:30 Results - Labs CBC & Chem 7: 09/26/18 05:03 09/26/18 05:03 Laboratory Results - last 24 hr 09/26/18 09/26/18 09/26/18 05:03 09:02 12:44 POC Glucose 222 H 226 H Iron 24 L TIBC 251 % Saturation 9.6 L Ferritin 80 Vitamin B12 445 Folate 18.4 H 11/15/18 11/15/18 17:20 21:21 POC Glucose 217 H 277 H Iron TIBC % Saturation Ferritin Vitamin B12 Folate - Procedures 09/18/18 - BEDSIDE REDUCTION OF RIGHT LE BY ORTHO 09/19/18 - Closed reduction of right ankle with external fixation Assessment and Plan - Assessment and Plan 1) Right trimalleolar ankle fracture s/p exfix -surgery today with Stacy for removal of exfix and ORIF of ankle POD 0 s/p ORIF right ankle -NWB -maintain splint at all times -elevate -CM for DC planning -ortho surgeries complete -f/u with Stacy or ADA in 2 weeks
[2018-09-27 07:08] LABS: Hematocrit 26.3 % (35.0-46.0); Mean Corpuscular HGB Conc 34.1 % (32.0-36.0); Mean Corpuscular Hemoglobin 29.2 pg (27.0-34.0); Mean Corpuscular Volume 85.7 fL (80.0-100.0); Mean Platelet Volume 9.6 fL (7.0-11.0); Platelet Count 188 th/mm3 (150-450); Red Blood Count 3.07 mil/mm3 (4.00-5.30); Red Cell Distribution Width 13.2 % (11.6-17.2)
[2018-09-27] MEDS ORDERED: ceFAZolin 1 GM Premix Inj 2 GM/100 ML PIGGYBACK IV.SIG ONE (07:11)
[2018-09-27] MEDS ORDERED: Glycopyrrolate Inj 1 MG/5 ML Syringe IV.PUSH ONE (10:07)
[2018-09-27] MEDS ORDERED: Lidocaine PF 1% Inj 5 ML Syringe OTHER ONE (10:07)
[2018-09-27] MEDS ORDERED: Neostigmine Inj 5 MG/5 ML Syringe IV.PUSH ONE (10:07)
[2018-09-27] MEDS ORDERED: Morphine Inj 4 MG/ML Vial IV.PUSH PRN (11:26)
[2018-09-27] MEDS ORDERED: Post-op Orders (for Pharmacy) OTHER STA (11:26)
--- NOTE | 2018-09-27 11:33 | P.OP ---
- Preoperative Diagnosis (1) Closed trimalleolar fracture of ankle Date of procedure: 09/27/18 Procedure: Removal of external fixation, open reduction internal fixation right ankle trimalleolar fracture Anesthesia: GETA Surgeon: Arvind Linder MD Stone Paver: Alessio Alamo PA-C The surgical procedure was assisted by my physician claims assistant. My P.A. presence was necessary throughout this case for the manipulation and positioning of the surgical extremity. My P.A. was assisting me throughout the duration of this procedure. The skill set of a physician claims assistant was medically necessary to complete this procedure. During the surgical case the salesperson surgical appliances was working at the back table and the physician claims assistant was directly assisting me. Operation and Findings: Implants used: ITS/Biomet Plan of activity: Nonweightbearing Details of procedure: Patient was seen and evaluated preoperatively and found to have a displaced right trimalleolar ankle fracture. Informed consent was obtained after a detailed discussion of risk and benefits of surgery. The operative site was marked. Patient was brought to the OR, placed on the OR table, and given IV sedation and general endotracheal anesthesia. IV antibiotics were given preoperatively. A timeout procedure was performed. Procedure began with removal of the external fixation. The clamps were loosened. The clamps and bars were removed. All of the pins were removed except for the calcaneus pin. This pin was left in place to apply traction to aid in reduction of the fracture. The right leg was prepped with alcohol followed by Hibiclens and draped in the usual sterile fashion. Attention was turned towards the distal fibula. A four-inch incision was made over the distal fibula. The subcutaneous tissue was dissected with Bovie. The fracture site was visualized. The fracture site was cleaned with curets. The fracture was now reduced. The fracture keyed into anatomic alignment. K-wires were used to hold provisional fixation. Next attention was turned towards the medial malleolus. The medial fracture was exposed through a 3 cm incision. Fracture site was cleaned with curettes. Fracture was manipulated. Excellent alignment was achieved. K wires were used to hold provisional fixation. 2 guidepins for the 4.0 cannulated screws were placed in a retrograde fashion across the fracture. Fluoroscopy was used to confirm guidepin placement. Cannulated drill was placed over the guidepin. Appropriate length screw was now placed. Good compression was applied. Fluoroscopy confirmed well aligned fracture with well-placed hardware. Next attention was turned towards the posterior malleolus. A large fracture tenaculum was placed behind the fibula. The posterior malleolus fragment was carefully manipulated. Fracture keyed in anatomic alignment. The fracture tenaculum was used to hold provisional fixation. 3 percutaneous incisions were made along the anterior tibia. Guide pins for the 4.0 cannulated screws were placed from anterior to posterior. Fluoroscopy confirmed appropriate guidepin placement. Cannulated drill was placed over the guidepins. 3 appropriate length screws were now placed. Good compression was obtained. Fracture tenaculum was removed. Attention was now turned back to the fibula. A distal fibula plate was selected. The plate was provisionally held to bone with K-wires. 3.5 cortical screws were used to compress the plate to bone. Multiple screws were placed above and below the fracture. All screws were premeasured and predrilled for appropriate length. Next, attention was turned to the syndesmosis. The syndesmosis was stressed. There was no widening of the syndesmosis with external rotation of the ankle. Incisions were thoroughly irrigated. The subcutaneous tissue was closed with 3- 0 Vicryl and the skin was closed with 3-0 nylon. Sterile dressings were applied. A well molded well-padded splint was applied. The patient was transferred to Recovery in stable condition. Needle and sponge counts were correct
[2018-09-27] MEDS ORDERED: fentaNYL Citrate Inj 100 MCG/2 ML Ampul ONE (12:17)
[2018-09-27] MEDS ORDERED: *morphine SULFATE 4 MG/ML PERIprocedure ONLY ONE (12:35)
[2018-09-27] MEDS: Insulin NovoLOG Aspart Correctional Sugar Inj SQ SCH ×4 (12:54→21:10)
[2018-09-27] MEDS: Senna/Docusate Sodium 8.6/50 MG Tablet PO SCH ×2 (12:55→20:46)
[2018-09-27] MEDS: Famotidine PF Inj 20 MG/2 ML Vial IV.PUSH SCH ×2 (12:55→20:46)
[2018-09-27] MEDS: Aspirin 325 MG Tablet PO SCH (12:55)
--- NOTE | 2018-09-27 14:36 | XR ---
EXAM DATE: 09/27/2018 2:29 PM EST AGE/SEX: 53 years / Female INDICATIONS: ORIF right ankle. CLINICAL DATA: This is the patient's initial encounter. Patient reports that signs and symptoms have been present for 1 day and indicates a pain score of Nonresponsive. MEDICAL/SURGICAL HISTORY: Non-responsive. Non-responsive. COMPARISON: No prior exams available for comparison. FINDINGS: Intraoperative examination demonstrates interval plating of the patient's bimalleolar fracture. Align ment of the fracture is excellent post plating. CONCLUSION: Excellent alignment of the fracture post plating. Electronically signed by: Darwin Mora MD 09/27/2018 2:34 PM EST
[2018-09-27] MEDS: Calcium/Vitamin D 250/125 MG Tablet PO SCH ×2 (14:46→18:17)
--- NOTE | 2018-09-27 16:49 | P.PN ---
Subjective Interval history: Follow up for acute ischemic left MCA stroke with aphasia, trimalleolar ankle fracture, diabetes, anemia. The patient is seen s/p ortho surgery with removal of external fixator with internal fixation. She is drowsy post surgery. Denies any medical complaints. Seen with multiple family members at bedside who report the patient is anxious to start rehab and get out of bed. No other concerns at this time. Physical Exam Vital signs: Vital Signs 09/26/18 19:24 09/26/18 19:59 09/26/18 20:08 Temperature 99.5 F Pulse Rate 88 76 Respiratory Rate 18 19 Blood Pressure 141/67 H Pulse Oximetry 09/26/18 21:54 09/26/18 23:50 09/27/18 02:53 Temperature 99.0 F Pulse Rate 68 Respiratory Rate 18 18 18 Blood Pressure 131/66 Pulse Oximetry 97 09/27/18 04:10 09/27/18 08:15 09/27/18 12:09 Temperature 98.1 F 98.2 F 98.0 F Pulse Rate 61 80 74 Respiratory Rate 18 16 17 Blood Pressure 147/68 H 160/81 H 185/84 H Pulse Oximetry 98 96 96 09/27/18 12:15 09/27/18 12:30 09/27/18 12:45 Temperature Pulse Rate 77 84 70 Respiratory Rate 17 15 16 Blood Pressure 168/74 H 174/74 H 139/65 Pulse Oximetry 96 93 L 92 L 09/27/18 12:56 09/27/18 13:00 Temperature Pulse Rate 68 Respiratory Rate 16 15 Blood Pressure 147/74 H Pulse Oximetry 92 L Intake & Output 09/26/18 09/27/18 09/27/18 18:59 06:59 18:59 Intake Total 600 / 600 675 / 675 Output Total 800 / 800 850 / 850 350 / 350 Balance -200 / -200 -850 / -850 325 / 325 Intake: Oral 600 / 600 Anesthesia Amount 675 / 675 Output: Estimated Blood Loss 50 / 50 Urine Amount (Catheter) 800 / 800 850 / 850 300 / 300 Indwelling Urethral Catheter 800 / 800 850 / 850 300 / 300 Other: Date of Last Bowel Movement 09/25/18 09/25/18 Narrative: GENERAL: Well-nourished, well-developed pleasant middle aged female patient in [facility]. Drowsy post surgery today. SKIN: Warm and dry. No rash. HEENT: Normocephalic. Atraumatic. Pupils equal and round. Mucous membranes pink and moist. CARDIOVASCULAR: Regular rate and rhythm. No murmur appreciated. RESPIRATORY: No accessory muscle use. Clear to auscultation. Breath sounds equal bilaterally. GASTROINTESTINAL: Abdomen soft, non-tender, nondistended. Normoactive bowel sounds x4. MUSCULOSKELETAL: No obvious deformities. Extremities without clubbing, cyanosis , or edema. RLE with surgical dressing and splint, CDI, ex-fix removed. RLE distal sensation intact with brisk capillary refill. NEUROLOGICAL: Awake and alert. Moving all extremities spontaneously with 5/5 BUE strength, 5/5 LLE strength, difficulty assessing strength of RLE due to fracture/splint. +Expressive aphasia. PSYCHIATRIC: Appropriate mood and affect; insight and judgment normal. - Urinary Catheter Management Indwelling Urethral Catheter Cath placed during this visit: yes Reason for continuing: Acute urinary retention Insertion date: 09/16/18 Insertion time: 18:30 Results - Labs CBC & Chem 7: 09/27/18 06:43 09/26/18 05:03 Laboratory Results - last 24 hr 09/26/18 09/26/18 09/27/18 17:20 21:21 06:43 WBC 6.0 RBC 3.07 L Hgb 9.0 L Hct 26.3 L MCV 85.7 MCH 29.2 MCHC 34.1 RDW 13.2 Plt Count 188 MPV 9.6 POC Glucose 217 H 277 H 09/27/18 09/27/18 08:23 12:13 WBC RBC Hgb Hct MCV MCH MCHC RDW Plt Count MPV POC Glucose 178 H 184 H - Imaging Impressions Ankle X-Ray 09/27/18 00:00 CONCLUSION: Excellent alignment of the fracture post plating. 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 Neurology has been following. Patient ultimately underwent initial stage repair on 09/19/[address] over right ankle and foot. Involving infarction noted on left MCA distribution on follow-up CT scan. Acute ischemic left MCA stroke with expressive aphasia Bilateral carotid stenosis -Head CTA 09/15 showed Abrupt proximal left MCA occlusion. -Neck CTA 09/25 showed High-grade stenosis at the origin of the right common carotid artery and moderately severe stenosis at the origin of the left common carotid artery; 50-60% carotid bifurcation stenosis also present bilaterally; Moderate concentric stenosis of the proximal left subclavian artery estimated at 50%; Widely patent aberrant right subclavian artery. -Brain MRI 09/15 reviewed, shows Focal areas of restricted diffusion in the left frontal/parietal/insular lobes characteristic of acute MCA infarcts; No hemorrhage or edema -Head CT 09/16 shows Evolving left MCA territory hypodensities. No evidence of hemorrhage -Status post TPA administration on 09/15. -On aspirin, Plavix and statin. D/c heparin gtt. -Neurology following, appreciate recommendations -Vascular surgery recommended left carotid stent instead of a CEA due to anatomic variance. Carotid stent placed 09/23. -continue rehab efforts with PT/OT/ST -Anticipate discharge to [facility] on 09/28, discussed with case management Hypotension: transient -Following carotid stent placement on 09/23/2018 the patient developed hypotension. -EKG showed inverted T waves as well as some ST depression. -Given IVF, blood pressure has improved -Trops negative x 3. -Cardiology consult appreciated. -Nuclear Stress test negative. -Cardiology signed off. -telemetry Diabetes mellitus, with acute hyperglycemia -Monitor bedside glucose ACHS and low dose sliding scale. Trimalleolar ankle fracture -Neurovascular checks, maintain splint and s/p closed reduction w/ external fixation. -OK to start Plavix per ortho. -orthopedics following -09/18/18 -bedside reduction of RLE by ortho -09/19/18 - OR for Closed reduction of right ankle with external fixation -09/27/18 - OR for Removal of external fixation, open reduction internal fixation right ankle trimalleolar fracture -no further surgeries per ortho, cleared for discharge to rehab Hypokalemia -secondary to decreased PO intake. -replete with PO KCl and monitor. Normocytic Anemia -Hgb has been consistently dropping throughout admission from 11.9 down to 8.8 today 09/26 -no reports of bleeding -checked iron studies which are consistent with iron deficiency, started on ferrous sulfate bid -folate/B12 wnl -check stool hemoccult -continue to monitor CBC, improved to 9.0 today DVT Prophylaxis: Heparin Discharge Planning: Plan for patient to go to [facility] tomorrow 09/28
[2018-09-27] MEDS: ceFAZolin 2 GM Premix Inj 2 GM/50 ML PIGGYBACK IV.SIG SCH (17:05)
[2018-09-27] MEDS: Ferrous Sulfate 325 MG Tablet PO SCH ×2 (17:47)
[2018-09-27] MEDS: Vancomycin Inj 1,000 MG in Sodium Chlor 0.9% Inj 250 ML IV.SIG SCH (21:01)
[2018-09-28] MEDS: ceFAZolin 2 GM Premix Inj 2 GM/50 ML PIGGYBACK IV.SIG SCH ×2 (02:51→09:29)
[2018-09-28] MEDS: Heparin - SQ 10,000 UNITS/ML Vial SQ SCH (06:18)
--- NOTE | 2018-09-28 08:36 | P.PNOP ---
Subjective Interval history: pain under control. Physical Exam Vital signs: Vital Signs 09/27/18 12:09 09/27/18 12:15 09/27/18 12:30 Temperature 98.0 F Pulse Rate 74 77 84 Respiratory Rate 17 17 15 Blood Pressure 185/84 H 168/74 H 174/74 H Pulse Oximetry 96 96 93 L 09/27/18 12:45 09/27/18 12:56 09/27/18 13:00 Temperature Pulse Rate 70 68 Respiratory Rate 16 16 15 Blood Pressure 139/65 147/74 H Pulse Oximetry 92 L 92 L 09/27/18 20:00 09/28/18 00:00 09/28/18 04:00 Temperature 98.9 F 99.0 F 98.1 F Pulse Rate 81 95 H 80 Respiratory Rate 20 19 19 Blood Pressure 159/84 H 150/68 H 164/76 H Pulse Oximetry 96 94 L 95 Intake & Output 09/27/18 09/28/18 09/28/18 18:59 06:59 18:59 Intake Total 825 / 825 300 / 300 Output Total 350 / 350 775 / 775 Balance 475 / 475 -475 / -475 Intake: IV 150 / 150 300 / 300 Vancomycin Inj 1,000 MG In NS 250 / 250 Inj 250 ML @ 200 mls/hr IV.SIG Q12H JULIAN Rx#:[id number] Ancef 2 GM Premix Inj 2 gm In 50 / 50 50 / 50 50 ml @ 200 mls/hr IV.SIG Q8H JULIAN Rx#:[id number] Anesthesia Amount 675 / 675 Output: Estimated Blood Loss 50 / 50 Urine Amount (Catheter) 300 / 300 775 / 775 Indwelling Urethral Catheter 300 / 300 775 / 775 Other: # Voids 1 Date of Last Bowel Movement 09/25/18 09/25/18 Narrative: in bed, nad, at bedside splint RLE intact nvi - Urinary Catheter Management Indwelling Urethral Catheter Cath placed during this visit: yes Reason for continuing: Acute urinary retention Insertion date: 09/16/18 Insertion time: 18:30 Results - Labs CBC & Chem 7: 09/27/18 06:43 09/26/18 05:03 Laboratory Results - last 24 hr 09/27/18 09/27/18 09/27/18 12:13 17:02 21:03 POC Glucose 184 H 426 H 340 H 09/28/18 02:05 POC Glucose 218 H - Imaging Impressions Ankle X-Ray 09/27/18 00:00 CONCLUSION: Excellent alignment of the fracture post plating. - Procedures 09/18/18 - BEDSIDE REDUCTION OF RIGHT LE BY ORTHO 09/19/18 - Closed reduction of right ankle with external fixation 09/27/18 - Removal of external fixation, open reduction internal fixation right ankle trimalleolar fracture Assessment and Plan - Ortho Post Op Day # 1 - Assessment and Plan 1) Right trimalleolar ankle fracture -surgery with [facility] for removal of exfix and ORIF of ankle POD#1 POD 1 s/p ORIF right ankle -NWB -maintain splint at all times -elevate -CM for DC planning -ortho surgeries complete - cleared -ok for plavix/anticoagulation -f/u with Stacy or [facility] in 2 weeks
[2018-09-28 08:45] VITALS: BP 174/80; PULSE 91; TEMP 98.5; O2SAT 94
[2018-09-28] MEDS: Calcium/Vitamin D 250/125 MG Tablet PO SCH (09:12)
[2018-09-28] MEDS: Senna/Docusate Sodium 8.6/50 MG Tablet PO SCH (09:13)
[2018-09-28] MEDS: Famotidine PF Inj 20 MG/2 ML Vial IV.PUSH SCH (09:13)
[2018-09-28] MEDS: Aspirin 325 MG Tablet PO SCH (09:13)
--- NOTE | 2018-09-28 09:28 | P.DS ---
Date of admission: 09/15/18 03:47 Primary care physician: Steven Palomo MD Attending physician on discharge: Martell Gonzalez Anticipated date of discharge: 09/28/18 Brief History from admission: 52-year-old female with past medical history of diabetes, tobacco abuse who tripped over a rake in the yard and presented to [facility] with right ankle pain. She was diagnosed with R trimalleolar fracture and preparations were being made for transfer to [facility] for eventual operative management. While in the [place] ED, she became agitated with aphasia and R facial droop. Stroke alert was called. CT brain was negative for hemorrhage. She had no head trauma. Initial preference was to avoid systemic TPA due to the fracture. Stat CTA brain and carotids were performed and she was transferred to [facility] for possible IR thrombectomy/ intraarterial lysis. CTA demonstrates proximal L MCA occlusion. Dr. Dunlap states images were reviewed by Dr. Mora and patient was not a candidate for IR intervention due to carotid atherosclerotic disease with significant stenosis. At that point, decision was made to proceed with systemic TPA which has been administered. Patient has persistent expressive aphasia. No prior h/o stroke or TIA. No seizure. She was drinking tonight with friends before this happened, but denies daily EtOH. Patient update on day of discharge: Patient reports continued ankle pain after surgery yesterday. She is on oxycodone 5mg however not relieving the pain currently, discussed with the patient to increase to 10mg for 1-2 days, patient agrees. She is tolerating oral intake although still not eating much. Denies any other medical complaints including no headache, lightheadedness, chest pain, shortness of breath, or abdominal complaints. Discussed with and RN at bedside. Going to [facility] today. 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 Acute ischemic left MCA stroke with expressive aphasia, found Bilateral carotid stenosis. Head CTA 09/15 showed Abrupt proximal left MCA occlusion. Status post TPA administration on 09/15. Neck CTA 09/25 showed High-grade stenosis at the origin of the right common carotid artery and moderately severe stenosis at the origin of the left common carotid artery; 50-60% carotid bifurcation stenosis also present bilaterally; Moderate concentric stenosis of the proximal left subclavian artery estimated at 50%; Widely patent aberrant right subclavian artery. Brain MRI 09/15 reviewed, shows Focal areas of restricted diffusion in the left frontal/parietal/insular lobes characteristic of acute MCA infarcts; No hemorrhage or edema. Repeat Head CT 09/16 shows Evolving left MCA territory hypodensities. No evidence of hemorrhage. On aspirin, Plavix and statin. D/c heparin gtt. Neurology consulted. Vascular surgery recommended left carotid stent instead of a CEA due to anatomic variance. Carotid stent placed 09/23. Continued rehab efforts with PT/OT/ST. Patient improving, but will need extensive therapy after discharge. Anticipate discharge to [facility] today 09/28, discussed with case management Hypotension: transient. Following carotid stent placement on 09/23/2018 the patient developed hypotension. EKG showed inverted T waves as well as some ST depression. Given IVF, blood pressure has improved. Trops negative x 3. Cardiology consulted. Nuclear Stress test negative. Cardiology signed off. Diabetes mellitus, with acute hyperglycemia. HgbA1c 8.4. Monitor bedside glucose ACHS and low dose sliding scale. Trimalleolar ankle fracture: acute. 09/18 s/p bedside reduction of RLE by ortho. 09/19/18 s/p Closed reduction of right ankle with external fixation. Maintain splint. OK to start Plavix per ortho. 09/27 s/p Removal of external fixation, open reduction internal fixation right ankle trimalleolar fracture. No further surgeries per ortho, cleared for discharge to rehab. Normocytic Anemia: Hgb has been consistently dropping throughout admission from 11.9 down to 8.8 on 09/26. No reports of bleeding. Checked iron studies which are consistent with iron deficiency, started on ferrous sulfate bid. Folate/B12 wnl. Check stool hemoccult, pending at discharge. CBC improving, hgb 9.0. Continue to monitor while at rehab. - Time Spent with Patient Total time spent providing and/or coordinating discharge services: Greater than 30 minutes - Quality: VTE Deep Vein Thrombosis/Pulmonary Embolism Present on Admission: No Exam Vital signs: Vital Signs 09/27/18 12:09 09/27/18 12:15 09/27/18 12:30 Temperature 98.0 F Pulse Rate 74 77 84 Respiratory Rate 17 17 15 Blood Pressure 185/84 H 168/74 H 174/74 H Pulse Oximetry 96 96 93 L 09/27/18 12:45 09/27/18 12:56 09/27/18 13:00 Temperature Pulse Rate 70 68 Respiratory Rate 16 16 15 Blood Pressure 139/65 147/74 H Pulse Oximetry 92 L 92 L 09/27/18 20:00 09/28/18 00:00 09/28/18 04:00 Temperature 98.9 F 99.0 F 98.1 F Pulse Rate 81 95 H 80 Respiratory Rate 20 19 19 Blood Pressure 159/84 H 150/68 H 164/76 H Pulse Oximetry 96 94 L 95 09/28/18 08:00 Temperature 98.5 F Pulse Rate 91 H Respiratory Rate 17 Blood Pressure 174/80 H Pulse Oximetry 94 L Intake & Output 09/27/18 09/28/18 09/28/18 18:59 06:59 18:59 Intake Total 825 / 825 300 / 300 Output Total 350 / 350 775 / 775 Balance 475 / 475 -475 / -475 Intake: IV 150 / 150 300 / 300 Vancomycin Inj 1,000 MG In NS 250 / 250 Inj 250 ML @ 200 mls/hr IV.SIG Q12H JULIAN Rx#:[id number] Ancef 2 GM Premix Inj 2 gm In 50 / 50 50 / 50 50 ml @ 200 mls/hr IV.SIG Q8H JULIAN Rx#:[id number] Anesthesia Amount 675 / 675 Output: Estimated Blood Loss 50 / 50 Urine Amount (Catheter) 300 / 300 775 / 775 Indwelling Urethral Catheter 300 / 300 775 / 775 Other: # Voids 1 Date of Last Bowel Movement 09/25/18 09/25/18 Narrative: GENERAL: Well-nourished, well-developed pleasant middle aged female patient in [facility]. SKIN: Warm and dry. No rash. HEENT: Normocephalic. Atraumatic. Pupils equal and round. Mucous membranes pink and moist. CARDIOVASCULAR: Regular rate and rhythm. 2/6 systolic murmur noted RESPIRATORY: No accessory muscle use. Clear to auscultation. Breath sounds equal bilaterally. GASTROINTESTINAL: Abdomen soft, non-tender, nondistended. Normoactive bowel sounds x4. MUSCULOSKELETAL: No obvious deformities. Extremities without clubbing, cyanosis , or edema. RLE with surgical dressing and splint, CDI, ex-fix removed. RLE distal sensation intact with brisk capillary refill. NEUROLOGICAL: Awake and alert. Moving all extremities spontaneously with 5/5 BUE strength, 5/5 LLE strength, difficulty assessing strength of RLE due to fracture/splint. +Expressive aphasia. PSYCHIATRIC: Appropriate mood and affect; insight and judgment normal. Results Procedures completed during hospitalization: 09/18/18 - Bedside reduction of RLE by ortho 09/19/18 - Closed reduction of right ankle with external fixation 09/25/18 - IR performed stenting of left carotid 09/27/18 - Removal of external fixation, open reduction internal fixation right ankle trimalleolar fracture Labs on day of discharge: Labs from last 24 hours 09/28/18 09/28/18 09/27/18 09:20 02:05 21:03 POC Glucose 206 H 218 H 340 H 09/27/18 09/27/18 17:02 12:13 POC Glucose 426 H 184 H - Impressions ITS Impressions Head MRI 09/15/18 00:00 CONCLUSION: 1. Focal areas of restricted diffusion in the left frontal, left parietal and left insular lobes characteristic of acute middle cerebral artery infarcts. 2. No evidence of hemorrhage or significant edema. Head CT 09/16/18 03:00 CONCLUSION: Evolving left MCA territory hypodensities. No evidence of hemorrhage . Carotid Stent with Emboli Filter 09/23/18 00:00 CONCLUSION: 1. Atherosclerotic plaque generating 50-60% stenoses of the bilateral common carotid artery origins as well as the left carotid bulb/ICA. Successful stenting of the left CCA origin and left carotid bulb/ICA. 2. No significant stenosis involving the right ICA. Consideration could be made to stenting of the right common carotid origin. 3. Variant anatomy with a replaced right subclavian artery, very low carotid bifurcations and right vertebral artery origin from the carotid bulb as detailed above.. 4. Ultrasound examination at 6, 12, 18 and 24 months following procedure should be performed to evaluate stent patency. Chest X-Ray 09/23/18 17:36 CONCLUSION: 1. No acute abnormality or significant interval change. Myocardial Perfusion Scan Nuc Med 09/24/18 00:00 CONCLUSION: 1. No reversible perfusion defect to indicate stress-induced myocardial ischemia identified. Ankle X-Ray 09/27/18 00:00 CONCLUSION: Excellent alignment of the fracture post plating. Discharge Plan - Discharge Disposition Patient Disposition: 62 Rehab Inpatient - Discharge Condition Condition: Stable - Discharge Order Discharge Orders: Discharge Order (Routine); Ordered 09/27/18 Ordered By: Amanda Mo - Discharge Details Anticipated Discharge Date: 09/27/18 - Physicians Team Primary Care Provider: Steven Palomo Attending Provider: Martell Gonzalez Other Providers: Trudy Delvalle MD ; Pelon Dempsey MD ; Everardo Jack MD ; Arvind Linder MD ; Bianca Deng MD ; Moody Narayanan MD
[2018-09-28] MEDS: Vancomycin Inj 1,000 MG in Sodium Chlor 0.9% Inj 250 ML IV.SIG SCH (09:29)
[2018-09-28] MEDS: Insulin NovoLOG Aspart Correctional Sugar Inj SQ SCH (09:30)
[2018-09-28] MEDS ORDERED: Polyethylene Glycol 3350 17 GM Packet PO SCH (10:00)
[2018-09-28 13:09] VITALS: RESP 18
== END 2018-09-28 13:03 | DRG 492 ==
LOC: NEDDLT 22:48 → N03 09-15 03:25 → HCIS 09-20 18:30 → N06 09-26 00:21
PROVIDERS: ADMIT Internal Medicine; ATTEND Internal Medicine
PROC: ORIFANK (2018-09-27 10:07)
CPT/HCPCS: 36223; 37215; 37218; 70450; 70496; 70498; 70551; 71010; 71045; 73560; 73600; 73610; 76000; 76937; 78452; 80048; 80053; 80061; 80307; 82550; 82607; 82728; 82746; 82948; 82962; 83036; 83540; 83550; 83605; 83735; 84100; 84132; 84439; 84443; 84484; 84702; 85025; 85027; 85384; 85610; 85730; 86850; 86900; 86901; 87641; 92507; 92523; 92526; 92610; 93005; 93017; 93306; 94150; 97110; 97163; 97164; 97167; 97168; 97530; 97535; 99145; 99152; 99153; 99291; 99292; A4646; A9502; C1713; C1760; C1769; C1776; C1874; C1876; C1884; C1887; C1893; C1894; C9238; G0195; G0269; J0131; J0360; J0461; J0690; J1100; J1580; J1644; J1815; J1953; J2060; J2250; J2270; J2370; J2405; J2704; J2710; J2785; J2997; J3010; J3370; J3480; J7030; J7040; J7050; J7120; Q9949; Q9967